=== PATIENT | female | born 1965 | race African-American/Black ===

== ENCOUNTER 2016-08-08 16:43 | Inpatient (IN) ==
[2016-08-08] MEDS ORDERED: FUROSEMIDE 40 MG/4 ML VIAL IV STA (18:02)
--- NOTE | 2016-08-08 18:07 | EKG Report ---
Stationary ECG Study [facility] Test Date: 08/08/2016 5:43:10 PM Pat Name: RYAN BUCK Department: Room: Gender: F Loan Counselor: DAVID Soto : 1965 Requested by: César Cage Order Number: [id number] Reading MD: ALEXSANDER WHEELER Intervals [place] Rate: 83 P: 63 WV: 153 QRS: 85 QRSD: 86 T: 70 QT: 400 QTc: 440 Interpretive Statements SINUS RHYTHM LOW QRS VOLTAGE IN PRECORDIAL LEADS Poor R wave progression Electronically Signed On 08-10-16 12:28:03 CDT by ALEXSANDER WHEELER [email or web address]
[2016-08-08] MEDS ORDERED: FUROSEMIDE 100 MG/10 ML VIAL ONE (18:29)
[2016-08-08 18:35] LABS: Basophils % 0.3 % (0.0-0.8); Eosinophils # 0.1 10*3/uL (0.0-0.87); Eosinophils % 0.8 % (0.00-10.9); Hematocrit 29.2 VOL% (35.7-47.0); Hemoglobin 9.2 GM/DL (12.0-16.0); Immature Granulocytes % 0.6 %; Immature Granulocytes Absolute 0.07 #; Lymphocytes # 1.1 10*3/uL (1.4-4.0); Lymphocytes % 9.4 % (21.3-54.2); Mean Corpuscular HGB Conc 31.5 GM/DL (32-36); Mean Corpuscular Hemoglobin 28 PG (27-34); Mean Platelet Volume 11.9 FL (9.6-12.0); Monocytes # 0.9 10*3/uL (0.11-0.8); Monocytes % 7.6 % (1.7-12.7); NRBC # 0.02 10*3/uL; Neutrophils # 9.7 10*3/uL (1.4-7.4); Neutrophils % 81.3 % (38.7-73.9); Platelet Count 245 T/CUMM (130-400); Red Blood Count 3.32 MC/CUMM (3.8-5.5); Red Cell Distribution Width 16.4 % (9.3-17.3); White Blood Count 11.9 T/CUMM (4-12)
--- NOTE | 2016-08-08 18:39 | XRay Report ---
Referring Physician: César Rendon Exam: XR chest 1V portable Date: August 08, 2016 at 6:28 PM Reason: Chest pain, shortness of breath Comparison: Chest one view portable July 24, 2016 Findings: The cardiac silhouette is again enlarged. The interstitial markings are also prominent bilaterally, which is concerning for mild pulmonary edema. No pneumothorax is identified, but there may be minimal right pleural fluid. The osseous structures appear stable. Impression: 1. Cardiomegaly. 2. Mild pulmonary edema. PROCEDURE INTERPRETED AT [facility] DEPARTMENT OF RADIOLOGY Final Report Signed by: Dr. Eber Gutierrez
[2016-08-08 19:25] LABS: Calcium 8.5 MG/DL (8.5-10.1); Magnesium 2.1 MG/DL (1.8-2.4); Osmolality,Calculated 292.5 MOS/KG (273-304); Potassium 4.2 MMOL/L (3.5-5.1); Troponin I Only 0.028 NG/ML (0.00-0.045)
[2016-08-08] MEDS ORDERED: NON-FORMULARY MEDICATION (Chlorpheniramine/Phenylephrine [Ed-A-Hist 4 Mg-10 Mg Tablet] 1 E PO PRN (20:42)
--- NOTE | 2016-08-08 20:50 | Hospitalist History & Physical ---
Assessment and Plan (1) Edema Status: Acute Assessment and plan: The patient is admitted to the hospital with peripheral edema. I am suspicious that she has nephrotic type proteinuria. The patient was given diuretic in the emergency room with very little urine output and her intravascular volume may not be expanded. The patient will have urinalysis and protein check. We will give intravenous diuretic medication. We will rule out myocardial infarction by EKG and enzymes. Will have evaluation by national service officer and choir member. We will recheck electrolytes in the morning and observe blood pressure on present regimen. I am going leave off JOSELIN inhibitor for now due to previous episodes of worsening renal function on JOSELIN inhibitor. Current Visit: Yes Qualifiers: Edema type: generalized Qualified Code(s): R60.1 - Generalized edema (2) CKD stage 4 due to type 2 diabetes mellitus Status: Chronic Current Visit: Yes (3) Chest pain Status: Acute Current Visit: Yes Qualifiers: Chest pain type: precordial pain Qualified Code(s): R07.2 - Precordial pain (4) Hypertension Problem details: Continue home meds Status: Chronic Current Visit: No Qualifiers: Hypertension type: essential hypertension Qualified Code(s): I10 - Essential (primary) hypertension (5) Diabetes mellitus Status: Chronic Current Visit: No Qualifiers: Diabetes mellitus type: type 2 Diabetes mellitus complication detail: with chronic kidney disease Diabetes mellitus superintendent marine oil terminal insulin use: with superintendent marine oil terminal use Chronic kidney disease stage: stage 4 (severe) (6) Lower extremity edema Status: Resolved Current Visit: No History of Present Illness Chief complaint: Edema and chest pain History of present illness: Ms. Bethea is a 51 year old female followed by Dr. Gerry Pineda. The patient has diabetes mellitus type 2 with chronic kidney disease stage 4. The patient comes to the hospital tonight with complaint of swelling of abdomen as well as thighs legs and feet. The patient's symptoms are associated with substernal chest pressure worse on the left-hand side causing her to be somewhat short of breath with mild cough. The patient states compliance with home medications. The patient denies fever, chills, palpitations. The patient's shortness of breath and swelling are moderate to severe, continuous, and worsening. The patient was discharged from hospital about 8 days ago and at that time was prescribed diuretics. The patient has not been on JOSLEIN in temperature or angiotensin receptor to because they caused her renal failure to be worse. Home Medications Medication Instructions Recorded Confirmed Type Ferrous Sulfate 325 mg PO DAILY 01/30/16 08/08/16 History Insulin Regular [HumuLIN R] See Protocol SUBCUT DAILY 07/14/16 08/08/16 History amLODIPine [Norvasc] 10 mg PO DAILY 07/14/16 08/08/16 History Furosemide Tab [Lasix Tab] 40 mg PO DAILY #30 tablet 07/19/16 08/08/16 Rx hydrALAZINE TAB [Apresoline Tab] 10 mg PO BID #60 tablet 07/19/16 08/08/16 Rx metOLazone [Metolazone] 5 mg PO DAILY #30 tablet 07/19/16 08/08/16 Rx Gabapentin 300 mg PO BID #60 capsule 07/28/16 08/08/16 Rx Insulin Detemir [Levemir] 30 unit SUBCUT QAM #0 bottle 07/28/16 08/08/16 Rx Azithromycin [Zithromax] 500 mg PO DAILY #5 tablet 08/05/16 08/08/16 Rx Albuterol Inhaler [Proventil 2 puff INH Q4H PRN 08/08/16 08/08/16 History Inhaler] Atorvastatin [Lipitor] 20 mg PO DAILY 08/08/16 08/08/16 History Carvedilol [Carvedilol] 6.25 mg PO BID 08/08/16 08/08/16 History Chlorpheniramine/Phenylephrine 1 each PO TID PRN 08/08/16 08/08/16 History [Ed-A-Hist 4 mg-10 mg Tablet] Lisinopril [Prinivil] 10 mg PO DAILY 08/08/16 08/08/16 History Pantoprazole Tab [Protonix Tab] 40 mg PO AC SUPPER 08/08/16 08/08/16 History Allergies Allergy/AdvReac Type Severity Reaction Status Date / Time morphine Allergy HIVES Verified 08/08/16 17:18 Medical,Surgical,& Family Hx - Medical History Cardio: History of: CHF (RECENT HOSP.), Hypertension, Valvular Heart Disease ( Mitral regurgitation), Cardiovascular Problems (cardiomegaly) No history of: NV, Pacemaker Psychological: History of: Anxiety Disorders, Schizophrenia (pt states she knows she's schizophrenic) Neurology: No history of: Cerebrovascular Accident, Seizures HEENT: History of: Eye Problem (glasses, cataracts in right eye) Endocrine: History of: Diabetes Mellitus (IDDM), Diabetes Mellitus (NIDDM), Dyslipidemia, Thyroid Disorder No history of: Adrenal Disease Respiratory: History of: Asthma, Bronchitis, COPD, Obstructive Sleep Apnea, Pneumonia Renal: History of: Renal Problems Genitourinary: No history of: Kidney Stones Gastrointestinal: History of: GERD, Hemorrhoids Musculoskeletal: History of: Musculoskeletal Problems (weakness) No history of: Amputation Hematology: History of: Anemia (chronic kidney disease), Blood Transfusion Reaction (pt broke out in rash) - Surgical History Cardiac Surgeries: Sugical HX of: Cardiac Catheterization (Right heart catheterization) HEENT Surgeries: Patient denies: Tonsilectomy & Adenoidectomy Abdominal Surgeries: Patient denies: Appendectomy, Cholecystectomy, Colonoscopy, EGD Reproductive Surgeries: Surgical HX of;: Tubal Ligation - Family History Family History: Reports;: Family Cancer (uncle had prostate and cousin had breast), Family Diabetes (mom, dad, siblings), Family Heart Disease (mom, dad, siblings), Family Hypertension (mom, dad, siblings), Family Stroke (aunt, mom) Denies;: Family Anesthesia Reaction, Family Psychiatric Problems - Social History Smoking Status: Current some day smoker Frequency of Alcohol Use: None Type of Drug Use: None Marital Status: Single Lives With:: Parent Functional capacity: independent ambulation 12 point system: reviewed and no additional remarkable complaints except as stated Exam - Constitutional Vitals: Period Temp Pulse Resp BP Sys/De La Garza Pulse Ox Last 24 Hr 97.9 F 81-84 13-22 133-138/90-90 94-96 Exam: Constitutional System: Mild distress. No tremulousness. Head: Normocephalic, atraumatic. Ears, Nose and Throat System: No evidence of Otitis or Mastoiditis. No epistaxis or discharge Eyes System: Pupils equal, round, and reactive. Extraocular muscles intact. Neck: Supple, without adenopathy, 1+ jugular venous distention. No thyromegaly , neck mass, or prior surgery apparent. Respiratory System: Chest rales one third up back to auscultation. Cardiovascular System: Heart with regular rate and rhythm. Positive S4 murmur. GI System: Abdomen soft, nontender. Normo active bowel sounds present. Protuberant consistent with minimal ascites Musculoskeletal System: limbs with 2+ pedal edema. Full distal pulses. Neurological System: Mild globin stocking sensory deficit. No aphasia Psychiatric System: Conversation is rational Results - Labs CBC & BMP: 08/08/16 18:24 08/08/16 18:24 Lab Results: I have reviewed the past 24 hour labs Labs: Echocardiogram June 30 reveals moderate reduced left ventricular systolic function with ejection fraction 35% and diastolic dysfunction at that time she had pulmonary hypertension at 43 mmHg estimated - Diagnostic Findings Procedure: Chest x-ray: image reviewed by me, report reviewed by me ( Cardiomegaly and pulmonary edema)
[2016-08-08] MEDS ORDERED: ONDANSETRON 4 MG/2 ML VIAL IV PRN (21:32)
[2016-08-08] MEDS ORDERED: GLUCAGON 1 MG VIAL IM PRN (21:32)
[2016-08-08] MEDS ORDERED: DEXTROSE 50% 25 GM/50 ML VIAL IV PRN (21:32)
[2016-08-08] MEDS: CARVEDILOL 6.25 MG TABLET PO SCH (22:36)
[2016-08-08] MEDS: ENOXAPARIN 30 MG/0.3 ML SYRINGE SUBCUT SCH (22:37)
[2016-08-08] MEDS: INSULIN LISPRO 100 UNIT/ML SUBCUT SCH (22:37)
[2016-08-08] MEDS: GABAPENTIN 100 MG CAPSULE PO SCH (22:37)
[2016-08-08] MEDS: hydrALAZINE 10 MG TABLET PO SCH (22:37)
[2016-08-09] MEDS ORDERED: PHENOL 1.4% THROAT SPRAY 177 ML BOTTLE PO PRN (01:44)
[2016-08-09 04:10] LABS: Apearance,Urine CLEAR (Clear); Bacteria,Urine Occasional /HPF (Few); Bilirubin,Urine Negative (Negative); Blood, Urine Small mg/dL (Negative); Glucose,Urine (UA) Negative (Negative); Hyaline Casts,Urine 1 /LPF (0-3); Ketones,Urine Negative (Negative); Mucus,Urine Occasional /LPF (Occasional); Nitrite,Urine Negative (Negative); Protein,Urine 30 MG/DL; RBC,Urine 3 /HPF (0-4); Squamous Epithelial Cell,Urine Occasional /HPF (0-10); Urine Color Straw (Yellow); Urine Specific Gravity 1.005 (1.001-1.035); Urine Urobilinogen < 2.0 EU/DL (0.2-1.0); WBC,Urine 6 /HPF (0-6)
[2016-08-09 04:23] LABS: Basophils % 0.4 % (0.0-0.8); Eosinophils # 0.1 10*3/uL (0.0-0.87); Eosinophils % 1.3 % (0.00-10.9); Hematocrit 25.9 VOL% (35.7-47.0); Hemoglobin 8.1 GM/DL (12.0-16.0); Immature Granulocytes % 0.8 %; Immature Granulocytes Absolute 0.07 #; Lymphocytes % 10.7 % (21.3-54.2); Mean Corpuscular HGB Conc 31.3 GM/DL (32-36); Mean Corpuscular Hemoglobin 28 PG (27-34); Mean Corpuscular Volume 87.8 FL (87-102); Mean Platelet Volume 12.1 FL (9.6-12.0); Monocytes # 0.8 10*3/uL (0.11-0.8); Monocytes % 8.5 % (1.7-12.7); NRBC # 0.02 10*3/uL; Neutrophils % 78.3 % (38.7-73.9); Platelet Count 233 T/CUMM (130-400); Red Blood Count 2.95 MC/CUMM (3.8-5.5); Red Cell Distribution Width 16.3 % (9.3-17.3); White Blood Count 8.9 T/CUMM (4-12)
[2016-08-09 04:42] LABS: Calcium 8.6 MG/DL (8.5-10.1); Osmolality,Calculated 288.3 MOS/KG (273-304); Potassium 3.8 MMOL/L (3.5-5.1)
[2016-08-09 04:47] LABS: Troponin I Only 0.029 NG/ML (0.00-0.045)
[2016-08-09 05:04] LABS: Microalbum/Creat Ratio Random 1184.6 RATIO (0-30)
--- NOTE | 2016-08-09 08:16 | EKG Report ---
Stationary ECG Study [facility] Test Date: 08/09/2016 7:51:34 AM Pat Name: RYAN BUCK Department: Room: 271 Gender: F Sheet Sorter: : 1965 Requested by: Jones Anderson Order Number: [id number] Reading MD: MIN IBRAHIM Intervals [place] Rate: 78 P: 60 [place]: 150 QRS: 83 QRSD: 86 T: 72 QT: 420 QTc: 453 Interpretive Statements SINUS RHYTHM LOW QRS VOLTAGE IN EXTREMITY LEADS ANTEROSEPTAL MYOCARDIAL INFARCTION, PROBABLY OLD Electronically Signed On 08-11-16 21:24:47 CDT by MIN IBRAHIM [id number]
[2016-08-09] MEDS ORDERED: amLODIPine 10 MG TABLET PO SCH (09:00)
--- NOTE | 2016-08-09 09:50 | Nephrology Consult Note ---
History of Present Illness Chief complaint: edema History of present illness: Ms. Bethea is a 51 year old female is known to me from previous admissions. She has chronic renal impairment with nephrotic syndrome secondary to diabetic nephropathy. She presents with edema. She was hospitalized recently and received IV fluids and left the hospital with some edema and did not take or increase the dose of diuretics and returns with edema. She denies any significant shortness of breath. On physical exam she is comfortable lying in bed with no respiratory distress her chest is clear heart without rub or gallop abdomen soft nontender extremities she does have edema bilateral legs up to the thigh. Impression nephrotic syndrome with stage II to III chronic kidney disease due to diabetic nephropathy #2 edema secondary to #1 Suggestion I agree with the diuretics and we will discontinue her Martinez she says she has no difficulty voiding. Will follow her diuresis with her daily weight she probably will lose about 5-6 kg. Home Medications Medication Instructions Recorded Confirmed Type Ferrous Sulfate 325 mg PO DAILY 01/30/16 08/08/16 History Insulin Regular [HumuLIN R] See Protocol SUBCUT DAILY 07/14/16 08/08/16 History amLODIPine [Norvasc] 10 mg PO DAILY 07/14/16 08/08/16 History Furosemide Tab [Lasix Tab] 40 mg PO DAILY #30 tablet 07/19/16 08/08/16 Rx hydrALAZINE TAB [Apresoline Tab] 10 mg PO BID #60 tablet 07/19/16 08/08/16 Rx metOLazone [Metolazone] 5 mg PO DAILY #30 tablet 07/19/16 08/08/16 Rx Gabapentin 300 mg PO BID #60 capsule 07/28/16 08/08/16 Rx Insulin Detemir [Levemir] 30 unit SUBCUT QAM #0 bottle 07/28/16 08/08/16 Rx Azithromycin [Zithromax] 500 mg PO DAILY #5 tablet 08/05/16 08/08/16 Rx Albuterol Inhaler [Proventil 2 puff INH Q4H PRN 08/08/16 08/08/16 History Inhaler] Atorvastatin [Lipitor] 20 mg PO DAILY 08/08/16 08/08/16 History Carvedilol [Carvedilol] 6.25 mg PO BID 08/08/16 08/08/16 History Chlorpheniramine/Phenylephrine 1 each PO TID PRN 08/08/16 08/08/16 History [Ed-A-Hist 4 mg-10 mg Tablet] Lisinopril [Prinivil] 10 mg PO DAILY 08/08/16 08/08/16 History Pantoprazole Tab [Protonix Tab] 40 mg PO AC SUPPER 08/08/16 08/08/16 History Allergies Allergy/AdvReac Type Severity Reaction Status Date / Time morphine Allergy HIVES Verified 08/08/16 17:18 Medical,Surgical,& Family Hx - Medical History Cardio: History of: CHF (RECENT HOSP.), Hypertension, Valvular Heart Disease ( Mitral regurgitation), Cardiovascular Problems (cardiomegaly) No history of: MS, Pacemaker Psychological: History of: Anxiety Disorders, Schizophrenia (pt states she knows she's schizophrenic) Neurology: No history of: Cerebrovascular Accident, Seizures HEENT: History of: Eye Problem (glasses, cataracts in right eye) Endocrine: History of: Diabetes Mellitus (IDDM), Diabetes Mellitus (NIDDM), Dyslipidemia, Thyroid Disorder No history of: Adrenal Disease Respiratory: History of: Asthma, Bronchitis, COPD, Obstructive Sleep Apnea, Pneumonia Renal: History of: Renal Problems Genitourinary: No history of: Kidney Stones Gastrointestinal: History of: GERD, Hemorrhoids Musculoskeletal: History of: Musculoskeletal Problems (weakness) No history of: Amputation Hematology: History of: Anemia (chronic kidney disease), Blood Transfusion Reaction (pt broke out in rash) - Surgical History Cardiac Surgeries: Sugical HX of: Cardiac Catheterization (Right heart catheterization) HEENT Surgeries: Patient denies: Tonsilectomy & Adenoidectomy Abdominal Surgeries: Patient denies: Appendectomy, Cholecystectomy, Colonoscopy, EGD Reproductive Surgeries: Surgical HX of;: Tubal Ligation - Family History Family History: Reports;: Family Cancer (uncle had prostate and cousin had breast), Family Diabetes (mom, dad, siblings), Family Heart Disease (mom, dad, siblings), Family Hypertension (mom, dad, siblings), Family Stroke (aunt, mom) Denies;: Family Anesthesia Reaction, Family Psychiatric Problems - Social History Smoking Status: Current some day smoker Frequency of Alcohol Use: None Type of Drug Use: None Review of Systems 12 point system: reviewed and no additional remarkable complaints except as stated Exam - Vital Signs Vital signs: Period Temp Pulse Resp BP Sys/De La Garza Pulse Ox Last 24 Hr 97.2 F-98.5 F 77-81 18-20 106-133/58-89 94-100 - General Appearance General appearance: well-developed, well-nourished, appears started age Neck: no JVD, no thyromegaly, no carotid bruit, supple Respiratory: no kyphosis, no scoliosis Cardiology: no murmurs, no rub, no gallops, no edema, regular rate, regular rhythm, normal S1, normal S2 Gastrointestinal: normoactive bowel sounds Integumentary: no rash, warm and dry Neurologic: no focal deficit, no asterixis, alert and oriented x3, reflexes 2+ and symmetric, gait normal, strength 5/5 Musculoskeletal: no deformities (edematous lower extremities), no erythema, no cyanosis, no clubbing Results - Labs CBC & BMP: 08/09/16 03:36 08/09/16 03:36 Assessment and Plan (1) Lower extremity edema Status: Resolved Current Visit: No (2) Chronic kidney disease Problem details: Creatinine improved to 2.8. Status: Chronic Assessment and plan: Stage 3 CKD with nephrotic syndrome due to DM Current Visit: No Qualifiers: Chronic kidney disease stage: stage 4 (severe) Qualified Code(s): N18.4 - Chronic kidney disease, stage 4 (severe) Specialty Discharge - Follow Up or Referrals - Speciality Discharge Instructions Nephrology Instructions: We will check a serum albumin which should be low. We can remove the Martinez catheter since she is able to get to and from the bathroom fairly well and follow her diuresis with her daily weight.
[2016-08-09] MEDS: GABAPENTIN 100 MG CAPSULE PO SCH ×2 (09:53→20:59)
[2016-08-09] MEDS: metOLazone 5 MG TABLET PO SCH (09:53)
[2016-08-09] MEDS: FERROUS SULFATE 325 MG TABLET PO SCH (09:54)
[2016-08-09] MEDS: ATORVASTATIN 20 MG TABLET PO SCH (09:54)
[2016-08-09] MEDS: CARVEDILOL 6.25 MG TABLET PO SCH (09:55)
[2016-08-09] MEDS: INSULIN REGULAR 100 UNIT/ML SUBCUT SCH (09:55)
[2016-08-09] MEDS: INSULIN LISPRO 100 UNIT/ML SUBCUT SCH ×4 (09:55→21:07)
[2016-08-09] MEDS: FUROSEMIDE 100 MG/10 ML VIAL IV SCH (09:56)
--- NOTE | 2016-08-09 10:39 | Hospitalist Progress Note ---
Assessment and Plan (1) Edema Status: Acute Assessment and plan: The patient is admitted to the hospital with peripheral edema. Preliminary indications confirm diagnosis of nephrosis. The patient has begun to receive intravenous diuretic and creatinine is also improving. Blood pressure is mildly low and I am going to decrease the doses of Coreg and hydralazine. The patient was not able to tolerate JOSELIN or arm on previous occasions due to their effects of worsening renal insufficiency. The plan is to obtain cardiology evaluation of the patient's chest discomfort and to continue diuresis of edema with the advice of the stacker straightener. Current Visit: Yes Qualifiers: Edema type: generalized Qualified Code(s): R60.1 - Generalized edema (2) CKD stage 4 due to type 2 diabetes mellitus Status: Chronic Current Visit: Yes (3) Chest pain Status: Acute Current Visit: Yes Qualifiers: Chest pain type: precordial pain Qualified Code(s): R07.2 - Precordial pain (4) Hypertension Problem details: Continue home meds Status: Chronic Current Visit: No Qualifiers: Hypertension type: essential hypertension Qualified Code(s): I10 - Essential (primary) hypertension (5) Diabetes mellitus Status: Chronic Current Visit: No Qualifiers: Diabetes mellitus type: type 2 Diabetes mellitus complication detail: with chronic kidney disease Diabetes mellitus long term care social worker insulin use: with long term care social worker use Chronic kidney disease stage: stage 4 (severe) (6) Lower extremity edema Status: Resolved Current Visit: No Hospitalist: Subjective Interval history: The patient is now admitted to the hospital with edema of lower extremities and some chest heaviness. The patient has symptoms of nephrotic syndrome due to diabetes mellitus type 2, kidney manifestations, chronic kidney disease which has improved to stage III. The patient has passive affect and has taken up the sick role. I encouraged the patient to be more active and independent in her self-care. I coordinated care with Dr. Warren and with the patient's nurse. Exam - Constitutional Vitals: Period Temp Pulse Resp BP Sys/De La Garza Pulse Ox Last 24 Hr 97.2 F-98.5 F 77-81 18-20 106-133/58-89 94-100 Exam: Constitutional System: Mild distress. No tremulousness. Head: Normocephalic, atraumatic. Ears, Nose and Throat System: No evidence of Otitis or Mastoiditis. No epistaxis or discharge Eyes System: Pupils equal, round, and reactive. Extraocular muscles intact. Neck: Supple, without adenopathy, trace jugular venous distention. No thyromegaly, neck mass, or prior surgery apparent. Respiratory System: Chest rales one third up back to auscultation. Cardiovascular System: Heart with regular rate and rhythm. Positive S4 murmur. GI System: Abdomen soft, nontender. Normo active bowel sounds present. Protuberant consistent with minimal ascites Musculoskeletal System: limbs with 2+ pedal edema. Full distal pulses. Neurological System: Mild globin stocking sensory deficit. No aphasia Psychiatric System: Conversation is rational Results - Labs CBC & BMP: 08/09/16 03:36 08/09/16 03:36 Lab Results: I have reviewed the past 24 hour labs
--- NOTE | 2016-08-09 10:48 | Cardiology Consult Note ---
Assessment and Plan (1) Edema Status: Acute Assessment and plan: She is being diuresed which should help, but she is also on 10 mg of Norvasc which should certainly cause significant peripheral edema. I am going to try to change her medical regimen around and get rid of this medication as it is likely contributing to her peripheral edema. Current Visit: Yes Qualifiers: Edema type: generalized Qualified Code(s): R60.1 - Generalized edema (2) Hypertension Status: Acute Current Visit: Yes (3) CKD stage 4 due to type 2 diabetes mellitus Status: Chronic Assessment and plan: Management per nephrology Current Visit: Yes (4) Acute on chronic combined systolic (congestive) and diastolic (congestive) heart failure Problem details: Appreciate recs from Cards. Continue current medical treatment regimen. Fluid intake limitation. Status: Acute Assessment and plan: The patient has recurrent episodes of congestive heart failure. I do not see that she is ever undergone cardiac catheterization for definitive coronary artery assessment. Once she is medically optimized and her renal function is stable, we might consider a variant of coronary artery assessment. Particularly if she is going to need something done about her mitral valve. In the meantime, we will try to diurese her and optimize her medical management. Current Visit: No (5) Asthma Problem details: Albuterol PRN. Continue home meds. Status: Chronic Current Visit: No (6) Mitral regurgitation Status: Chronic Assessment and plan: I am going to get a repeat echocardiogram to assess the severity of her mitral disease again. This could be playing a role in her recurrent heart failure episodes and may need to be addressed surgically. Current Visit: No (7) Diabetes type 2, uncontrolled Status: Acute Current Visit: Yes History of Present Illness - Consult Narrative History of present illness: Ms. Bethea is a 51 year old female who has a history of multiple medical problems including hypertension, diabetes, cardiomyopathy, chronic renal insufficiency, and congestive heart failure. Essentially the patient was just discharged from the hospital about 8 or 9 days ago with an exacerbation of peripheral edema and heart failure. She comes back into the hospital at this time with the same symptoms. Primarily the symptoms are related to lower extremity edema. The symptoms are moderate in severity. There are no associated symptoms. There are no specific exacerbating or alleviating factors. She does not have any chest pain, palpitations, or significant dyspnea. She denies any orthopnea or PND. She denies any fever, chills, or cough. Her laboratory tests show significant renal insufficiency and proteinuria. Nephrology has been consulted to help with that. She had a couple of echocardiograms in 2016 which showed preserved left ventricular systolic function. Her most recent echocardiogram showed an ejection fraction of 35-40% in June 2016. She also had severe mitral regurgitation on that echo. It appears that she had a right heart catheterization about a year ago with right heart systolic pressures of around 50 mmHg. I do not see that she has ever had left heart catheterization, although the "view PCI" function on the EMR is not working so I cannot see older records at this time. At the time I saw the patient she was lying flat in the bed with no dyspnea or other distress. CC: Jones Anderson MD - Home Medications and Allergies Home Medications: Home Medications Medication Instructions Recorded Confirmed Type Ferrous Sulfate 325 mg PO DAILY 01/30/16 08/08/16 History Insulin Regular [HumuLIN R] See Protocol SUBCUT DAILY 07/14/16 08/08/16 History amLODIPine [Norvasc] 10 mg PO DAILY 07/14/16 08/08/16 History Furosemide Tab [Lasix Tab] 40 mg PO DAILY #30 tablet 07/19/16 08/08/16 Rx hydrALAZINE TAB [Apresoline Tab] 10 mg PO BID #60 tablet 07/19/16 08/08/16 Rx metOLazone [Metolazone] 5 mg PO DAILY #30 tablet 07/19/16 08/08/16 Rx Gabapentin 300 mg PO BID #60 capsule 07/28/16 08/08/16 Rx Insulin Detemir [Levemir] 30 unit SUBCUT QAM #0 bottle 07/28/16 08/08/16 Rx Azithromycin [Zithromax] 500 mg PO DAILY #5 tablet 08/05/16 08/08/16 Rx Albuterol Inhaler [Proventil 2 puff INH Q4H PRN 08/08/16 08/08/16 History Inhaler] Atorvastatin [Lipitor] 20 mg PO DAILY 08/08/16 08/08/16 History Carvedilol [Carvedilol] 6.25 mg PO BID 08/08/16 08/08/16 History Chlorpheniramine/Phenylephrine 1 each PO TID PRN 08/08/16 08/08/16 History [Ed-A-Hist 4 mg-10 mg Tablet] Lisinopril [Prinivil] 10 mg PO DAILY 08/08/16 08/08/16 History Pantoprazole Tab [Protonix Tab] 40 mg PO AC SUPPER 08/08/16 08/08/16 History Allergies/Adverse Reactions: Allergies Allergy/AdvReac Type Severity Reaction Status Date / Time morphine Allergy HIVES Verified 08/08/16 17:18 12 point system: reviewed and no additional remarkable complaints except as stated Medical,Surgical,& Family Hx - Medical History Cardio: History of: CHF (RECENT HOSP.), Hypertension, Valvular Heart Disease ( Mitral regurgitation), Cardiovascular Problems (cardiomegaly) No history of: SC, Pacemaker Psychological: History of: Anxiety Disorders, Schizophrenia (pt states she knows she's schizophrenic) Neurology: No history of: Cerebrovascular Accident, Seizures HEENT: History of: Eye Problem (glasses, cataracts in right eye) Endocrine: History of: Diabetes Mellitus (IDDM), Diabetes Mellitus (NIDDM), Dyslipidemia, Thyroid Disorder No history of: Adrenal Disease Respiratory: History of: Asthma, Bronchitis, COPD, Obstructive Sleep Apnea, Pneumonia Renal: History of: Renal Problems Genitourinary: No history of: Kidney Stones Gastrointestinal: History of: GERD, Hemorrhoids Musculoskeletal: History of: Musculoskeletal Problems (weakness) No history of: Amputation Hematology: History of: Anemia (chronic kidney disease), Blood Transfusion Reaction (pt broke out in rash) - Surgical History Cardiac Surgeries: Sugical HX of: Cardiac Catheterization (Right heart catheterization) HEENT Surgeries: Patient denies: Tonsilectomy & Adenoidectomy Abdominal Surgeries: Patient denies: Appendectomy, Cholecystectomy, Colonoscopy, EGD Reproductive Surgeries: Surgical HX of;: Tubal Ligation - Family History Family History: Reports;: Family Cancer (uncle had prostate and cousin had breast), Family Diabetes (mom, dad, siblings), Family Heart Disease (mom, dad, siblings), Family Hypertension (mom, dad, siblings), Family Stroke (aunt, mom) Denies;: Family Anesthesia Reaction, Family Psychiatric Problems - Social History Smoking Status: Current some day smoker Frequency of Alcohol Use: None Type of Drug Use: None Physical Examination Vital Signs Temp Pulse Resp BP Pulse Ox 97.9 F 83 22 133/90 94 L 08/08/16 17:15 08/08/16 17:15 08/08/16 17:15 08/08/16 17:15 08/08/16 17:15 Other: General: Appears well developed, well nourished, no apparent distress HEENT: Normocephalic, atraumatic Neck: Supple Neck, Midline Trachea, No Bruit, No JVD Cardiac: Regular rhythm, No Murmur, no gallop, no rub Lungs: Clear to auscultation, No Wheeze, Rales, Rhonchi Neuro: Cranial Nerve 2-12 Intact, Motor Function Grossly Intact Abdomen: Soft, Active Bowel Sounds, No Masses, No Pulsations/Bruits Skin: Normal color, no rash Extremities: No Clubbing, No Cyanosis, mild lower extremity edema, Normal Upper Extr. Pulses Musculoskeletal: No acute abnormality noted Psychiatric: The patient does not appear to be anxious or depressed Result/EKG - Labs CBC & BMP: 08/09/16 03:36 08/09/16 03:36 Lab Results: I have reviewed the past 24 hour labs Labs: Laboratory Results - last 24 hr 08/08/16 08/09/16 08/09/16 22:09 02:27 02:32 WBC RBC Hgb Hct MCV MCH MCHC RDW Plt Count MPV Neut % (Auto) Lymph % (Auto) [place] % (Auto) Eos % (Auto) Baso % (Auto) Neut # (Auto) Lymph # (Auto) [place] # (Auto) Eos # (Auto) Baso # (Auto) Immature Gran % Nucleated RBC % Immature Gran # Nucleated RBCs # Sodium Potassium Chloride Carbon Dioxide Anion Gap BUN Creatinine GFR Calculation BUN/Creatinine Ratio Glucose POC Glucose 94 46 L* Calculated Osmolality Calcium Magnesium Total Creatine Kinase Troponin I Urine Color Urine Appearance Urine pH Ur Specific [place] Urine Protein Urine Glucose (UA) Urine Ketones Urine Blood Urine Nitrate Urine Bilirubin Urine Urobilinogen Urine Leukocytes Urine RBC Urine WBC Ur Squamous Epith Cells Urine Bacteria Hyaline Casts Urine Mucus Ur Culture Indicated? Ur Random Creatinine 26 Ur Random Microalbumin 308.0 H Microalb/Creat Ratio 1184.6 H 08/09/16 08/09/16 08/09/16 02:32 02:45 03:36 WBC 8.9 RBC 2.95 L Hgb 8.1 L Hct 25.9 L MCV 87.8 MCH 28 MCHC 31.3 L RDW 16.3 Plt Count 233 MPV 12.1 H Neut % (Auto) 78.3 H Lymph % (Auto) 10.7 L [place] % (Auto) 8.5 Eos % (Auto) 1.3 Baso % (Auto) 0.4 Neut # (Auto) 7.0 Lymph # (Auto) 1.0 L [place] # (Auto) 0.8 Eos # (Auto) 0.1 Baso # (Auto) 0.0 Immature Gran % 0.8 Nucleated RBC % 0.2 Immature Gran # 0.07 Nucleated RBCs # 0.02 Sodium Potassium Chloride Carbon Dioxide Anion Gap BUN Creatinine GFR Calculation BUN/Creatinine Ratio Glucose POC Glucose 77 Calculated Osmolality Calcium Magnesium Total Creatine Kinase Troponin I Urine Color Straw Urine Appearance Clear Urine pH 5.0 Ur Specific [place] 1.005 Urine Protein 30 Urine Glucose (UA) Negative Urine Ketones Negative Urine Blood Small Urine Nitrate Negative Urine Bilirubin Negative Urine Urobilinogen < 2.0 H Urine Leukocytes Negative Urine RBC 3 Urine WBC 6 Ur Squamous Epith Cells Occasional Urine Bacteria Occasional Hyaline Casts 1 Urine Mucus Occasional Ur Culture Indicated? Results to follow Ur Random Creatinine Ur Random Microalbumin Microalb/Creat Ratio 08/09/16 08/09/16 08/09/16 03:36 03:36 07:47 WBC RBC Hgb Hct MCV MCH MCHC RDW Plt Count MPV Neut % (Auto) Lymph % (Auto) [place] % (Auto) Eos % (Auto) Baso % (Auto) Neut # (Auto) Lymph # (Auto) [place] # (Auto) Eos # (Auto) Baso # (Auto) Immature Gran % Nucleated RBC % Immature Gran # Nucleated RBCs # Sodium 141 Potassium 3.8 Chloride 105 Carbon Dioxide 25 Anion Gap 14.8 BUN 41 H Creatinine 2.10 H GFR Calculation 33 BUN/Creatinine Ratio 19.00 Glucose 67 L POC Glucose 109 H Calculated Osmolality 288.3 Calcium 8.6 Magnesium 2.0 Total Creatine Kinase 114 Troponin I 0.029 Urine Color Urine Appearance Urine pH Ur Specific [place] Urine Protein Urine Glucose (UA) Urine Ketones Urine Blood Urine Nitrate Urine Bilirubin Urine Urobilinogen Urine Leukocytes Urine RBC Urine WBC Ur Squamous Epith Cells Urine Bacteria Hyaline Casts Urine Mucus Ur Culture Indicated? Ur Random Creatinine Ur Random Microalbumin Microalb/Creat Ratio - EKG EKG results: interpreted by me
[2016-08-09] MEDS: INSULIN GLARGINE 100 UNIT/ML SUBCUT SCH (12:30)
[2016-08-09] MEDS: ASCORBIC ACID 500 MG TABLET PO SCH ×2 (12:35→20:59)
[2016-08-09] MEDS: PANTOPRAZOLE 40 MG TABLET PO SCH (17:50)
[2016-08-09] MEDS: hydrALAZINE 10 MG TABLET PO SCH (21:00)
[2016-08-09] MEDS: ENOXAPARIN 30 MG/0.3 ML SYRINGE SUBCUT SCH (21:06)
[2016-08-09] MEDS: ALBUTEROL 2.5 MG/3 ML NEB RESP TX PRN (22:11)
[2016-08-10] MEDS: ACETAMINOPHEN 325 MG TABLET PO PRN ×3 (00:44→20:50)
[2016-08-10 05:55] LABS: Calcium 8.1 MG/DL (8.5-10.1); Osmolality,Calculated 288.5 MOS/KG (273-304)
[2016-08-10] MEDS: hydrALAZINE 10 MG TABLET PO SCH ×3 (07:11→21:40)
[2016-08-10] MEDS: ALBUTEROL 2.5 MG/3 ML NEB RESP TX PRN (07:31)
[2016-08-10] MEDS: INSULIN LISPRO 100 UNIT/ML SUBCUT SCH ×4 (08:02→20:52)
[2016-08-10] MEDS: FUROSEMIDE 100 MG/10 ML VIAL IV SCH (08:54)
[2016-08-10] MEDS ORDERED: CARVEDILOL 3.125 MG TABLET PO SCH (09:00)
[2016-08-10] MEDS: INSULIN REGULAR 100 UNIT/ML SUBCUT SCH (09:23)
[2016-08-10] MEDS: FERROUS SULFATE 325 MG TABLET PO SCH (09:24)
[2016-08-10] MEDS: ASCORBIC ACID 500 MG TABLET PO SCH ×2 (09:24→20:50)
[2016-08-10] MEDS: ATORVASTATIN 20 MG TABLET PO SCH (09:24)
[2016-08-10] MEDS: CARVEDILOL 12.5 MG TABLET PO SCH (09:25)
[2016-08-10] MEDS: GABAPENTIN 100 MG CAPSULE PO SCH ×2 (09:25→20:51)
[2016-08-10] MEDS: INSULIN GLARGINE 100 UNIT/ML SUBCUT SCH (09:25)
[2016-08-10] MEDS: metOLazone 5 MG TABLET PO SCH (09:25)
--- NOTE | 2016-08-10 10:24 | Nephrology Progress Note ---
Nephrology - PN: Subj Interval history: Ms. Bethea is seen in follow-up of her chronic renal failure and nephrotic syndrome due to diabetic nephropathy. She is diuresing and improving. We are following her diuretic response with weights and there has been no weight loss yet. We will adjust diuretics to achieve weight loss if none is forthcoming. Exam (PN)-Nephrology - Vital Signs Vital signs: Period Temp Pulse Resp BP Sys/[place] Pulse Ox Last 24 Hr 97.8 F-98.8 F 70-81 18-22 114-138/67-80 90-100 - Lab 08/09/16 03:36 08/10/16 04:19 Most recent lab results Calcium 8.1 MG/DL (8.5-10.1) L 08/10/16 04:19 Magnesium 2.0 MG/DL (1.8-2.4) 08/10/16 04:19 Assessment and Plan (1) Chronic kidney disease Problem details: Creatinine improved to 2.8. Status: Chronic Assessment and plan: Stage 3 CKD with nephrotic syndrome due to DM Current Visit: No Qualifiers: Qualified Code(s): N18.4 - Chronic kidney disease, stage 4 (severe)
--- NOTE | 2016-08-10 12:38 | Hospitalist Progress Note ---
Assessment and Plan (1) CHF (congestive heart failure) Problem details: chronic renal insufficiency, valvular heart disease with mitral regurgitation Status: Acute Assessment and plan: Left ventricular dysfunction with ejection fraction 35-40% with severe mitral regurgitation and moderately severe tricuspid regurgitation. Patient requiring high doses of diuretic therapy due to her chronic kidney disease and nephrotic syndrome related to her chronic diabetes. Current Visit: No Qualifiers: Congestive heart failure chronicity: acute on chronic (2) Hypertension Problem details: Continue home meds Status: Chronic Current Visit: No Qualifiers: Hypertension type: essential hypertension Qualified Code(s): I10 - Essential (primary) hypertension (3) Diabetes mellitus Status: Chronic Current Visit: No Qualifiers: Diabetes mellitus type: type 2 Diabetes mellitus complication detail: with chronic kidney disease Diabetes mellitus prison insulin use: with intermodal customer service use Chronic kidney disease stage: stage 4 (severe) (4) Chronic kidney disease Problem details: Creatinine improved to 2.8. Status: Chronic Current Visit : No Qualifiers: Chronic kidney disease stage: stage 3 (moderate) Qualified Code(s): N18.3 - Chronic kidney disease, stage 3 (moderate) (5) Cardiomyopathy Status: Chronic Current Visit: No (6) Hypertension Status: Chronic Current Visit: Yes (7) Chronic kidney disease Status: Chronic Current Visit: Yes Qualifiers: Chronic kidney disease stage: stage 3 (moderate) Qualified Code(s): N18.3 - Chronic kidney disease, stage 3 (moderate) Hospitalist: Subjective Interval history: Patient seen and examined. No acute events overnight. Case discussed with nursing staff. Labs reviewed. Echocardiogram from June. EF 35-40%. Patient also has severe mitral regurgitation and moderate to severe tricuspid regurgitation. She is being treated with Lasix and Zaroxolyn and is being followed by nephrology. She reports improvement in her symptoms. Exam - Constitutional Vitals: Period Temp Pulse Resp BP Sys/[place] Pulse Ox Last 24 Hr 97.4 F-98.8 F 69-81 18-22 113-138/67-80 90-100 Exam: Constitutional System: Mild distress. No tremulousness. Head: Normocephalic, atraumatic. Ears, Nose and Throat System: No pain or tenderness. No epistaxis or discharge Eyes System: Pupils equal, round, and reactive. Extraocular muscles intact. Neck: Supple, without adenopathy, No jugular venous distention. No thyromegaly, neck mass, or prior surgery apparent. Respiratory System: Chest clear to auscultation. Cardiovascular System: Heart with regular rate and rhythm. No murmur. GI System: Abdomen soft, nontender. Normo active bowel sounds present. Musculoskeletal System: limbs with 2+ pedal edema. Full distal pulses. Neurological System: No discernable sensory deficit. No aphasia Psychiatric System: Conversation is rational Results - Labs CBC & BMP: 08/09/16 03:36 08/10/16 04:19 Lab Results: I have reviewed the past 24 hour labs
--- NOTE | 2016-08-10 16:56 | Cardiology Progress Note ---
I, Tamica Egan RN, am scribing for, and in the presence of, Chan Abebe MD 16:53. Assessment and Plan (1) Edema Status: Acute Assessment and plan: This is acute on chronic. She was admitted because of a exacerbation of her edema. I think she has multiple issues as a cause of this including her LV dysfunction, mitral regurgitation, and moderately increased right-sided pressures. She needs aggressive diuresis but I question her compliance is going to be after discharge Current Visit: Yes Qualifiers: Edema type: generalized Qualified Code(s): R60.1 - Generalized edema (2) Hypertension Status: Chronic Assessment and plan: Patient's blood pressure stable at this time on present medical regimen. Current Visit: Yes (3) CKD stage 4 due to type 2 diabetes mellitus Status: Chronic Assessment and plan: This certainly makes diuresis more difficult. Current Visit: Yes (4) Acute on chronic combined systolic (congestive) and diastolic (congestive) heart failure Status: Acute Assessment and plan: She does not have this by her noncompliance that appears to be present. I suspect at home she is noncompliant with medications and certainly not her diet. Current Visit: Yes (5) Asthma Problem details: Albuterol PRN. Continue home meds. Status: Chronic Assessment and plan: Stable at this time. Current Visit: No (6) Mitral regurgitation Status: Chronic Assessment and plan: Severe by her recent echocardiogram report. Current Visit: Yes (7) Diabetes type 2, uncontrolled Status: Chronic Current Visit: Yes Cardiology - PN: Subj Interval history: [employer]: Dr. Pereira Ms. Bethea has a history of hypertension, diabetes, cardiomyopathy, chronic renal insufficiency, congestive heart failure. She was just discharged from the hospital about a week ago who with an exacerbation of peripheral edema and heart failure. She presented to the emergency department on August 08 with complaints of generalized edema to abdomen and bilateral lower extremities 1 week. Her most recent echocardiogram in June of this year showed ejection fraction of 35-40% with severe mitral regurgitation. Her Norvasc has been discontinued and her carvedilol has been increased 0.5 mg p.o. twice daily. According to records she was given IV diuretic medication emergency department with very little urine output. BNP on admission was 1122, creatinine 2.3. Currently she is sitting up in bed in no acute distress. She denies any chest pain, palpitations, or dizziness. Oxygen is in use via nasal cannula, she states her breathing has improved. metal lather monitor currently shows sinus rhythm with heart rates in the 70s, blood pressure 117/68. She is getting Lasix 120 mg IV daily as well as Zaroxolyn 5 mg p.o. daily. Her creatinine is unchanged from admission at 2.3. History, assessment and evaluation as noted above. When I walked in the room to see the patient she was eating chips i.e.Cheetos. The patient's had a good diuresis. She feels better less short of breath. Certainly the question though her compliance when talking to her about her history and care at home. Her severe mitral regurgitation certainly does not help. Exam (Progress Note) - Constitutional Vitals: Period Temp Pulse Resp BP Sys/[place] Pulse Ox Last 24 Hr 97.8 F-98.8 F 70-81 18-22 114-138/67-80 90-100 General appearance: no acute distress, morbidly obese - Head Head exam: Absent: abrasion, hematoma - Eye Eye exam: Absent: periorbital swelling, laceration to eyelids - Neck Neck exam: Absent: tenderness - Respiratory Respiratory exam: Present: clear to auscultation bilaterally, other (Oxygen via nasal cannula). Absent: accessory muscle use, chest wall tenderness - Cardiovascular Cardiovascular exam: Present: regular rate and rhythm, systolic murmur ( consistent with mitral regurgitation.) - GI/Abdominal GI/Abdominal exam: Present: normal bowel sounds, soft. Absent: distended, tenderness - Extremities Exam Extremities exam: Present: edema (4+ bilateral lower extremities) - Neurological Exam Neurological exam: Present: alert, oriented X3 - Psychiatric Psychiatric exam: Present: normal affect, normal mood - Skin Skin exam: Present: warm, dry Result/EKG - Labs CBC & BMP: 08/09/16 03:36 08/10/16 04:19 Lab Results: I have reviewed the past 24 hour labs Labs: Laboratory Results - last 24 hr 08/09/16 08/09/16 08/09/16 04:41 12:30 17:37 Sodium Potassium Chloride Carbon Dioxide Anion Gap BUN Creatinine GFR Calculation BUN/Creatinine Ratio Glucose POC Glucose 180 H 202 H Calculated Osmolality Calcium Magnesium Albumin 2.2 L 08/09/16 08/10/16 08/10/16 19:20 04:19 07:19 Sodium 139 Potassium 4.0 Chloride 103 Carbon Dioxide 24 Anion Gap 16.0 H BUN 42 H Creatinine 2.30 H GFR Calculation 29 BUN/Creatinine Ratio 18.00 Glucose 124 H POC Glucose 202 H 117 H Calculated Osmolality 288.5 Calcium 8.1 L Magnesium 2.0 Albumin - Impressions Impressions: Telemetry was sinus rhythm. - EKG EKG results: interpreted by me EKG shows: sinus rhythm I, Chan Abebe MD, personally performed the services described in this documentation, ascribed by Tamica Egan RN in my presence, and it is both accurate and complete [id number] .
[2016-08-10] MEDS: PANTOPRAZOLE 40 MG TABLET PO SCH (17:06)
[2016-08-10] MEDS: ENOXAPARIN 30 MG/0.3 ML SYRINGE SUBCUT SCH (20:51)
[2016-08-11 05:20] LABS: Basophils # 0.1 10*3/uL (0.0-0.2); Basophils % 1.2 % (0.0-0.8); Eosinophils # 0.1 10*3/uL (0.0-0.87); Eosinophils % 2.1 % (0.00-10.9); Hematocrit 27.1 VOL% (35.7-47.0); Hemoglobin 8.4 GM/DL (12.0-16.0); Immature Granulocytes % 0.7 %; Immature Granulocytes Absolute 0.05 #; Lymphocytes # 1.2 10*3/uL (1.4-4.0); Lymphocytes % 18.3 % (21.3-54.2); Mean Corpuscular Hemoglobin 27 PG (27-34); Mean Corpuscular Volume 87.4 FL (87-102); Mean Platelet Volume 12.2 FL (9.6-12.0); Monocytes # 0.7 10*3/uL (0.11-0.8); Neutrophils # 4.6 10*3/uL (1.4-7.4); Neutrophils % 67.7 % (38.7-73.9); Platelet Count 252 T/CUMM (130-400); White Blood Count 6.8 T/CUMM (4-12)
[2016-08-11 05:56] LABS: Calcium 8.2 MG/DL (8.5-10.1); Osmolality,Calculated 288.5 MOS/KG (273-304)
[2016-08-11] MEDS: INSULIN LISPRO 100 UNIT/ML SUBCUT SCH ×4 (07:32→21:41)
[2016-08-11] MEDS: INSULIN GLARGINE 100 UNIT/ML SUBCUT SCH (08:37)
[2016-08-11] MEDS: ASCORBIC ACID 500 MG TABLET PO SCH ×2 (08:38→21:37)
[2016-08-11] MEDS: FERROUS SULFATE 325 MG TABLET PO SCH (08:39)
[2016-08-11] MEDS: CARVEDILOL 12.5 MG TABLET PO SCH (08:39)
[2016-08-11] MEDS: metOLazone 5 MG TABLET PO SCH (08:39)
[2016-08-11] MEDS: ATORVASTATIN 20 MG TABLET PO SCH (08:39)
[2016-08-11] MEDS: hydrALAZINE 10 MG TABLET PO SCH ×2 (08:39→21:38)
[2016-08-11] MEDS: GABAPENTIN 100 MG CAPSULE PO SCH ×2 (08:39→21:38)
[2016-08-11] MEDS: FUROSEMIDE 100 MG/10 ML VIAL IV SCH (08:42)
[2016-08-11] MEDS: INSULIN REGULAR 100 UNIT/ML SUBCUT SCH (09:11)
--- NOTE | 2016-08-11 10:00 | Nephrology Progress Note ---
Nephrology - PN: Subj Interval history: Ms. Bethea is seen in follow-up for chronic renal failure with nephrotic range proteinuria all due to diabetes mellitus. She is diuresing and has less edema though she still has edema of her thighs. The scales revealed 5 kg weight loss since admission. I think we will check some lab tomorrow and hopefully she will lose to 3 more kilos and should be able to be discharged at that point. She is lying flat in bed and in no distress. Exam (PN)-Nephrology - Vital Signs Vital signs: Period Temp Pulse Resp BP Sys/[place] Pulse Ox Last 24 Hr 97.4 F-99.1 F 69-79 18-20 107-132/64-82 93-98 - Lab 08/11/16 04:18 08/11/16 04:18 Most recent lab results Calcium 8.2 MG/DL (8.5-10.1) L 08/11/16 04:18 Magnesium 2.0 MG/DL (1.8-2.4) 08/11/16 04:18 Assessment and Plan (1) Chronic kidney disease Problem details: Creatinine improved to 2.8. Status: Chronic Assessment and plan: Stage 3 CKD with nephrotic syndrome due to DM Current Visit: No Qualifiers: Chronic kidney disease stage: stage 3 (moderate) Qualified Code(s): N18.3 - Chronic kidney disease, stage 3 (moderate)
--- NOTE | 2016-08-11 13:43 | Cardiology Progress Note ---
Jignesh Hawthorne April RN, am scribing for, and in the presence of, Chan Abebe MD 13:39. Assessment and Plan (1) Acute on chronic combined systolic (congestive) and diastolic (congestive) heart failure Status: Acute Assessment and plan: Clinically this is much improved. Her weight indicates began her clinical symptomatology is mostly resolved. Continue aggressive diuresis. Current Visit: Yes (2) Mitral regurgitation Status: Chronic Assessment and plan: This is moderate to severe. This certainly may contribute to your heart failure. Current Visit: Yes (3) Diabetes type 2, uncontrolled Status: Chronic Assessment and plan: Follow-up the primary service. Current Visit: Yes (4) Edema Status: Acute Assessment and plan: This overall appears to be improving. Current Visit: Yes Qualifiers: Edema type: generalized Qualified Code(s): R60.1 - Generalized edema (5) Hypertension Status: Chronic Assessment and plan: Blood pressures managed at this time. Current Visit: Yes (6) CKD stage 4 due to type 2 diabetes mellitus Status: Chronic Assessment and plan: This is at least stable at this time. Current Visit: Yes (7) Asthma Problem details: Albuterol PRN. Continue home meds. Status: Chronic Assessment and plan: Stable without any wheezing. Continue present therapy. Current Visit: No Cardiology - PN: Subj Interval history: Escrow Processor: Dr. Pereira Ms. Bethea is seen resting in bed in no acute distress. She denies chest pain, palpitations, or dizziness. She says her breathing has improved a good deal, oxygen in use via nasal cannula. groundwater monitoring technician currently shows sinus rhythm with heart rates in the 70s, blood pressure this morning is 117/82. She is on Lasix 20 mg IV daily and Zaroxolyn 5 mg p.o. daily. Her creatinine is unchanged at 2.3. Electrolytes are unremarkable. Her BUN is up a little bit. Agree with all the above. There is a question whether the patient is compliant with fluid intake. When discussing her fluid intake at home and sees is probably taking in a fair amount. Certainly her weight is down if it is accurate but her Narinder not reflect significant negative output that would account for her weight change. She is on furosemide and metolazone both. Her exam certainly indicates he reveals decreased volume. Will need to be aggressive in her volume balance especially need to be negative at this time. Exam (Progress Note) - Constitutional Vitals: Period Temp Pulse Resp BP Sys/De La Garza Pulse Ox Last 24 Hr 97.4 F-99.1 F 69-79 18-20 107-132/64-82 93-98 General appearance: no acute distress, morbidly obese - Head Head exam: Absent: abrasion, hematoma - Eye Eye exam: Absent: periorbital swelling, laceration to eyelids - Respiratory Respiratory exam: Present: clear to auscultation bilaterally, other (Oxygen via nasal cannula). Absent: accessory muscle use, chest wall tenderness - Cardiovascular Cardiovascular exam: Present: regular rate and rhythm, systolic murmur ( Consistent with mitral regurgitation) - GI/Abdominal GI/Abdominal exam: Present: normal bowel sounds, firm, tenderness. Absent: distended - Extremities Exam Extremities exam: Present: edema (2+ bilateral lower extremities, is less tense. ) - Neurological Exam Neurological exam: Present: alert, oriented X3 - Psychiatric Psychiatric exam: Present: normal affect, normal mood - Skin Skin exam: Present: warm, dry Result/EKG - Labs CBC & BMP: 08/11/16 04:18 08/11/16 04:18 Lab Results: I have reviewed the past 24 hour labs Labs: Laboratory Results - last 24 hr 08/10/16 08/10/16 08/10/16 12:00 16:03 20:10 WBC RBC Hgb Hct MCV MCH MCHC RDW Plt Count MPV Neut % (Auto) Lymph % (Auto) [place] % (Auto) Eos % (Auto) Baso % (Auto) Neut # (Auto) Lymph # (Auto) [place] # (Auto) Eos # (Auto) Baso # (Auto) Immature Gran % Nucleated RBC % Immature Gran # Nucleated RBCs # Sodium Potassium Chloride Carbon Dioxide Anion Gap BUN Creatinine GFR Calculation BUN/Creatinine Ratio Glucose POC Glucose 162 H 199 H 263 H Calculated Osmolality Calcium Magnesium 08/11/16 08/11/16 08/11/16 04:18 04:18 07:05 WBC 6.8 RBC 3.10 L Hgb 8.4 L Hct 27.1 L MCV 87.4 MCH 27 MCHC 31.0 L RDW 16.0 Plt Count 252 MPV 12.2 H Neut % (Auto) 67.7 Lymph % (Auto) 18.3 L [place] % (Auto) 10.0 Eos % (Auto) 2.1 Baso % (Auto) 1.2 H Neut # (Auto) 4.6 Lymph # (Auto) 1.2 L [place] # (Auto) 0.7 Eos # (Auto) 0.1 Baso # (Auto) 0.1 Immature Gran % 0.7 Nucleated RBC % 0.0 Immature Gran # 0.05 Nucleated RBCs # 0.00 Sodium 139 Potassium 4.0 Chloride 103 Carbon Dioxide 26 Anion Gap 14.0 BUN 48 H Creatinine 2.30 H GFR Calculation 28 BUN/Creatinine Ratio 20.00 Glucose 84 POC Glucose 110 H Calculated Osmolality 288.5 Calcium 8.2 L Magnesium 2.0 - EKG EKG results: interpreted by me EKG shows: sinus rhythm IAndrae John Timothy, MD, personally performed the services described in this documentation, ascribed by Tamica Egan RN in my presence, and it is both accurate and complete [id number] .
[2016-08-11] MEDS: PANTOPRAZOLE 40 MG TABLET PO SCH (16:34)
--- NOTE | 2016-08-11 16:46 | Hospitalist Progress Note ---
Assessment and Plan (1) CHF (congestive heart failure) Problem details: chronic renal insufficiency, valvular heart disease with mitral regurgitation Status: Acute Assessment and plan: Left ventricular dysfunction with ejection fraction 35-40% with severe mitral regurgitation and moderately severe tricuspid regurgitation. Patient requiring high doses of diuretic therapy due to her chronic kidney disease and nephrotic syndrome related to her chronic diabetes. Current Visit: No Qualifiers: Congestive heart failure chronicity: acute on chronic (2) Hypertension Problem details: Continue home meds Status: Chronic Current Visit: No Qualifiers: Hypertension type: essential hypertension Qualified Code(s): I10 - Essential (primary) hypertension (3) Diabetes mellitus Status: Chronic Current Visit: No Qualifiers: Diabetes mellitus type: type 2 Diabetes mellitus complication detail: with chronic kidney disease Diabetes mellitus nursing home insulin use: with long term care phlebotomist use Chronic kidney disease stage: stage 4 (severe) (4) Chronic kidney disease Problem details: Creatinine improved to 2.8. Status: Chronic Current Visit : No Qualifiers: Chronic kidney disease stage: stage 3 (moderate) Qualified Code(s): N18.3 - Chronic kidney disease, stage 3 (moderate) (5) Cardiomyopathy Status: Chronic Current Visit: No (6) Hypertension Status: Chronic Current Visit: Yes (7) Chronic kidney disease Status: Chronic Current Visit: Yes Qualifiers: Chronic kidney disease stage: stage 3 (moderate) Qualified Code(s): N18.3 - Chronic kidney disease, stage 3 (moderate) Hospitalist: Subjective Interval history: Patient seen and examined. No acute events overnight. Case discussed with nursing staff. Labs reviewed. Laying flat without shortness of breath. Nasal cannula oxygen in place. Swelling is improved. Nephrology and cardiology notes reviewed. Patient receiving 120 mg of IV Lasix daily as well as 5 mg of Zaroxolyn by mouth daily. Anticipate discharge home tomorrow with outpatient follow-up. Patient needs close follow-up and continued education regarding her diet and fluid intake. Exam - Constitutional Vitals: Period Temp Pulse Resp BP Sys/De La Garza Pulse Ox Last 24 Hr 97.3 F-99.1 F 75-79 18-20 107-139/64-82 93-99 Exam: Constitutional System: Mild distress. No tremulousness. Head: Normocephalic, atraumatic. Ears, Nose and Throat System: No pain or tenderness. No epistaxis or discharge Eyes System: Pupils equal, round, and reactive. Extraocular muscles intact. Neck: Supple, without adenopathy, No jugular venous distention. No thyromegaly, neck mass, or prior surgery apparent. Respiratory System: Chest clear to auscultation. Cardiovascular System: Heart with regular rate and rhythm. No murmur. GI System: Abdomen soft, nontender. Normo active bowel sounds present. Musculoskeletal System: limbs with 2+ pedal edema. Full distal pulses. Neurological System: No discernable sensory deficit. No aphasia Psychiatric System: Conversation is rational Results - Labs CBC & BMP: 08/11/16 04:18 08/11/16 04:18
[2016-08-11] MEDS: ENOXAPARIN 30 MG/0.3 ML SYRINGE SUBCUT SCH (21:40)
[2016-08-12 06:00] LABS: Calcium 8.3 MG/DL (8.5-10.1); Osmolality,Calculated 288.4 MOS/KG (273-304); Potassium 3.7 MMOL/L (3.5-5.1)
--- NOTE | 2016-08-12 08:32 | Nephrology Progress Note ---
Nephrology - PN: Subj Interval history: Ms. Bethea is seen in follow-up of her nephrotic syndrome and chronic renal impairment due to diabetic nephropathy. She is diuresed further still has some edema. She is taking 120 Lasix each morning IV and 5 mg of Zaroxolyn each morning. We discussed her diuretic dosage with her and the need to hold her diuretics if she feels weak and has no edema and the need to increase them if she becomes quite edematous. I think she is fine to go home on 5 mg of Zaroxolyn each morning and 160 mg of Lasix each morning. Her potassium is now 3.7 and will likely fall further with continued diuresis so 10 mEq of KCl daily while she is taking diuretics would be garcia. We can see her in our clinic in 2-3 weeks and would be happy to do that. Hopefully she will bring all her medicines to that clinic appointment. Exam (PN)-Nephrology - Vital Signs Vital signs: Period Temp Pulse Resp BP Sys/De La Garza Pulse Ox Last 24 Hr 97.3 F-101.3 F 77-87 16-20 113-144/65-82 93-99 - Lab 08/11/16 04:18 08/12/16 05:03 Most recent lab results Calcium 8.3 MG/DL (8.5-10.1) L 08/12/16 05:03 Magnesium 2.0 MG/DL (1.8-2.4) 08/11/16 04:18 Assessment and Plan (1) Chronic kidney disease Problem details: Creatinine improved to 2.8. Status: Chronic Assessment and plan: Stage 3 CKD with nephrotic syndrome due to DM Current Visit: No Qualifiers: Chronic kidney disease stage: stage 3 (moderate) Qualified Code(s): N18.3 - Chronic kidney disease, stage 3 (moderate)
[2016-08-12] MEDS: CARVEDILOL 12.5 MG TABLET PO SCH (09:06)
[2016-08-12] MEDS: GABAPENTIN 100 MG CAPSULE PO SCH (09:06)
[2016-08-12] MEDS: FERROUS SULFATE 325 MG TABLET PO SCH (09:07)
[2016-08-12] MEDS: ATORVASTATIN 20 MG TABLET PO SCH (09:07)
[2016-08-12] MEDS: ASCORBIC ACID 500 MG TABLET PO SCH (09:07)
[2016-08-12] MEDS: hydrALAZINE 10 MG TABLET PO SCH (09:07)
[2016-08-12] MEDS: metOLazone 5 MG TABLET PO SCH (09:08)
[2016-08-12] MEDS: FUROSEMIDE 100 MG/10 ML VIAL IV SCH (09:09)
[2016-08-12] MEDS: INSULIN GLARGINE 100 UNIT/ML SUBCUT SCH (09:13)
[2016-08-12] MEDS: INSULIN LISPRO 100 UNIT/ML SUBCUT SCH ×3 (09:16→16:19)
[2016-08-12] MEDS: INSULIN REGULAR 100 UNIT/ML SUBCUT SCH (09:16)
--- NOTE | 2016-08-12 13:31 | Cardiology Progress Note ---
Addendum entered and electronically signed by Nidhi Chinchilla NP 08/12/16 15: 01: Okay to be discharged from rn relief charge standpoint. Adding Hydralazine 25mg orally BID, Imdur 15mg orally daily (these are new). Follow up with Dr. Pereira 1 month. Original Note: <Nidhi Chinchilla - Last Filed: 08/12/16 13:02> Assessment and Plan - Time spent with patient Time spent with patient: Greater than 30 minutes (1) Cardiomyopathy Status: Chronic Assessment and plan: See plan of care listed below (2) Hypertension Status: Chronic Assessment and plan: See plan of care listed below (3) Dyslipidemia Status: Chronic Assessment and plan: See plan of care listed below (4) Sleep apnea Status: Chronic Assessment and plan: See plan of care listed below (5) Noncompliance Status: Chronic Assessment and plan: See plan of care listed below (6) Hypertension Problem details: Continue home meds Status: Chronic Assessment and plan: See plan of care listed below Qualifiers: Hypertension type: essential hypertension Qualified Code(s): I10 - Essential (primary) hypertension (7) Diabetes mellitus Status: Chronic Assessment and plan: See plan of care listed below Qualifiers: Diabetes mellitus type: type 2 Diabetes mellitus complication detail: with chronic kidney disease Diabetes mellitus intermediate card tender insulin use: with long-term use Chronic kidney disease stage: stage 4 (severe) (8) Chronic kidney disease Problem details: Creatinine improved to 2.8. Status: Chronic Assessment and plan: See plan of care listed below Qualifiers: Chronic kidney disease stage: stage 3 (moderate) Qualified Code(s): N18.3 - Chronic kidney disease, stage 3 (moderate) (9) CHF (congestive heart failure) Problem details: chronic renal insufficiency, valvular heart disease with mitral regurgitation Status: Acute Assessment and plan: See plan of care listed below Qualifiers: Congestive heart failure type: systolic Congestive heart failure chronicity : acute on chronic Qualified Code(s): I50.23 - Acute on chronic systolic ( congestive) heart failure (10) Mitral regurgitation Status: Chronic (11) Anemia Problem details: Chronic. Monitor H/H. Transfuse if needed. Status: Chronic Assessment and plan: See plan of care listed below Qualifiers: Other causes of anemia: chronic disease, kidney (12) Diabetes type 2, uncontrolled Status: Chronic Assessment and plan: See plan of care listed below Cardiology - PN: Subj Interval history: MARKETING SECRETARY: DR. PEREIRA PCP: DR. LYNSEY DARLING SUMMARY: Ms. Bethea, 51BF, who has not followed up in cardiology clinic but has frequent admissions for recurrent congestive heart failure. History of: multiple medical problems including hypertension, diabetes, cardiomyopathy, chronic renal insufficiency, and congestive heart failure. July 2015, patient underwent JAMI and right heart catheterization for evaluation of pulmonary hypertension (right heart systolic pressures of around 50 mmHg.) She had chronic renal insufficiency and left heart catheterization was to be performed at a later date when her renal function improved. She is not demonstrated compliance with her follow-through and has therefore not undergone cardiac catheterization. Echocardiogram June 2016 reveals EF of 35-40%, grade 1 diastolic dysfunction, severe MR, PAP 43 mmHg. Patient presented to the emergency department August 09, 2016 with acute on chronic congestive heart failure secondary to severe systolic dysfunction (EF 35-40%), [employer] classification III-IV. During his hospital stay, she has diuresed well. AUGUST 12, 2016: This morning, she continues to do well. She is using oxygen only intermittently. She has diuresed a total of 8 kg since admission and 1-1/2 kg overnight. Creatinine has been stable and unchanged during this hospital stay with a creatinine this morning of 2.3. Tolerating betablocker, Atorvastatin. Avoiding JOSELIN due to fear of worsening renal failure. Will had low dose Hydralazine and Imdur and monitor BP closely. ASSESSMENT/PLAN: 1. CHF - acute on chronic CHF, secondary to reduced LVEF (35%-40%) and non- compliance, NYHA Class III-IV. Adding Hydralazine and Imdur. Avoiding JOSELIN- Inhibitor for fear of worsening renal insufficiency. 2. CARDIOMYOPATHY - etiology unknown as she has been non-compliant with follow -up/heart cath 3. PULMONARY HYPERTENSION - continue current plan of care 4. DYSLIPIDEMIA - continue lipid lowering agent 5. CRI - stage III. Continue current plan of care 6. NON-COMPLIANCE - reiterated importance of compliance 7. MITRAL REGURGITATION - moderate to severe. 8. DIABETES - continue current plan of care. 9. ANEMIA - chronic. Continue to follow as needed. Exam (Progress Note) - Constitutional Vitals: Period Temp Pulse Resp BP Sys/De La Garza Pulse Ox Last 24 Hr 97.6 F-101.3 F 69-87 16-20 124-144/71-82 94-100 Exam: General: [Appears well with no apparent distress.] [Pleasant and cooperative. ] [Appears comfortable.] HEENT: [PERRL, normocephalic, atraumatic. Mucous membranes moist. No jaundice noted. Conjunctiva moist and clear, sclerae anicteric] Neck: No JVD/HJR, no thyromegaly or lymphadenopathy noted. No carotid bruit appreciated Cardiac: [Regular rate and rhythm.] [III/ HSM heard best at 5ICS left. Lungs: [Relatively clear to to auscultation without wheezes. Using oxygen intermittently Abdomen: Soft, bowel sounds normoactive. Nontender and nondistended. No abdominal bruit or thrill noted. No masses noted. Musculoskeletal: No fluid collection. Decreased range of motion is noted. Extremities: No clubbing, cyanosis noted. [ No edema noted.] Upper extremity pulses 2+. Lower extremity pulses 1+. Brawny edema noted BLE. Skin: No unusual lesions or rashes. No skin breakdown appreciated. Neuro: Awake, alert and oriented 3. Moves all extremities well without hemiparesis or paralysis. No essential tremor is appreciated. Result/EKG - Labs CBC & BMP: 08/11/16 04:18 08/12/16 05:03 Lab Results: I have reviewed the past 24 hour labs Labs: Laboratory Results - last 24 hr 08/11/16 08/11/16 08/12/16 16:06 21:24 05:03 Sodium 140 Potassium 3.7 Chloride 102 Carbon Dioxide 28 Anion Gap 13.7 BUN 42 H Creatinine 2.30 H GFR Calculation 28 BUN/Creatinine Ratio 18.00 Glucose 77 POC Glucose 261 H 190 H Calculated Osmolality 288.4 Calcium 8.3 L 08/12/16 08/12/16 08/12/16 07:51 11:30 12:17 Sodium Potassium Chloride Carbon Dioxide Anion Gap BUN Creatinine GFR Calculation BUN/Creatinine Ratio Glucose POC Glucose 140 H 83 39 L* Calculated Osmolality Calcium 08/12/16 08/12/16 12:31 12:49 Sodium Potassium Chloride Carbon Dioxide Anion Gap BUN Creatinine GFR Calculation BUN/Creatinine Ratio Glucose POC Glucose 44 L* 70 L Calculated Osmolality Calcium - EKG EKG results: interpreted by me EKG shows: sinus rhythm Specialty Discharge - Follow Up or Referrals Follow up with: Kel Pereira MD [Physician] - Trung Warren MD [Physician] - <Chan Abebe - Last Filed: 08/12/16 20:47> Assessment and Plan (1) Acute on chronic combined systolic (congestive) and diastolic (congestive) heart failure Status: Acute (2) Mitral regurgitation Status: Chronic (3) Diabetes type 2, uncontrolled Status: Chronic (4) Edema Status: Acute Qualifiers: Edema type: generalized Qualified Code(s): R60.1 - Generalized edema (5) Hypertension Status: Chronic (6) CKD stage 4 due to type 2 diabetes mellitus Status: Chronic (7) Asthma Problem details: Albuterol PRN. Continue home meds. Status: Chronic Cardiology - PN: Subj Interval history: Patient examined and chart reviewed. Agree with assessment and evaluation. No changes are new recommendations. Exam (Progress Note) - Constitutional Vitals: Period Temp Pulse Resp BP Sys/De La Garza Pulse Ox Last 24 Hr 97.5 F-100.5 F 69-85 16-20 124-136/71-82 94-100 Result/EKG - Labs CBC & BMP: 08/11/16 04:18 08/12/16 05:03 Labs: Laboratory Results - last 24 hr 08/11/16 08/12/16 08/12/16 21:24 05:03 07:51 Sodium 140 Potassium 3.7 Chloride 102 Carbon Dioxide 28 Anion Gap 13.7 BUN 42 H Creatinine 2.30 H GFR Calculation 28 BUN/Creatinine Ratio 18.00 Glucose 77 POC Glucose 190 H 140 H Calculated Osmolality 288.4 Calcium 8.3 L 08/12/16 08/12/16 08/12/16 11:30 12:17 12:31 Sodium Potassium Chloride Carbon Dioxide Anion Gap BUN Creatinine GFR Calculation BUN/Creatinine Ratio Glucose POC Glucose 83 39 L* 44 L* Calculated Osmolality Calcium 08/12/16 08/12/16 08/12/16 12:49 13:17 15:56 Sodium Potassium Chloride Carbon Dioxide Anion Gap BUN Creatinine GFR Calculation BUN/Creatinine Ratio Glucose POC Glucose 70 L 123 H 150 H Calculated Osmolality Calcium
--- NOTE | 2016-08-12 14:16 | Discharge Summary ---
<Cholo Weiss - Last Filed: 08/12/16 16:07> Hospital Course - Hospital Course Hospital Course: Ms. Bethea is a 51-year-old black female patient with a history of hypertension , diabetes type 2, dyslipidemia, JENNIFER and chronic kidney disease presenting to the ED on 08/08/16 with complaints of swelling in her abdomen, the feet. Patient also complained of sternal chest pain and a mild cough and shortness of breath. Pt. was just recently hospitalized and discharged a week ago. At discharge patient was prescribed diuretics for which she stated that she had been taking. Labs on arrival showed BUN and creatinine 41/2.30, BNP 1422. the patient was admitted to the hospitalist service for further evaluation and treatment. Discharge Plan - Discharge Data Disposition: Home Health Service - Discharge Medications New Carvedilol [Coreg] 12.5 mg PO DAILY #60 tablet Gabapentin Cap/Tab [Neurontin Cap/Tab] 100 mg PO BID #60 capsule Isosorbide Mononitrate [Imdur] 15 mg PO DAILY #30 tablet Potassium Chloride 10 meq PO DAILY #30 tablet.er Ascorbic Acid Tab [Vitamin C Tab] 1,000 mg PO BID tablet Furosemide Tab [Lasix Tab] 160 mg PO DAILY #60 tablet Continue Ferrous Sulfate 325 mg PO DAILY Insulin Regular [HumuLIN R] See Protocol SUBCUT DAILY metOLazone [Metolazone] 5 mg PO DAILY #30 tablet Insulin Detemir [Levemir] 30 unit SUBCUT QAM #0 bottle Albuterol Inhaler [Proventil Inhaler] 2 puff INH Q4H PRN PRN Reason: Shortness Of Breath/Wheezing Pantoprazole Tab [Protonix Tab] 40 mg PO AC SUPPER hydrALAZINE TAB [Apresoline Tab] 10 mg PO BID #60 tablet Atorvastatin [Lipitor] 20 mg PO DAILY Discontinued Azithromycin [Zithromax] 500 mg PO DAILY #5 tablet Carvedilol [Carvedilol] 6.25 mg PO BID Chlorpheniramine/Phenylephrine [Ed-A-Hist 4 mg-10 mg Tablet] 1 each PO TID PRN PRN Reason: Congestion amLODIPine [Norvasc] 10 mg PO DAILY Furosemide Tab [Lasix Tab] 40 mg PO DAILY #30 tablet Gabapentin 300 mg PO BID #60 capsule Lisinopril [Prinivil] 10 mg PO DAILY - Follow Up or Referral Follow Up: Kel Pereira MD [Physician] - - Forms/Instructions Exam - Constitutional Vitals: Period Temp Pulse Resp BP Sys/[place] Pulse Ox Last 24 Hr 97.6 F-101.3 F 69-87 16-20 124-144/71-82 94-100 Discharge Results Procedures and tests throughout hospitalization: Pending Orders 08/08/16 21:32 Total Protein 12 Hr Urine Routine 08/09/16 09:55 Creatinine 12 Hr Urine Routine Labs on day of discharge: Labs from last 24 hours 08/12/16 08/12/16 08/12/16 15:56 13:17 12:49 Sodium Potassium Chloride Carbon Dioxide Anion Gap BUN Creatinine GFR Calculation BUN/Creatinine Ratio Glucose POC Glucose 150 H 123 H 70 L Calculated Osmolality Calcium 08/12/16 08/12/16 08/12/16 12:31 12:17 11:30 Sodium Potassium Chloride Carbon Dioxide Anion Gap BUN Creatinine GFR Calculation BUN/Creatinine Ratio Glucose POC Glucose 44 L* 39 L* 83 Calculated Osmolality Calcium 08/12/16 08/12/16 08/11/16 07:51 05:03 21:24 Sodium 140 Potassium 3.7 Chloride 102 Carbon Dioxide 28 Anion Gap 13.7 BUN 42 H Creatinine 2.30 H GFR Calculation 28 BUN/Creatinine Ratio 18.00 Glucose 77 POC Glucose 140 H 190 H Calculated Osmolality 288.4 Calcium 8.3 L DS: Provider Date of admission: 08/08/16 20:41 Primary care physician: . No PCP Attending physician on admission: Jones Anderson MD Consults: 08/08/16 21:32 Consult to Physician [CONS] Routine Comment: chest pain Consulting Provider: David Kngiht Consult to Physician [CONS] Routine Comment: edema, chronic kidney disease Consulting Provider: Trung Warren 08/12/16 12:09 Consult to Case Mgmt/Social Srvs [CONS] Routine Reason for Case Mgmt/Social Srvs: Home Health Discharging clinician: Cholo Weiss NP <Caterina Langston - Last Filed: 08/12/16 16:56> Hospital Course - Hospital Course Hospital Course: Ms. Bethea was admitted to the hospital secondary to acute exacerbation of chronic congestive heart failure. Her CHF is combined systolic and diastolic. She has an ejection fraction of 35%. She also has severe mitral regurgitation and some diastolic dysfunction. She has had frequent hospitalizations for edema and anasarca as well as shortness of breath and pulmonary edema. She also has chronic kidney disease and her baseline creatinine is approximately 2.5. She has required significant doses of Lasix as well as Zaroxolyn to maintain her weight and to affect diuresis. She is believed to have nephrotic component to her chronic kidney disease secondary to long-standing hypertension and diabetes. She is followed by Dr. Warren and Dr. Pereira. During the course of this hospitalization she received 120 mg of IV Lasix daily as well as Zaroxolyn 5 mg daily. She had adequate diuretic response and her swelling improved dramatically. 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 She was given new prescriptions for Imdur, as well as Lasix and potassium supplement. She is on hydralazine 10 mg twice daily. Her Coreg was increased from 6.25-12.5 mg daily. She was taken off of the JOSELIN inhibitor due to worsening in her renal function. Her blood pressures have been adequate on the above listed medications. She was set up for home health with [facility]. She received regular education during hospitalization regarding her fluid status daily weights and salt avoidance. Her home medications were reviewed and reconciled. Please see the discharge medication reconciliation sheet for full list of her medications. I have personally seen and examined this patient today. I agree with the above note as prepared by the advanced practice provider. I agree with the assessment and plan. - Time spent with patient Time with patient DS: Greater than 30 minutes (Total discharge time for this patient, including [id number] time, clinical documentation, medication reconciliation, and discharge planning was 39 minutes.) Diagnosis - Discharge Diagnosis (1) CHF (congestive heart failure) Status: Acute (2) Hypertension Status: Chronic (3) Diabetes mellitus Status: Chronic (4) Chronic kidney disease Status: Chronic (5) Cardiomyopathy Status: Chronic (6) Hypertension Status: Chronic (7) Chronic kidney disease Status: Chronic Discharge Plan - Discharge Data Condition at Discharge: Stable Discharge Diet: advance to your usual diet, diabetic diet, heart healthy, low salt diet Activity: resume usual activities as tolerated Hygiene: no restrictions Weight Bearing at Discharge: full weight bearing Contact your physician if you experience:: fever over 101, Difficulty voiding, Redness or swelling, Shortness of breath DS: Provider Expected date of discharge: 08/12/16
[2016-08-12 16:55] VITALS: BP 136/76
--- NOTE | 2016-08-26 14:30 | Emergency Department Note ---
Juice Hawthorne Gwan, am scribing for, and in the presence of, César Rendon M.D. 18:07. Justice Hawthorne Howard T, M.D., personally performed the services described in this documentation, ascribed by David Bose in my presence, and it is both accurate and complete [id number] . Arrival - Arrival ED Nursing Triage Note: PT COMPLAINS OF EXCESSIVE FLUID BUILD UP IN HER STOMACH AND +PEDAL EDEMA, SOB, CP FOR THE PAST WEEK, DISCHARGED THEN TREATED FOR CHF Mode of Arrival: Wheelchair Limitations: No Limitations Source: Patient, Old Records Reviewed, RN Notes Reviewed - History of Present Illness Onset (ago): week(s) Consistency: constant Severity: moderate <César Rendon - Last Filed: 08/08/16 18:09> <Kathy Duff - Last Filed: 08/09/16 05:09> - Arrival Chief Complaint: Shortness of Breath Stated Complaint: High BP,Chest Pain, Fluid on leg - History of Present Illness HPI Narrative: Pt is a 51 y/o female who presents to the ED for further evaluation of generalized edema to abd and bilateral LE with an onset 1 week. Patient confirmed that she is being followed by Dr. Pineda and Dr. Ramey. Her associated sxs have been chest pain. She denies any SOB or that this has ever happened before. No other problems/complaints reported in ED. (David Bose) Pt is a 51 y/o female who presents to the ED for further evaluation of generalized edema to abd and bilateral LE with an onset 1 week. Patient confirmed that she is being followed by Dr. Pineda and Dr. Ramey. Her associated sxs have been chest pain. She denies any SOB or that this has ever happened before. No other problems/complaints reported in ED. (César Rendon) Allergies/Adverse Reactions: Allergies Allergy/AdvReac Type Severity Reaction Status Date / Time morphine Allergy HIVES Verified 08/08/16 17:18 Home Medications: Home Medications Medication Instructions Recorded Confirmed Type Ferrous Sulfate 325 mg PO DAILY 01/30/16 08/08/16 History Insulin Regular [HumuLIN R] See Protocol SUBCUT DAILY 07/14/16 08/08/16 History amLODIPine [Norvasc] 10 mg PO DAILY 07/14/16 08/08/16 History Furosemide Tab [Lasix Tab] 40 mg PO DAILY #30 tablet 07/19/16 08/08/16 Rx hydrALAZINE TAB [Apresoline Tab] 10 mg PO BID #60 tablet 07/19/16 08/08/16 Rx metOLazone [Metolazone] 5 mg PO DAILY #30 tablet 07/19/16 08/08/16 Rx Gabapentin 300 mg PO BID #60 capsule 07/28/16 08/08/16 Rx Insulin Detemir [Levemir] 30 unit SUBCUT QAM #0 bottle 07/28/16 08/08/16 Rx Azithromycin [Zithromax] 500 mg PO DAILY #5 tablet 08/05/16 08/08/16 Rx Albuterol Inhaler [Proventil 2 puff INH Q4H PRN 08/08/16 08/08/16 History Inhaler] Atorvastatin [Lipitor] 20 mg PO DAILY 08/08/16 08/08/16 History Carvedilol [Carvedilol] 6.25 mg PO BID 08/08/16 08/08/16 History Chlorpheniramine/Phenylephrine 1 each PO TID PRN 08/08/16 08/08/16 History [Ed-A-Hist 4 mg-10 mg Tablet] Lisinopril [Prinivil] 10 mg PO DAILY 08/08/16 08/08/16 History Pantoprazole Tab [Protonix Tab] 40 mg PO AC SUPPER 08/08/16 08/08/16 History Review of System - Review of System 12 point system: reviewed and no additional remarkable complaints except as stated - Review of System Respiratory: Present: as per HPI, other (sob) Cardiovascular: Present: as per HPI, chest pain <César Rendon T - Last Filed: 08/08/16 18:09> Medical,Surgical,& Family Hx - Medical History Cardio: History of: CHF (RECENT HOSP.), Hypertension, Valvular Heart Disease ( Mitral regurgitation), Cardiovascular Problems (cardiomegaly) No history of: NC, Pacemaker Psychological: History of: Anxiety Disorders, Schizophrenia (pt states she knows she's schizophrenic) Neurology: No history of: Cerebrovascular Accident, Seizures HEENT: History of: Eye Problem (glasses, cataracts in right eye) Endocrine: History of: Diabetes Mellitus (IDDM), Diabetes Mellitus (NIDDM), Dyslipidemia, Thyroid Disorder No history of: Adrenal Disease Respiratory: History of: Asthma, Bronchitis, COPD, Obstructive Sleep Apnea, Pneumonia Renal: History of: Renal Problems Genitourinary: No history of: Kidney Stones Gastrointestinal: History of: GERD, Hemorrhoids Musculoskeletal: History of: Musculoskeletal Problems (weakness) No history of: Amputation Hematology: History of: Anemia (chronic kidney disease), Blood Transfusion Reaction (pt broke out in rash) - Surgical History Cardiac Surgeries: Sugical HX of: Cardiac Catheterization (Right heart catheterization) HEENT Surgeries: Patient denies: Tonsilectomy & Adenoidectomy Abdominal Surgeries: Patient denies: Appendectomy, Cholecystectomy, Colonoscopy, EGD Reproductive Surgeries: Surgical HX of;: Tubal Ligation - Family History Family History: Reports;: Family Cancer (uncle had prostate and cousin had breast), Family Diabetes (mom, dad, siblings), Family Heart Disease (mom, dad, siblings), Family Hypertension (mom, dad, siblings), Family Stroke (aunt, mom) Denies;: Family Anesthesia Reaction, Family Psychiatric Problems - Social History Smoking Status: Current some day smoker <César Rendon - Last Filed: 08/08/16 18:09> Exam - General General appearance: alert, in no apparent distress - Head Head exam: Present: atraumatic, normocephalic - Eye Eye exam: Present: normal appearance, PERRL, EOMI - ENT ENT exam: Present: normal oropharynx, mucous membranes moist, TM's normal bilaterally, normal external ear exam - Neck Neck exam: Present: full ROM, trachea midline. Absent: tenderness, meningismus - Chest Chest inspection: Present: symmetric chest wall rise. Absent: tenderness - Respiratory Respiratory exam: Present: normal lung sounds bilaterally. Absent: respiratory distress - Cardiovascular Cardiovascular exam: Present: regular rate, normal rhythm, normal heart sounds. Absent: murmur, rubs - Abdominal Exam Abdominal exam: Present: soft, distention, tenderness - Extremities Exam Extremities exam: Present: full ROM, pedal edema - Back Exam Back exam: Present: full ROM. Absent: tenderness - Neurological Exam Neurological exam: Present: alert, oriented X3, CN II-XII intact. Absent: motor sensory deficit - Psychiatric Psychiatric exam: Present: normal affect, normal mood - Skin Skin exam: Present: warm, dry, intact, normal color <César Rendon - Last Filed: 08/08/16 18:09> Vital Signs: Vital Signs Temperature 98.1 F 08/09/16 04:10 Pulse Rate 81 08/09/16 04:10 Respiratory Rate 20 08/09/16 04:10 Blood Pressure 110/64 08/09/16 04:10 O2 Sat by Pulse Oximetry 96 08/09/16 04:10 Course <César Rendon - Last Filed: 08/08/16 18:09> <Kathy Duff - Last Filed: 08/09/16 05:09> Course Narrative: Pt has not responded well to lasix 80mg iv. only urinated once. Still reporting chest pressure and SOB. Will admit for obs and diuresis. (Kathy Duff) - Reevaluation(s) Reevaluation #1: Initial evaluation completed, labs ordered, patient turnover to Dr. Duff. ( César Rendon) Results - Labs CBC & BMP: 08/09/16 03:36 08/09/16 03:36 Lab Results: I have reviewed the patients labs - EKG EKG results: interpreted by ERMD, sinus rhythm, normal ST/T - Diagnostic Findings Procedure: Chest x-ray: report reviewed by me (cardiomegaly, mild pulmonary edema) <Kathy Duff - Last Filed: 08/09/16 05:09> Disposition <César Rendon - Last Filed: 08/08/16 18:09> Case discussed with: patient, other (hospitalist) <Kathy Duff - Last Filed: 08/09/16 05:09> Clinical Impression: Hypertension, Diabetes type 2, uncontrolled, Chronic kidney disease, Acute diastolic (congestive) heart failure, Acute exacerbation of CHF (congestive heart failure) Disposition: Still a Patient Condition: Guarded
== END 2016-08-12 17:57 | disposition home health service (06) | DRG 194 ==
LOC: N.ED 16:43 → SUATTDRO 20:41 → N.EDINP 20:41 → N.TELES 21:09
PROVIDERS: ADMIT Internal Medicine; ATTEND Family Medicine

== ENCOUNTER 2016-09-18 17:01 | Inpatient (IN) ==
[2016-09-18] MEDS ORDERED: SODIUM CHLORIDE 0.9% 1,000 ML IV STA ×2 (17:48→20:11)
[2016-09-18 17:56] LABS: Basophils # 0.1 10*3/uL (0.0-0.2); Basophils % 1.2 % (0.0-0.8); Eosinophils # 0.1 10*3/uL (0.0-0.87); Hematocrit 32.3 VOL% (35.7-47.0); Hemoglobin 10.6 GM/DL (12.0-16.0); Immature Granulocytes % 0.8 %; Immature Granulocytes Absolute 0.04 #; Lymphocytes % 20.1 % (21.3-54.2); Mean Corpuscular HGB Conc 32.8 GM/DL (32-36); Mean Corpuscular Hemoglobin 27 PG (27-34); Monocytes # 0.4 10*3/uL (0.11-0.8); Monocytes % 6.9 % (1.7-12.7); NRBC # 0.02 10*3/uL; Neutrophils # 3.5 10*3/uL (1.4-7.4); Platelet Count 198 T/CUMM (130-400); Red Blood Count 3.94 MC/CUMM (3.8-5.5); Red Cell Distribution Width 16.3 % (9.3-17.3); White Blood Count 5.1 T/CUMM (4-12)
[2016-09-18] MEDS ORDERED: METOPROLOL TARTRATE 5 MG/5 ML VIAL IV STA (18:08)
--- NOTE | 2016-09-18 18:12 | Emergency Department Note ---
Ricky Hawthorne Brittany, am scribing for, and in the presence of, Sherita Mulligan DO 17:44. IIsaak Debra, DO, personally performed the services described in this documentation, ascribed by Valarie García in my presence, and it is both accurate and complete . Arrival - Arrival Chief Complaint: Non-Specific ED Nursing Triage Note: c/o high blood sugar, dizzy, high bp and headadche. acu check per [facility] was 513 Mode of Arrival: Stretcher Limitations: No Limitations Source: Patient, RN Notes Reviewed - History of Present Illness HPI Narrative: Patient is a 51 y/o black female presenting to the ED by EMS for further evaluation of elevated blood pressure and elevated blood glucose levels. Patient states that she began to have a headache yesterday and it has since been persistent. She notes that she has been experiencing some vertigo as well. Patient denies any diaphoresis, chest pain, shortness of breath, abdominal pain , nausea, vomiting, or numbness/paresthesias. Patient states that she has been complaint with Insulin and antihypertensive medications. She has not checked her blood pressure at home today. Accuchek per EMS patient was noted to be hyperglycemic with a level of 513 mmHg. In room patient is hypertensive with a blood pressure reading of 170/110 mmHg. Patient denies recent intake of excess sugary foods. She denies history of hospital admission for episodes of hyperglycemia. Patient has a history significant for Peripheral Neuropathy. She is a patient of Dr. Pineda. She has no other complaint/pain. Onset (ago): day(s) (1) Consistency: constant Severity: moderate Severity scale (1-10): 6 Quality: aching Allergies/Adverse Reactions: Allergies Allergy/AdvReac Type Severity Reaction Status Date / Time morphine Allergy HIVES Verified 08/08/16 17:18 hydrocodone [From [place]] AdvReac Severe HIVES Verified 08/10/16 00:57 Home Medications: Home Medications Medication Instructions Recorded Confirmed Type Ferrous Sulfate 325 mg PO DAILY 01/30/16 09/19/16 History Atorvastatin [Lipitor] 20 mg PO DAILY 08/08/16 09/19/16 History Ascorbic Acid Tab [Vitamin C Tab] 1,000 mg PO BID tablet 08/12/16 09/19/16 Rx Carvedilol [Coreg] 12.5 mg PO DAILY #60 tablet 08/12/16 09/19/16 Rx Albuterol Inhaler [Proventil 2 puff INH Q4H PRN #1 inhaler 09/21/16 Rx Inhaler] Budesonide/Formoterol 160-4.5 2 puff INH BID #1 inhaler 09/21/16 Rx [Symbicort 160-4.5] Carvedilol [Coreg] 12.5 mg PO DAILY #60 tablet 09/21/16 Rx Furosemide Tab [Lasix Tab] 160 mg PO DAILY #60 tablet 09/21/16 Rx Gabapentin Cap/Tab [Neurontin 100 mg PO BID #60 capsule 09/21/16 Rx Cap/Tab] Insulin Detemir [Levemir] 30 unit SUBCUT QAM #100 ml 09/21/16 Rx Isosorbide Mononitrate [Imdur] 15 mg PO DAILY #30 tablet 09/21/16 Rx Pantoprazole Tab [Protonix Tab] 40 mg PO AC SUPPER #30 tablet 09/21/16 Rx Potassium Chloride 10 meq PO DAILY #30 tablet 09/21/16 Rx hydrALAZINE TAB [Apresoline Tab] 10 mg PO BID #60 tablet 09/21/16 Rx Review of System - Review of System 12 point system: reviewed and no additional remarkable complaints except as stated - Review of System Constitutional: Present: other (elevated blood sugar). Absent: chills, diaphoresis, fever Eyes: Absent: vision change Head/Ears/Nose/Throat: Absent: nasal drainage, sore throat Respiratory: Absent: respiratory distress Cardiovascular: Present: other (elevated blood pressure). Absent: chest pain, palpitations Gastrointestinal: Absent: abdominal pain, nausea, vomiting, diarrhea, constipation Genitourinary female: Absent: dysuria, frequency, urgency Musculoskeletal: Absent: arm pain, back pain, leg pain, neck pain Skin: Absent: rash Neurological: Present: headache, vertigo Medical,Surgical,& Family Hx - Medical History Cardio: History of: CHF (RECENT HOSP.), Hypertension, Valvular Heart Disease ( Mitral regurgitation), Cardiovascular Problems (cardiomegaly) No history of: [place], Pacemaker Psychological: History of: Anxiety Disorders, Schizophrenia (pt states she knows she's schizophrenic) Neurology: No history of: Cerebrovascular Accident, Seizures HEENT: History of: Eye Problem (glasses, cataracts in right eye) Endocrine: History of: Diabetes Mellitus (IDDM), Diabetes Mellitus (NIDDM), Dyslipidemia, Thyroid Disorder No history of: Adrenal Disease Respiratory: History of: Asthma, Bronchitis, COPD, Obstructive Sleep Apnea, Pneumonia Renal: History of: Renal Problems Genitourinary: No history of: Kidney Stones Gastrointestinal: History of: GERD, Hemorrhoids Musculoskeletal: History of: Musculoskeletal Problems (weakness) No history of: Amputation Hematology: History of: Anemia (chronic kidney disease), Blood Transfusion Reaction (pt broke out in rash) - Surgical History Cardiac Surgeries: Sugical HX of: Cardiac Catheterization (Right heart catheterization) HEENT Surgeries: Patient denies: Tonsilectomy & Adenoidectomy Abdominal Surgeries: Patient denies: Appendectomy, Cholecystectomy, Colonoscopy, EGD Reproductive Surgeries: Surgical HX of;: Tubal Ligation - Family History Family History: Reports;: Family Cancer (uncle had prostate and cousin had breast), Family Diabetes (mom, dad, siblings), Family Heart Disease (mom, dad, siblings), Family Hypertension (mom, dad, siblings), Family Stroke (aunt, mom) Denies;: Family Anesthesia Reaction, Family Psychiatric Problems - Social History Smoking Status: Current some day smoker Frequency of Alcohol Use: None Type of Drug Use: None Exam Vital Signs: Vital Signs Temperature 97.1 F L 09/21/16 11:46 Pulse Rate 63 09/21/16 11:46 Respiratory Rate 18 09/21/16 11:46 Blood Pressure 141/87 09/21/16 11:46 O2 Sat by Pulse Oximetry 100 09/21/16 11:46 - General General appearance: alert, in no apparent distress - Head Head exam: Present: atraumatic, normocephalic, normal inspection - Eye Eye exam: Present: normal appearance, PERRL, EOMI - ENT ENT exam: Present: mucous membranes dry, TM's normal bilaterally. Absent: mucous membranes moist - Neck Neck exam: Present: normal inspection, full ROM, trachea midline - Chest Chest inspection: Present: normal inspection, symmetric chest wall rise - Respiratory Respiratory exam: Present: normal lung sounds bilaterally - Cardiovascular Cardiovascular exam: Present: regular rate, normal rhythm, normal heart sounds - Abdominal Exam Abdominal exam: Present: soft, normal bowel sounds - Extremities Exam Extremities exam: Present: full ROM, tenderness (lower extremity tenderness to palpation that is chronic secondary to history of peripheral neuropathy) - Back Exam Back exam: Present: normal inspection - Neurological Exam Neurological exam: Present: alert, oriented X3, CN II-XII intact. Absent: motor sensory deficit - Psychiatric Psychiatric exam: Present: normal affect, normal mood - Skin Skin exam: Present: warm, dry Results - Labs CBC & BMP: 09/18/16 17:10 09/21/16 04:04 Lab Results: I have reviewed the patients labs Labs: Laboratory Tests 09/18/16 17:10 WBC 5.1 RBC 3.94 Hgb 10.6 L Hct 32.3 L MCV 82.0 L MPV 14.0 H Lymph % (Auto) 20.1 L Baso % (Auto) 1.2 H Lymph # (Auto) 1.0 L Laboratory Tests 09/18/16 09/18/16 17:10 17:10 b-Hydroxybutyric mmol/L 0.7 H Urine Color Yellow Urine Appearance Cloudy Urine pH 5.0 Ur Specific [place] 1.013 Urine Protein >=500 Urine Glucose (UA) >=500 Urine Ketones Negative Urine Blood Moderate Urine Nitrate Negative Urine Bilirubin Negative Urine Urobilinogen 2.0 H Urine Leukocytes Trace Urine RBC 11 Urine WBC 2 Ur Squamous Epith Cells Few Urine Bacteria Occasional Hyaline Casts 3 Laboratory Tests 09/18/16 17:10 Sodium 127 L Potassium 4.3 Chloride 92 L Carbon Dioxide 22 Anion Gap 17.3 H BUN 59 H Creatinine 2.70 H BUN/Creatinine Ratio 21.00 H Glucose 464 H Total Bilirubin 1.80 H Alkaline Phosphatase 619 H Total Creatine Kinase 104 CK-MB (CK-2) 2.2 Troponin I 0.022 Albumin 2.7 L Globulin 4.8 H Albumin/Globulin Ratio 0.5 L Laboratory Tests 09/18/16 20:35 ABG pH 7.464 H ABG pCO2 28.8 L ABG pO2 62.9 L ABG HCO3 22.5 ABG Total CO2 18.8 L ABG O2 Saturation 91.2 L ABG Base Excess -2.2 FiO2 21.00 Laboratory Tests 09/18/16 20:35 POC Glucose > 500 H* Laboratory Tests 09/18/16 21:51 POC Glucose 406 H - Diagnostic Findings Procedure: Chest x-ray: report reviewed by me (Mild CHF similar to previous exam.) Disposition Clinical Impression: DKA (diabetic ketoacidoses) Disposition: Still a Patient New Prescriptions: Rx's Medication Instructions Recorded Albuterol Inhaler [Proventil 2 puff INH Q4H PRN #1 inhaler 09/21/16 Inhaler] Budesonide/Formoterol 160-4.5 2 puff INH BID #1 inhaler 09/21/16 [Symbicort 160-4.5] Carvedilol [Coreg] 12.5 mg PO DAILY #60 tablet 09/21/16 Furosemide Tab [Lasix Tab] 160 mg PO DAILY #60 tablet 09/21/16 Gabapentin Cap/Tab [Neurontin 100 mg PO BID #60 capsule 09/21/16 Cap/Tab] Insulin Detemir [Levemir] 30 unit SUBCUT QAM #100 ml 09/21/16 Isosorbide Mononitrate [Imdur] 15 mg PO DAILY #30 tablet 09/21/16 Pantoprazole Tab [Protonix Tab] 40 mg PO AC SUPPER #30 tablet 09/21/16 Potassium Chloride 10 meq PO DAILY #30 tablet 09/21/16 hydrALAZINE TAB [Apresoline Tab] 10 mg PO BID #60 tablet 09/21/16
[2016-09-18 18:29] LABS: Apearance,Urine CLOUDY (Clear); Bacteria,Urine Occasional /HPF (Few); Bilirubin,Urine Negative (Negative); Blood, Urine Moderate mg/dL (Negative); Glucose,Urine (UA) >=500 mg/dL (Negative); Hyaline Casts,Urine 3 /LPF (0-3); Ketones,Urine Negative (Negative); Nitrite,Urine Negative (Negative); Protein,Urine >=500 MG/DL; RBC,Urine 11 /HPF (0-4); Squamous Epithelial Cell,Urine Few /HPF (0-10); Urine Color Yellow (Yellow); Urine Specific Gravity 1.013 (1.001-1.035); WBC,Urine 2 /HPF (0-6)
[2016-09-18] MEDS ORDERED: METOPROLOL TARTRATE 5 MG/5 ML VIAL IV ONE (18:29)
--- NOTE | 2016-09-18 18:30 | XRay Report ---
XR chest 1V portable Indication: Abnormal breath sounds. Chest one view: Comparison 08/08/2016. Cardiomegaly is again noted. Mediastinal contour remains unremarkable. There is continued interstitial prominence of both lung [place], and minimal central pulmonary vascular congestion. No focal pneumonia shown. Impression: Mild CHF, similar to the previous exam. PROCEDURE INTERPRETED AT [facility] DEPARTMENT OF RADIOLOGY Final Report Signed by: Chan Zeng M.D.
[2016-09-18 19:03] LABS: Alanine Aminotransferase 40 U/L (13-56); Albumin 2.7 G/DL (3.4-5.0); Alkaline Phosphatase 619 U/L (45-117); Aspartate Amino Transferase 35 U/L (0-37); Blood Urea Nitrogen 59 MG/DL (7-18); Calcium 8.8 MG/DL (8.5-10.1); Glucose 464 MG/DL (74-106); Osmolality,Calculated 291.2 MOS/KG (273-304); Potassium 4.3 MMOL/L (3.5-5.1); Sodium 127 MMOL/L (136-145); Total Protein 7.5 G/DL (6.4-8.3); Troponin I Only 0.022 NG/ML (0.00-0.045)
[2016-09-18] MEDS ORDERED: INSULIN REGULAR 100 UNIT/ML IV STA (20:10)
[2016-09-18] MEDS ORDERED: INSULIN REGULAR 100 UNIT/ML ONE (20:24)
[2016-09-18 20:35] LABS: ABG Base Excess -2.2 MMOL/L (-2.5-2.5); ABG HCO3 22.5 MMOL/L (20-26); ABG Oxygen Saturation 91.2 % (95-100); ABG PCO2 28.8 MM HG (35-48); ABG PH 7.464 (7.35-7.45); ABG PO2 62.9 MM HG (80-95); ABG TCO2 18.8 MMOL/L (23-27); Allen Test Positive; Pt O2 Delivery Device Room Air
[2016-09-18] MEDS ORDERED: INSULIN REGULAR DRIP 100 ML IV SCH (21:30)
[2016-09-18] MEDS ORDERED: ONDANSETRON 4 MG/2 ML VIAL IV STA (22:04)
[2016-09-18] MEDS ORDERED: HYDROmorphone 2 MG/1 ML VIAL IV STA (22:04)
[2016-09-18] MEDS ORDERED: ONDANSETRON 4 MG/2 ML VIAL ONE (22:07)
[2016-09-18] MEDS ORDERED: HYDROmorphone 2 MG/1 ML VIAL ONE (22:09)
--- NOTE | 2016-09-18 23:28 | Hospitalist History & Physical ---
Assessment and Plan (1) Respiratory alkalosis Status: Acute Assessment and plan: This is secondary to hyperventilation as a result of DKA. It should correct as we correct the acidemia Current Visit: Yes (2) Metabolic alkalosis Status: Acute Assessment and plan: Reexpand the patient's volume with normal saline that should collect the metabolic alkalosis. Try to be gingerly with furosemide. Patient also has renal insufficiency a creatinine of 2.7 chronicity of which is unclear to me. As of intrinsic kidney disease or it may be prerenal azotemia. Current Visit: Yes (3) Hyperglycemia Status: Acute Assessment and plan: Patient misses her insulin doses. Correct with insulin treatment that she is getting now Current Visit: Yes (4) Pulmonary edema Status: Acute Current Visit: Yes (5) DKA (diabetic ketoacidoses) Status: Acute Assessment and plan: Patient is a type I diabetic with insulin deficiency. Her missing the doses of insulin as cause these. My suspicion that is noncompliance with this patient though she did not acknowledge it at the bedside as we are discussing management of her diabetes. Patient will be put on insulin drip in the intensive care unit monitor the anion gap monitor the electrolytes monitor fluid intake and output. Should the blood sugar dropped into the 200s we will change the IV fluids to D5 normal saline. Monitor urine output. Current Visit: No (6) Hypertension Problem details: Continue home meds Status: Chronic Assessment and plan: Resume home medication. Current Visit: No Qualifiers: Hypertension type: essential hypertension Qualified Code(s): I10 - Essential (primary) hypertension History of Present Illness Chief complaint: Dizziness fatigue blood sugars very high History of present illness: Ms. Bethea is a 51 year old female presenting to the ED by EMS for further evaluation of elevated blood pressure and elevated blood glucose levels. Patient states that she began to have a headache yesterday and it has since been persistent. She notes that she has been experiencing some vertigo as well. Patient denies any diaphoresis, chest pain, shortness of breath, abdominal pain , nausea, vomiting, or numbness/paresthesias. Patient states that she has been complaint with Insulin and antihypertensive medications. She has not checked her blood pressure at home today. Accuchek per EMS patient was noted to be hyperglycemic with a level of 513 mmHg. In room patient is hypertensive with a blood pressure reading of 170/110 mmHg. Patient denies recent intake of excess sugary foods. She denies history of hospital admission for episodes of hyperglycemia. Patient has a history significant for Peripheral Neuropathy. She is a patient of Dr. Pineda. Patient claims that her insulin was taken by her sister and she never a chance to go and pick it up. She claims she only missed one dose yesterday morning but she not certain if there was enough taken last night. Denies rigors of fevers she denies any chest pain she has no focal neurologic deficits. Home Medications Medication Instructions Recorded Confirmed Type Ferrous Sulfate 325 mg PO DAILY 01/30/16 08/08/16 History Insulin Regular [HumuLIN R] See Protocol SUBCUT DAILY 07/14/16 08/08/16 History hydrALAZINE TAB [Apresoline Tab] 10 mg PO BID #60 tablet 07/19/16 08/08/16 Rx metOLazone [Metolazone] 5 mg PO DAILY #30 tablet 07/19/16 08/08/16 Rx Insulin Detemir [Levemir] 30 unit SUBCUT QAM #0 bottle 07/28/16 08/08/16 Rx Albuterol Inhaler [Proventil 2 puff INH Q4H PRN 08/08/16 08/08/16 History Inhaler] Atorvastatin [Lipitor] 20 mg PO DAILY 08/08/16 08/08/16 History Pantoprazole Tab [Protonix Tab] 40 mg PO AC SUPPER 08/08/16 08/08/16 History Ascorbic Acid Tab [Vitamin C Tab] 1,000 mg PO BID tablet 08/12/16 Rx Carvedilol [Coreg] 12.5 mg PO DAILY #60 tablet 08/12/16 Rx Furosemide Tab [Lasix Tab] 160 mg PO DAILY #60 tablet 08/12/16 Rx Gabapentin Cap/Tab [Neurontin 100 mg PO BID #60 capsule 08/12/16 Rx Cap/Tab] Isosorbide Mononitrate [Imdur] 15 mg PO DAILY #30 tablet 08/12/16 Rx Potassium Chloride 10 meq PO DAILY #30 tablet.er 08/12/16 Rx Allergies Allergy/AdvReac Type Severity Reaction Status Date / Time morphine Allergy HIVES Verified 08/08/16 17:18 hydrocodone [From [place]] AdvReac Severe HIVES Verified 08/10/16 00:57 Medical,Surgical,& Family Hx - Medical History Cardio: History of: CHF (RECENT HOSP.), Hypertension, Valvular Heart Disease ( Mitral regurgitation), Cardiovascular Problems (cardiomegaly) No history of: [place], Pacemaker Psychological: History of: Anxiety Disorders, Schizophrenia (pt states she knows she's schizophrenic) Neurology: No history of: Cerebrovascular Accident, Seizures HEENT: History of: Eye Problem (glasses, cataracts in right eye) Endocrine: History of: Diabetes Mellitus (IDDM), Diabetes Mellitus (NIDDM), Dyslipidemia, Thyroid Disorder No history of: Adrenal Disease Respiratory: History of: Asthma, Bronchitis, COPD, Obstructive Sleep Apnea, Pneumonia Renal: History of: Renal Problems Genitourinary: No history of: Kidney Stones Gastrointestinal: History of: GERD, Hemorrhoids Musculoskeletal: History of: Musculoskeletal Problems (weakness) No history of: Amputation Hematology: History of: Anemia (chronic kidney disease), Blood Transfusion Reaction (pt broke out in rash) - Surgical History Cardiac Surgeries: Sugical HX of: Cardiac Catheterization (Right heart catheterization) HEENT Surgeries: Patient denies: Tonsilectomy & Adenoidectomy Abdominal Surgeries: Patient denies: Appendectomy, Cholecystectomy, Colonoscopy, EGD Reproductive Surgeries: Surgical HX of;: Tubal Ligation - Family History Family History: Reports;: Family Cancer (uncle had prostate and cousin had breast), Family Diabetes (mom, dad, siblings), Family Heart Disease (mom, dad, siblings), Family Hypertension (mom, dad, siblings), Family Stroke (aunt, mom) Denies;: Family Anesthesia Reaction, Family Psychiatric Problems - Social History Smoking Status: Current some day smoker Frequency of Alcohol Use: None Type of Drug Use: None Review of systems: 12 point system assessment was attempted. Patient is not a very good historian. She is complaining of pain in the legs because she knows she has neuropathy. Distal legs also rather cool to touch. She looks fatigued and with generalized malaise she is able to answer questions the rest of the 12 point assessment apart from the chief complaint history of presenting illness and past medical history is noncontributory Exam - Constitutional Vitals: Period Temp Pulse Resp BP Sys/De La Garza Pulse Ox Last 24 Hr 97.8 F-98.1 F 80-84 16-20 135-173/86-110 94-98 General appearance: over weight - Head Head exam: Present: normocephalic, atraumatic - Eye Eye exam: Present: EOMI Pupils: Present: KAUSHIK - ENT ENT exam: Present: normal exam, normal oropharynx - Neck Neck exam: Present: other (Supple neck no JVD no bruits no stridor no thyromegaly) - Respiratory Respiratory exam: Present: clear to auscultation bilaterally, other (Fine rales at the base patient has had 2 L of normal saline fast infusion) - Cardiovascular Cardiovascular exam: Present: regular rate and rhythm - GI/Abdominal GI/Abdominal exam: Present: normal bowel sounds, soft - Extremities Exam Extremities exam: Present: full ROM - Back Exam Back exam: Present: normal inspection - Neurological Exam Neurological exam: Present: alert, oriented X3, CN II-XII intact - Psychiatric Psychiatric exam: Present: normal mood, other (Subdued affect with asthenia and fatigue) - Skin Skin exam: Present: normal color, dry, other (Cool to touch in distal leg) Results - Labs CBC & BMP: 09/18/16 17:10 09/18/16 17:10 Lab Results: I have reviewed the past 24 hour labs (Noted the patient with chronic anemia Modestly low MCV at 82 normal platelet count. She has hypoglycemia and hyponatremia calculated osmolality of 291.2 she does have an elevated alkaline phosphatase of 609 AST and ALT are normal she does have glucosuria as expected. Of interest is blood gas obtained which shows a pH of 7.464 (alkalemia) PCO2 of 28.8 PO2 of 62.9 suggesting combination of metabolic acidosis as entailed by an anion gap of 17.3 respiratory alkalosis with low PCO2 suggesting hyperventilation most likely to compensate for the acidosis and metabolic alkalosis most likely secondary to intravascular volume depletion secondary to either osmotic diuresis plus the use of Lasix that the patient does use at home.)
[2016-09-18] MEDS ORDERED: SODIUM CHLORIDE 0.9% 1,000 ML IV SCH (23:30)
[2016-09-19] MEDS ORDERED: DEXTROSE 5% NACL 0.9% 1,000 ML IV SCH (02:30)
[2016-09-19 02:49] LABS: Calcium 8.1 MG/DL (8.5-10.1); Magnesium 1.7 MG/DL (1.8-2.4); Osmolality,Calculated 290.1 MOS/KG (273-304); Phosphorous 3.6 MG/DL (2.5-4.9); Potassium 3.7 MMOL/L (3.5-5.1)
[2016-09-19] MEDS ORDERED: DEXTROSE 50% 25 GM/50 ML VIAL IV ONE (05:19)
[2016-09-19] MEDS: ENOXAPARIN 30 MG/0.3 ML SYRINGE SUBCUT SCH (05:34)
--- NOTE | 2016-09-19 08:16 | EKG Report ---
Stationary ECG Study 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
[2016-09-19] MEDS ORDERED: ALBUTEROL 2.5 MG/3 ML NEB RESP TX PRN (08:18)
[2016-09-19] MEDS ORDERED: GLUCAGON 1 MG VIAL IM PRN ×2 (08:21)
[2016-09-19] MEDS ORDERED: DEXTROSE 50% 25 GM/50 ML VIAL IV PRN ×2 (08:21)
[2016-09-19] MEDS ORDERED: SODIUM CHLORIDE 0.9% 1,000 ML IV SCH (08:30)
--- NOTE | 2016-09-19 08:48 | Hospitalist Progress Note ---
Assessment and Plan (1) Hyperglycemia Status: Acute Assessment and plan: The patient does not appear to have diabetic ketoacidosis. Her anion gap is closed and her CO2 was never low. Her pH is normal. Her blood sugars are better controlled now. Will resume Lantus 30 units subcu daily and start sliding scale before meals and at bedtime with low-dose NovoLog coverage. Current Visit: Yes (2) Severe mitral regurgitation Status: Chronic Current Visit: Yes (3) Acute on chronic combined systolic (congestive) and diastolic (congestive) heart failure Status: Acute Assessment and plan: The patient's x-ray shows continued congestive heart failure and pulmonary edema. She has no respiratory distress. Current Visit: No (4) Chronic kidney disease Status: Chronic Current Visit: No Qualifiers: Chronic kidney disease stage: stage 3 (moderate) Qualified Code(s): N18.3 - Chronic kidney disease, stage 3 (moderate) (5) Cardiomyopathy Status: Chronic Current Visit: No (6) Hypertension Status: Acute Current Visit: No Qualifiers: Hypertension type: essential hypertension Qualified Code(s): I10 - Essential (primary) hypertension (7) Noncompliance Status: Chronic Current Visit: No (8) Respiratory alkalosis Status: Resolved Current Visit: Yes Hospitalist: Subjective Interval history: 51 y/oBF with a hx of CHF with EF 35-40% and Severe mitral regurgitation and moderately severe tricuspid regurgitation was admitted to ICU overnight with hyperglycemia and respiratory alkalosis. The patient was noted to have uncontrolled blood sugars and an elevated blood pressure with headache. She has also been noncompliant with her insulin therapy. She is admitted to the intensive care unit and started on insulin drip and IV fluids. Her labs this morning have improved. Anion gap has closed and serum CO2 is normal. Will start diabetic diet with sliding scale insulin and Accu-Cheks and continue gentle hydration. Home medications were reviewed and reconciled. Exam - Constitutional Vitals: Period Temp Pulse Resp BP Sys/De La Garza Pulse Ox Last 24 Hr 97.1 F-98.4 F 57-84 12-21 104-173/72-110 94-100 Exam: Constitutional System: No distress. No tremulousness. Head: Normocephalic, atraumatic. Ears, Nose and Throat System: No pain or tenderness. No epistaxis or discharge Eyes System: Pupils equal, round, and reactive. Extraocular muscles intact. Neck: Supple, without adenopathy, No jugular venous distention. No thyromegaly, neck mass, or prior surgery apparent. Respiratory System: Chest clear to auscultation. Cardiovascular System: Heart with regular rate and rhythm. Mitral regurg murmur noted GI System: Abdomen soft, nontender. Normo active bowel sounds present. Musculoskeletal System: limbs with no pedal edema. Full distal pulses. Neurological System: No discernable sensory deficit. No aphasia Psychiatric System: Conversation is rational Results - Labs CBC & BMP: 09/18/16 17:10 09/19/16 02:12 Lab Results: I have reviewed the past 24 hour labs - Diagnostic Findings Procedure: Chest x-ray: image reviewed by me, report reviewed by me
[2016-09-19] MEDS: INSULIN GLARGINE 100 UNIT/ML SUBCUT SCH (09:26)
[2016-09-19] MEDS: ASCORBIC ACID 500 MG TABLET PO SCH ×2 (09:27→20:08)
[2016-09-19] MEDS: ISOSORBIDE MONONITRATE 30 MG TABLET PO SCH (09:27)
[2016-09-19] MEDS: POTASSIUM CHLORIDE 10 MEQ TABLET PO SCH (09:28)
[2016-09-19] MEDS: hydrALAZINE 10 MG TABLET PO SCH ×2 (09:28→20:08)
[2016-09-19] MEDS: GABAPENTIN 100 MG CAPSULE PO SCH ×2 (09:28→20:08)
[2016-09-19] MEDS: ACETAMINOPHEN 500 MG TABLET PO PRN ×3 (09:29→21:21)
[2016-09-19] MEDS: FUROSEMIDE 80 MG TABLET PO SCH (09:29)
[2016-09-19] MEDS: CARVEDILOL 12.5 MG TABLET PO SCH (09:30)
[2016-09-19] MEDS: ATORVASTATIN 20 MG TABLET PO SCH (09:30)
[2016-09-19] MEDS: FERROUS SULFATE 325 MG TABLET PO SCH (09:30)
[2016-09-19] MEDS: INSULIN REGULAR 100 UNIT/ML SUBCUT SCH ×3 (12:48→21:20)
[2016-09-19] MEDS: SODIUM CHLORIDE 0.9% 1,000 ML IV SCH (16:27)
[2016-09-19] MEDS: PANTOPRAZOLE 40 MG TABLET PO SCH (16:31)
[2016-09-20] MEDS: SODIUM CHLORIDE 0.9% 1,000 ML IV SCH ×2 (02:15→22:36)
[2016-09-20 05:40] LABS: Albumin 2.3 G/DL (3.4-5.0); Bilirubin,Total 0.8 MG/DL (0.2-1.0); Calcium 8.3 MG/DL (8.5-10.1); Osmolality,Calculated 294.7 MOS/KG (273-304); Potassium 4.3 MMOL/L (3.5-5.1); Total Protein 6.4 G/DL (6.4-8.3)
[2016-09-20] MEDS: ENOXAPARIN 30 MG/0.3 ML SYRINGE SUBCUT SCH (06:01)
[2016-09-20] MEDS: ISOSORBIDE MONONITRATE 30 MG TABLET PO SCH (08:35)
[2016-09-20] MEDS: ATORVASTATIN 20 MG TABLET PO SCH (08:36)
[2016-09-20] MEDS: FERROUS SULFATE 325 MG TABLET PO SCH (08:36)
[2016-09-20] MEDS: CARVEDILOL 12.5 MG TABLET PO SCH (08:36)
[2016-09-20] MEDS: hydrALAZINE 10 MG TABLET PO SCH ×2 (08:36→20:22)
[2016-09-20] MEDS: ASCORBIC ACID 500 MG TABLET PO SCH ×2 (08:36→20:22)
[2016-09-20] MEDS: FUROSEMIDE 80 MG TABLET PO SCH (08:37)
[2016-09-20] MEDS: INSULIN GLARGINE 100 UNIT/ML SUBCUT SCH (08:37)
[2016-09-20] MEDS: GABAPENTIN 100 MG CAPSULE PO SCH ×2 (08:37→20:22)
[2016-09-20] MEDS: POTASSIUM CHLORIDE 10 MEQ TABLET PO SCH (08:37)
[2016-09-20] MEDS: INSULIN REGULAR 100 UNIT/ML SUBCUT SCH ×4 (08:48→21:50)
--- NOTE | 2016-09-20 11:30 | Hospitalist Progress Note ---
Assessment and Plan (1) Acute on chronic combined systolic (congestive) and diastolic (congestive) heart failure Status: Acute Assessment and plan: 1)severe MR and TR, EF 35-40% and some diastolic dysfunction on echo in 06/19. Breathing comfortable now, CXR now with mild CHF, cardiomegaly. Continue her maintenance meds. She says she takes her meds correctly at home and does not have trouble getting them. stop IVF as AG closed. 2)hyperglycemia- resolved 3)elevated bilirubin and alk phos- gallstones on recent CT abd several months ago. Check US. 4)resp alkalosis- unclear etiology. check UDS. Current Visit: No (2) Diabetes mellitus Status: Chronic Current Visit: No Qualifiers: Diabetes mellitus type: type 2 Diabetes mellitus complication detail: with chronic kidney disease Diabetes mellitus [facility] insulin use: with [facility] use Chronic kidney disease stage: stage 4 (severe) (3) Lower extremity edema Status: Resolved Current Visit: No (4) Chronic kidney disease Problem details: Creatinine improved to 2.8. Status: Chronic Current Visit : No Qualifiers: Chronic kidney disease stage: stage 3 (moderate) Qualified Code(s): N18.3 - Chronic kidney disease, stage 3 (moderate) (5) Mitral regurgitation Status: Chronic Current Visit: No (6) Hyperbilirubinemia Status: Acute Current Visit: No (7) Elevated liver enzymes Problem details: Adding a statin which she needs, but Pravastatin which may not affect liver enzymes. Liver enzymes will need to be monitored. Status: Chronic Current Visit: No (8) Cardiomyopathy Status: Chronic Current Visit: No (9) Noncompliance Status: Chronic Current Visit: No (10) Respiratory alkalosis Status: Resolved Current Visit: Yes (11) Severe mitral regurgitation Status: Chronic Current Visit: Yes Hospitalist: Subjective Interval history: Mrs Bethea is doing ok this morning. She denies shortness of breath. She doesn' t know what happened to make her sick on admission. She is eating ok. Exam - Constitutional Vitals: Period Temp Pulse Resp BP Sys/De La Garza Pulse Ox Last 24 Hr 96.7 F-98.5 F 59-66 11-20 115-138/74-99 94-100 General appearance: no acute distress, over weight - Head Head exam: Present: normocephalic, atraumatic - Eye Eye exam: Present: EOMI. Absent: scleral icterus - Respiratory Respiratory exam: Present: clear to auscultation bilaterally - Cardiovascular Cardiovascular exam: Present: regular rate and rhythm, systolic murmur - GI/Abdominal GI/Abdominal exam: Present: normal bowel sounds, soft. Absent: tenderness - Extremities Exam Extremities exam: Present: edema - Neurological Exam Neurological exam: Present: alert, oriented X3 Results - Labs CBC & BMP: 09/18/16 17:10 09/20/16 04:07 Lab Results: I have reviewed the past 24 hour labs
[2016-09-20] MEDS: PANTOPRAZOLE 40 MG TABLET PO SCH (16:55)
[2016-09-21] MEDS: ACETAMINOPHEN 500 MG TABLET PO PRN (01:23)
[2016-09-21 05:06] LABS: Albumin 2.4 G/DL (3.4-5.0); Bilirubin,Total 0.8 MG/DL (0.2-1.0); Calcium 8.4 MG/DL (8.5-10.1); Osmolality,Calculated 294.7 MOS/KG (273-304); Potassium 4.1 MMOL/L (3.5-5.1); Total Protein 6.6 G/DL (6.4-8.3)
[2016-09-21] MEDS: ENOXAPARIN 30 MG/0.3 ML SYRINGE SUBCUT SCH (06:05)
--- NOTE | 2016-09-21 08:10 | Ultrasound Report ---
Exam: US right upper quadrant Date: 09/21/2016 11:23 AM Comparison: 07/05/2015 Indication: Elevated liver function tests Technique:[Multiple transabdominal real-time scans were obtained of the right upper quadrant.] Findings: No gallstones are identified. The wall of the gallbladder measures 3.8 mm with possible minimal pericholecystic fluid. CBD measures 6.1 mm compared to 5 mm on previous exam. The liver is normal in size with possible fatty infiltration. Right kidney measures 108 mm in length no mass or hydronephrosis. The visualized pancreas and aorta have an unremarkable appearance with color flow documented in the IVC. The aortic bifurcation is obscured by bowel gas. Impression: No gallstones are identified. The wall of the gallbladder appears minimally thickened with equivocal minimal pericholecystic fluid. Biliary scan with ejection fraction may be helpful for further evaluation. Also CBD is borderline in size measuring 6.1 mm. The distal duct and pancreas are obscured by bowel gas. PROCEDURE INTERPRETED AT [facility] DEPARTMENT OF RADIOLOGY Final Report Signed by: Dr. Angella Ferrer
[2016-09-21] MEDS: GABAPENTIN 100 MG CAPSULE PO SCH (08:49)
[2016-09-21] MEDS: ASCORBIC ACID 500 MG TABLET PO SCH (08:49)
[2016-09-21] MEDS: ATORVASTATIN 20 MG TABLET PO SCH (08:50)
[2016-09-21] MEDS: FUROSEMIDE 80 MG TABLET PO SCH (08:50)
[2016-09-21] MEDS: ISOSORBIDE MONONITRATE 30 MG TABLET PO SCH (08:50)
[2016-09-21] MEDS: POTASSIUM CHLORIDE 10 MEQ TABLET PO SCH (08:50)
[2016-09-21] MEDS: FERROUS SULFATE 325 MG TABLET PO SCH (08:50)
[2016-09-21] MEDS: CARVEDILOL 12.5 MG TABLET PO SCH (08:50)
[2016-09-21] MEDS: hydrALAZINE 10 MG TABLET PO SCH (08:50)
[2016-09-21] MEDS: INSULIN GLARGINE 100 UNIT/ML SUBCUT SCH ×2 (08:50→08:55)
[2016-09-21] MEDS: INSULIN REGULAR 100 UNIT/ML SUBCUT SCH ×2 (08:54→11:54)
--- NOTE | 2016-09-21 10:53 | Discharge Summary ---
Hospital Course - Hospital Course Hospital Course: 51-year-old -[place] female who presented for complaints of headaches. She was noted to have elevated blood pressure on admission of 173/110. Patient was noted to have a glucose on admission of 464. Patient was severely dehydrated with a sodium of 127 and her beta hydroxybutyrate was elevated 0.7 despite a normal CO2 with a gap of 13. She was diagnoses with DKA but seems more hyperosmolar. She was hydrated with normal saline and placed on insulin drip. Her sodium has returned to normal. She was moved out of the ICU and has been stable on the floor. She was noted to have a mild elevation in her total bilirubin and her AST. Gallbladder ultrasound shows no stones but she has thickening around the gallbladder wall and lorri-cholecystic fluid. Patient is mildly tender on exam but does not complain of chronic pain. She will be discharged home today with an outpatient HIDA scan with follow-up with Dr. Hester. Patient's primary care doctor is Dr. Pineda in 2 weeks. - Time spent with patient Time with patient DS: Greater than 30 minutes (40 min) Discharge Plan - Discharge Data Disposition: Disch To Home/Self Care Condition at Discharge: Stable Discharge Diet: diabetic diet Activity: resume usual activities as tolerated Hygiene: no restrictions Weight Bearing at Discharge: full weight bearing - Discharge Medications New Carvedilol [Coreg] 12.5 mg PO DAILY #60 tablet Budesonide/Formoterol 160-4.5 [Symbicort 160-4.5] 2 puff INH BID #1 inhaler Continue Ferrous Sulfate 325 mg PO DAILY Carvedilol [Coreg] 12.5 mg PO DAILY #60 tablet Albuterol Inhaler [Proventil Inhaler] 2 puff INH Q4H PRN #1 inhaler PRN Reason: Shortness Of Breath/Wheezing Gabapentin Cap/Tab [Neurontin Cap/Tab] 100 mg PO BID #60 capsule hydrALAZINE TAB [Apresoline Tab] 10 mg PO BID #60 tablet Insulin Detemir [Levemir] 30 unit SUBCUT QAM #100 ml Pantoprazole Tab [Protonix Tab] 40 mg PO AC SUPPER #30 tablet Potassium Chloride 10 meq PO DAILY #30 tablet Atorvastatin [Lipitor] 20 mg PO DAILY Ascorbic Acid Tab [Vitamin C Tab] 1,000 mg PO BID tablet Furosemide Tab [Lasix Tab] 160 mg PO DAILY #60 tablet Isosorbide Mononitrate [Imdur] 15 mg PO DAILY #30 tablet Discontinued Insulin Regular [HumuLIN R] See Protocol SUBCUT DAILY metOLazone [Metolazone] 10 mg PO DAILY - Follow Up or Referral Follow Up: Gerry Pineda MD [Physician] - Goyo Hester MD [Physician] - - Forms/Instructions Additional Discharge Instructions: outpatient hida scan regarding gallbladder function Exam - Constitutional Vitals: Period Temp Pulse Resp BP Sys/De La Garza Pulse Ox Last 24 Hr 96.1 F-98.2 F 63-71 16-18 113-157/70-95 93-100 General appearance: normal weight, no acute distress - Respiratory Respiratory exam: Present: clear to auscultation bilaterally. Absent: rhonchi, wheezes - Cardiovascular Cardiovascular exam: Present: regular rate and rhythm. Absent: systolic murmur - GI/Abdominal GI/Abdominal exam: Present: normal bowel sounds, tenderness (mild tenderness ), soft - Extremities Exam Extremities exam: Present: normal inspection, normal capillary refill Discharge Results Procedures and tests throughout hospitalization: Pending Orders 09/18/16 23:46 Blood Culture Stat 09/22/16 04:00 CBC [Comp Blood Count Auto Diff] IN AM Labs on day of discharge: Labs from last 24 hours 09/21/16 09/21/16 09/21/16 07:11 04:04 03:19 Sodium 138 Potassium 4.1 Chloride 106 Carbon Dioxide 22 Anion Gap 14.1 BUN 67 H Creatinine 2.70 H GFR Calculation 24 BUN/Creatinine Ratio 24.00 H Glucose 111 H POC Glucose 76 63 L Calculated Osmolality 294.7 Calcium 8.4 L Total Bilirubin 0.80 AST 41 H ALT 35 Alkaline Phosphatase 634 H Total Protein 6.6 Albumin 2.4 L Globulin 4.2 H Albumin/Globulin Ratio 0.5 L 09/20/16 09/20/16 09/20/16 21:34 16:16 11:33 Sodium Potassium Chloride Carbon Dioxide Anion Gap BUN Creatinine GFR Calculation BUN/Creatinine Ratio Glucose POC Glucose 214 H 241 H 205 H Calculated Osmolality Calcium Total Bilirubin AST ALT Alkaline Phosphatase Total Protein Albumin Globulin Albumin/Globulin Ratio Preliminary micro results at discharge 09/18/16 23:46 Blood Culture - Preliminary Blood No growth at 1 day 09/18/16 23:46 Blood Culture - Preliminary Blood No growth at 1 day DS: Provider Date of admission: 09/18/16 23:19 Primary care physician: . No PCP Attending physician on admission: Josh Cutler MD Consults: 09/21/16 09:00 Consult to Sleep Center [CONS] Routine Reason for Sleep Center: Other Consult Comment: Sleep apnea score of 4 Discharging clinician: Shannon Ellison MD
[2016-09-21] MEDS ORDERED: FUROSEMIDE 40 MG/4 ML VIAL IV ONE (11:13)
[2016-09-21] MEDS ORDERED: metOLazone 5 MG TABLET PO SCH (11:30)
[2016-09-21 11:47] VITALS: BP 141/87
--- NOTE | 2016-09-21 12:54 | Sleep Medicine Progress Note ---
Sleep Medicine Subjective Interval history: I stop by to check on patient prior to discharge. She has a history of obstructive sleep apnea and is a regular patient in sleep clinic. She does have a history of severe sleep apnea diagnosed with an AHI 43.2. She was prescribed CPAP at 10 cm on 09/10/2015 and on follow-up on 01/08/2016, had excellent compliance at 83%. She is being discharged today and will continue follow-up in the sleep clinic. Exam (Progress Note) - Constitutional Vitals: Period Temp Pulse Resp BP Sys/De La Garza Pulse Ox Last 24 Hr 96.1 F-98.2 F 63-71 16-18 113-157/77-95 93-100 Results - Labs CBC & BMP: 09/18/16 17:10 09/21/16 04:04 Specialty Discharge - Follow Up or Referrals Follow up with: Gerry Pineda MD [Physician] - Goyo Hester MD [Physician] - Trung Warren MD [Physician] - 2 Weeks
[2016-09-21] MEDS ORDERED: INSULIN GLARGINE 100 UNIT/ML SUBCUT SCH (21:00)
== END 2016-09-21 15:19 | disposition home or self-care (01) | DRG 420 ==
LOC: EDBD → EDUNIT# → N.ED 17:01 → SUATTDRO 23:19 → N.EDINP 23:19 → N.ICU 23:54 → N.TELEN 09-19 17:10
PROVIDERS: ADMIT Internal Medicine Infectious Disease; ATTEND Internal Medicine

== ENCOUNTER 2017-01-06 15:43 | Inpatient (IN) ==
[2017-01-06] MEDS ORDERED: ASPIRIN 325 MG TABLET PO STA (17:01)
[2017-01-06] MEDS ORDERED: ONDANSETRON 4 MG/2 ML VIAL IV STA (17:01)
[2017-01-06] MEDS ORDERED: FUROSEMIDE 100 MG/10 ML VIAL IV STA (17:01)
[2017-01-06] MEDS ORDERED: hydrALAZINE 20 MG/1 ML VIAL IV STA (17:01)
[2017-01-06] MEDS ORDERED: NITROGLYCERIN 2% OINT 1 INCH/GM PACK TOP STA (17:01)
[2017-01-06] MEDS ORDERED: NITROGLYCERIN 2% OINT 1 INCH/GM PACK TOP ONE (17:47)
[2017-01-06] MEDS ORDERED: FUROSEMIDE 40 MG/4 ML VIAL ONE (17:47)
[2017-01-06] MEDS ORDERED: hydrALAZINE 20 MG/1 ML VIAL ONE (17:47)
[2017-01-06] MEDS ORDERED: FUROSEMIDE 20 MG/2 ML VIAL ONE (17:48)
[2017-01-06] MEDS ORDERED: ONDANSETRON 4 MG/2 ML VIAL ONE (17:48)
[2017-01-06] MEDS ORDERED: ASPIRIN 325 MG TABLET ONE (17:48)
[2017-01-06 17:50] LABS: Basophils % 0.7 % (0.0-0.8); Eosinophils # 0.1 10*3/uL (0.0-0.87); Hematocrit 32.3 VOL% (35.7-47.0); Hemoglobin 10.6 GM/DL (12.0-16.0); Immature Granulocytes % 0.5 %; Immature Granulocytes Absolute 0.03 #; Lymphocytes # 1.1 10*3/uL (1.4-4.0); Lymphocytes % 20.5 % (21.3-54.2); Mean Corpuscular HGB Conc 32.8 GM/DL (32-36); Mean Corpuscular Hemoglobin 28 PG (27-34); Mean Corpuscular Volume 84.3 FL (87-102); Mean Platelet Volume 12.3 FL (9.6-12.0); Monocytes # 0.4 10*3/uL (0.11-0.8); NRBC # 0.04 10*3/uL; Neutrophils # 3.8 10*3/uL (1.4-7.4); Neutrophils % 69.3 % (38.7-73.9); Platelet Count 217 T/CUMM (130-400); Red Blood Count 3.83 MC/CUMM (3.8-5.5); Red Cell Distribution Width 18.3 % (9.3-17.3); White Blood Count 5.6 T/CUMM (4-12)
--- NOTE | 2017-01-06 18:10 | CT Report ---
Exam: CT head without intravenous contrast Clinical History: 51 years Female Headache Technique: Axial computed tomography images of the head/brain without intravenous contrast. The CT exam was performed using one or more of the following dose reduction techniques: Automated exposure control, adjustment of the mA and/or kV according to patient size, or use of iterative reconstruction technique. Comparison: No relevant comparisons Findings: Brain: Remote left occipital infarct with encephalomalacia. Microangiopathic small vessel ischemic changes throughout the deep white matter, somewhat accelerated for patient's stated age. Byrd-white matter distinction maintained. No mass effect. No intra or extra-axial hemorrhage. Ventricles: Unremarkable. No ventriculomegaly. Bones/joints: Calvarium is intact Soft tissues: Unremarkable Sinuses: No active paranasal sinus process Mastoid air cells: Unremarkable as visualized. Impression: 1. No acute intracranial abnormality. Accelerated microangiopathic small vessel ischemic changes for age with left occipital encephalomalacia from remote insult PROCEDURE INTERPRETED AT [facility] DEPARTMENT OF RADIOLOGY Final Report Signed by: Marbin Byrd MD
[2017-01-06 18:34] LABS: Apearance,Urine CLEAR (Clear); Bacteria,Urine Occasional /HPF (Few); Bilirubin,Urine Negative (Negative); Blood, Urine Small mg/dL (Negative); Glucose,Urine (UA) 150 mg/dL (Negative); Hyaline Casts,Urine 16 /LPF (0-3); Ketones,Urine Negative (Negative); Mucus,Urine Occasional /LPF (Occasional); Nitrite,Urine Negative (Negative); Protein,Urine >=500 MG/DL; RBC,Urine 8 /HPF (0-4); Squamous Epithelial Cell,Urine Occasional /HPF (0-10); Urine Color Yellow (Yellow); Urine Specific Gravity 1.009 (1.001-1.035); Urine Urobilinogen < 2.0 EU/DL (0.2-1.0); WBC,Urine 4 /HPF (0-6)
[2017-01-06 18:35] LABS: Alanine Aminotransferase 43 U/L (13-56); Albumin 2.1 G/DL (3.4-5.0); Alkaline Phosphatase 444 U/L (45-117); Aspartate Amino Transferase 28 U/L (0-37); Bilirubin,Total < 0.39 MG/DL (0.2-1.0); Blood Urea Nitrogen 33 MG/DL (7-18); Calcium 8.6 MG/DL (8.5-10.1); Glucose 208 MG/DL (74-106); Magnesium 2.2 MG/DL (1.8-2.4); Osmolality,Calculated 291.4 MOS/KG (273-304); Potassium 3.4 MMOL/L (3.5-5.1); Sodium 140 MMOL/L (136-145); Total Protein 6.1 G/DL (6.4-8.3); Troponin I Only 0.044 NG/ML (0.00-0.045)
[2017-01-06 18:38] LABS: Barbiturates Screen,Urine Negative (Negative); Benzodiazepines Screen,Urine Negative (Negative); Cannabinoid Screen,Urine Negative (Negative); Opiate Screen,Urine Negative (Negative); Phencyclidine Screen,Urine Negative (Negative)
--- NOTE | 2017-01-06 18:44 | XRay Report ---
Portable chest Indication: Shortness of breath, cough Comparison: September 18, 2016 Findings: Cardiomediastinal contours are stable with underlying cardiomegaly and central interstitial prominence. No focal consolidation. No acute osseous abnormalities. Visualized upper abdomen demonstrates no acute pathology. Impression: Cardiomegaly with central interstitial prominence, may represent pulmonary venous congestion and early interstitial edema PROCEDURE INTERPRETED AT [facility] DEPARTMENT OF RADIOLOGY Final Report Signed by: Marbin Byrd MD
--- NOTE | 2017-01-06 18:53 | Emergency Department Note ---
Cherrie Hawthorne Rolonda, am scribing for, and in the presence of, Abundio Bowser MD 16:59. Mague Hawthorne Charles R, MD, personally performed the services described in this documentation, ascribed by Janet Grier in my presence, and it is both accurate and complete [id number] . Arrival - Arrival Chief Complaint: Headache Stated Complaint: left arm/facial pain ED Nursing Triage Note: Brought in per EMS with c/o headache onset approx 1430pm. Also c/o left sided facial pain radiating into left arm. +nausea. Denies shortness of breath or chest pain. Mode of Arrival: Stretcher Limitations: No Limitations Source: Patient, Old Records Reviewed, RN Notes Reviewed Time Seen by Provider: 01/06/17 16:44 - History of Present Illness HPI Narrative: Pt is a 51 y/o female who presents to the ED via EMS for further evaluation of neurological issues with an onset of hours ago. Pt has a PMHx of Cardiovascular problems, DM, and Renal problems. She states that she is experiencing left sided facial pain and numbness as well as a sharp pain that radiates to her left arm. At time of triage pt's BP was 186/110. Pt denies SOB and CP. No other complaint/pain in ED. Onset (ago): hour(s) Consistency: constant Severity: mild, moderate Severity scale (1-10): 3 Date of Last Menstrual Period: PM Allergies/Adverse Reactions: Allergies Allergy/AdvReac Type Severity Reaction Status Date / Time morphine Allergy HIVES Verified 01/06/17 15:55 hydrocodone [From [place]] AdvReac Severe HIVES Verified 01/06/17 15:55 Home Medications: Home Medications Medication Instructions Recorded Confirmed Type Ascorbic Acid Tab [Vitamin C Tab] 1,000 mg PO BID tablet 08/12/16 01/06/17 Rx Albuterol Inhaler [Proventil 2 puff INH Q4H PRN #1 inhaler 09/21/16 01/06/17 Rx Inhaler] Budesonide/Formoterol 160-4.5 2 puff INH BID #1 inhaler 09/21/16 01/06/17 Rx [Symbicort 160-4.5] Gabapentin Cap/Tab [Neurontin 100 mg PO BID #60 capsule 09/21/16 01/06/17 Rx Cap/Tab] Pantoprazole Tab [Protonix Tab] 40 mg PO AC SUPPER #30 tablet 09/21/16 01/06/17 Rx Carvedilol [Coreg] 12.5 mg PO QAM 01/06/17 01/06/17 History Furosemide Tab [Lasix Tab] 160 mg PO QAM 01/06/17 01/06/17 History Insulin Detemir [Levemir] 50 unit SUBCUT BEDTIME 01/06/17 01/06/17 History Insulin Regular [HumuLIN R] 0 unit SUBCUT AC BREAKFAST PRN 01/06/17 01/06/17 History Isosorbide Mononitrate [Imdur] 15 mg PO QAM 01/06/17 01/06/17 History Lisinopril [Lisinopril] 10 mg PO BEDTIME 01/06/17 01/06/17 History Review of System - Review of System 12 point system: reviewed and no additional remarkable complaints except as stated - Review of System Constitutional: Absent: chills Eyes: Absent: discharge Head/Ears/Nose/Throat: Absent: earache Respiratory: Absent: cough Cardiovascular: Absent: chest pain Gastrointestinal: Absent: abdominal pain Genitourinary female: Absent: dysuria Musculoskeletal: Absent: arm pain Skin: Absent: rash Neurological: Present: numbness (left arm and left side of face) Psychiatric: Absent: anxiety Endocrine: Absent: cold intolerance Hematological/Lymphatic: Absent: easy bleeding Allergic/Immunologic: Absent: facial swelling Medical,Surgical,& Family Hx - Medical History Cardio: History of: CHF, Hypertension, Valvular Heart Disease (Mitral regurgitation), Cardiovascular Problems (cardiomegaly) No history of: CT, Pacemaker Psychological: History of: Anxiety Disorders, Schizophrenia (pt states she knows she's schizophrenic) Neurology: History of: Peripheral Neuropathy No history of: Cerebrovascular Accident, Seizures HEENT: History of: Eye Problem (glasses, cataracts in right eye) Endocrine: History of: Diabetes Mellitus (IDDM), Diabetes Mellitus (NIDDM), Dyslipidemia, Thyroid Disorder No history of: Adrenal Disease Respiratory: History of: Asthma, Bronchitis, COPD, Obstructive Sleep Apnea, Pneumonia Renal: History of: Renal Problems Genitourinary: No history of: Kidney Stones Gastrointestinal: History of: GERD, Hemorrhoids Musculoskeletal: History of: Musculoskeletal Problems (weakness) No history of: Amputation Hematology: History of: Anemia (chronic kidney disease), Blood Transfusion Reaction (pt broke out in rash) Reproductive: History of: Complication (placeta previa; incompetent cervix) - Surgical History Cardiac Surgeries: Sugical HX of: Cardiac Catheterization (Right heart catheterization) HEENT Surgeries: Patient denies: Tonsilectomy & Adenoidectomy Abdominal Surgeries: Patient denies: Appendectomy, Cholecystectomy, Colonoscopy, EGD Reproductive Surgeries: Surgical HX of;: Tubal Ligation - Family History Family History: Reports;: Family Cancer (uncle had prostate and cousin had breast), Family Diabetes (mom, dad, siblings), Family Heart Disease (mom, dad, siblings), Family Hypertension (mom, dad, siblings), Family Stroke (aunt, mom) Denies;: Family Anesthesia Reaction, Family Psychiatric Problems - Social History Smoking Status: Current some day smoker Frequency of Alcohol Use: None Type of Drug Use: None Exam Vital Signs: Vital Signs Temperature 97.4 F L 01/06/17 15:43 Pulse Rate 74 01/06/17 15:43 Respiratory Rate 20 01/06/17 15:43 Blood Pressure 186/110 01/06/17 15:43 O2 Sat by Pulse Oximetry 98 01/06/17 15:45 - General General appearance: alert, in no apparent distress - Head Head exam: Present: atraumatic, normocephalic - Eye Eye exam: Present: PERRL, EOMI - ENT ENT exam: Present: mucous membranes moist. Absent: mucous membranes dry - Neck Neck exam: Present: full ROM. Absent: tenderness - Chest Chest inspection: Present: symmetric chest wall rise. Absent: tenderness - Respiratory Respiratory exam: Present: rales (at base). Absent: normal lung sounds bilaterally - Cardiovascular Cardiovascular exam: Present: murmur (3/6 left side of chest) - Abdominal Exam Abdominal exam: Present: soft, normal bowel sounds. Absent: tenderness - Extremities Exam Extremities exam: Present: full ROM, pedal edema (+1). Absent: tenderness - Back Exam Back exam: Present: full ROM. Absent: tenderness - Neurological Exam Neurological exam: Present: alert, oriented X3, CN II-XII intact - Psychiatric Psychiatric exam: Present: normal affect, normal mood - Skin Skin exam: Present: warm, dry, intact, normal color. Absent: rash Course - Consultations Consultation #1: Hospitalist will admit patient Time: 18:51 Results - Labs CBC & BMP: 01/06/17 17:42 01/06/17 17:42 Lab Results: I have reviewed the patients labs Labs: Laboratory Tests 01/06/17 17:42 WBC 5.6 RBC 3.83 Hgb 10.6 L Hct 32.3 L MCV 84.3 L RDW 18.3 H MPV 12.3 H Lymph % (Auto) 20.5 L Lymph # (Auto) 1.1 L - Diagnostic Findings Procedure: CT: report reviewed by me (Head/Brain: 1. No acute intracranial abnormality. Accelerated microangiopathic small vessel ischemic changes for age with left occipital encephalomalacia from remote insult.) Disposition Clinical Impression: Migraine, Hypertension, CHF (congestive heart failure), Chronic renal failure, Mitral regurgitation, Hypertensive urgency, Chest pain Case discussed with: patient Disposition: Still a Patient Condition: Stable Time of Disposition: 18:52
[2017-01-06] MEDS ORDERED: ONDANSETRON 4 MG/2 ML VIAL IV PRN (20:22)
[2017-01-06] MEDS ORDERED: DEXTROSE 50% 25 GM/50 ML VIAL IV PRN (20:31)
[2017-01-06] MEDS ORDERED: GLUCAGON 1 MG VIAL IM PRN (20:31)
[2017-01-06] MEDS ORDERED: NITROGLYCERIN SL 0.4 MG TABLET SL PRN (20:56)
[2017-01-06] MEDS ORDERED: hydrALAZINE 20 MG/1 ML VIAL IV PRN (20:57)
[2017-01-06] MEDS ORDERED: LISINOPRIL 10 MG TABLET PO SCH (21:00)
--- NOTE | 2017-01-06 21:17 | Hospitalist History & Physical ---
Assessment and Plan - Time spent with patient Time spent with patient: Greater than 30 minutes (1) Atypical chest pain Status: Acute Assessment and plan: Admit to hospitalist services. Consult cardiology. Pain was reported to be in left side of face and left arm with lip numbness and impaired memory; CT head negative. Consider MRI head/brain. Obtain Echo and Carotid US. Fasting lipid panel. Initial troponin in ED was 0.044; follow serial troponins. Initial EKG without evidence of ST elevation; follow serial EKGs. BNP was 1178. Diuresis started in ED with Lasix 60 mg IV x 1; continue with Lasix 80 mg IV BID. Start ASA 325 mg PO daily. Continue home BP medications. Nitroglycerine and hydralazine PRN. O2 per unit protocol. DuoNebs Q6 PRN. CBC, CMP, TSH/Free T4, BNP in a.m. Current Visit: Yes (2) Hypertensive urgency Status: Acute Assessment and plan: As above. Current Visit: Yes (3) CHF (congestive heart failure) Status: Acute Assessment and plan: As above. Current Visit: Yes (4) Hypokalemia Status: Acute Assessment and plan: Give Potassium 10 meq PO x 1 dose. Recheck BMP in a.m. Current Visit: Yes (5) Anemia Problem details: Chronic. Monitor H/H. Transfuse if needed. Status: Chronic Assessment and plan: Stable; at baseline. Recheck CBC in a.m. Current Visit: Yes Qualifiers: Other causes of anemia: chronic disease, kidney (6) Chronic kidney disease Problem details: Creatinine improved to 2.8. Status: Chronic Assessment and plan: As above. Current Visit: Yes Qualifiers: Chronic kidney disease stage: stage 3 (moderate) Qualified Code(s): N18.3 - Chronic kidney disease, stage 3 (moderate) (7) Diabetes mellitus Status: Chronic Assessment and plan: NPO after midnight except ice chips and small sips of water for medications until fasting lipid panel drawn. Then start ADA diet after fasting lipid panel drawn. Continue home medications. Accuchecks and SSI ACHS. Current Visit: No Qualifiers: Diabetes mellitus type: type 2 Diabetes mellitus complication detail: with chronic kidney disease Diabetes mellitus penitentiary insulin use: with penitentiary use Chronic kidney disease stage: stage 4 (severe) (8) Asthma Problem details: Albuterol PRN. Continue home meds. Status: Chronic Assessment and plan: Continue home medications. DuoNebs Q6 PRN. Current Visit: No (9) DVT prophylaxis Status: Acute Assessment and plan: Lovenox 30 mg SQ daily. Current Visit: Yes History of Present Illness Chief complaint: Left arm and face pain History of present illness: Ms. Bethea is a 51 year old female with a past medical history of HTN, IDDM, CHF , CRF, asthma, and neuropathy who presented to the ED today with complaints of sharp pain in the left side of her face and in her left arm that started around 14:30 today, as well as bilateral leg swelling x 3 days. She reports that left face pain radiated to her lip and her lip became numb. EMS gave her 325 mg ASA and symptoms resolved in about 1 hour. She denies chest pain, SOB, dizziness, and vision changes. She does complain a feeling of chest congestion, particularly while lying down, and impaired memory that she says started after arrival to the ED. She was hypertensive at 186/110 upon arrival in the ED. She was treated with Nitro and Hydralazine and pressure decreased to 164/99 at the time of this exam. Significant labs in the ED were H/H 10.6/32.3, MCV /84.3, K 3.4, BUN 33, Creatinine 2, Glucose 208, Alkaline phosphatase 444, Troponin 0.044 , BNP 1178, and Albumin 2.1. EKG was negative for ST segment elevation. CXR showed "cardiomegaly with central interstitial prominence, may represent pulmonary venous congestion and early interstitial edema." CT head showed no acute intracranial abnormality. She is currently lying in bed with symptoms relieved and without further complaint. Hospitalist services were consulted, and the patient will be admitted for further evaluation and treatment. Home medications were reviewed and reconciled. This patient is a full code. Home Medications Medication Instructions Recorded Confirmed Type Ascorbic Acid Tab [Vitamin C Tab] 1,000 mg PO BID tablet 08/12/16 01/06/17 Rx Albuterol Inhaler [Proventil 2 puff INH Q4H PRN #1 inhaler 09/21/16 01/06/17 Rx Inhaler] Budesonide/Formoterol 160-4.5 2 puff INH BID #1 inhaler 09/21/16 01/06/17 Rx [Symbicort 160-4.5] Gabapentin Cap/Tab [Neurontin 100 mg PO BID #60 capsule 09/21/16 01/06/17 Rx Cap/Tab] Pantoprazole Tab [Protonix Tab] 40 mg PO AC SUPPER #30 tablet 09/21/16 01/06/17 Rx Carvedilol [Coreg] 12.5 mg PO QAM 01/06/17 01/06/17 History Furosemide Tab [Lasix Tab] 160 mg PO QAM 01/06/17 01/06/17 History Insulin Detemir [Levemir] 50 unit SUBCUT BEDTIME 01/06/17 01/06/17 History Insulin Regular [HumuLIN R] 0 unit SUBCUT AC BREAKFAST PRN 01/06/17 01/06/17 History Isosorbide Mononitrate [Imdur] 15 mg PO QAM 01/06/17 01/06/17 History Lisinopril [Lisinopril] 10 mg PO BEDTIME 01/06/17 01/06/17 History Allergies Allergy/AdvReac Type Severity Reaction Status Date / Time morphine Allergy HIVES Verified 01/06/17 15:55 hydrocodone [From [place]] AdvReac Severe HIVES Verified 01/06/17 15:55 Medical,Surgical,& Family Hx - Medical History Cardio: History of: CHF, Hypertension, Valvular Heart Disease (Mitral regurgitation), Cardiovascular Problems (cardiomegaly) Psychological: History of: Anxiety Disorders, Schizophrenia (pt states she knows she's schizophrenic) Neurology: History of: Peripheral Neuropathy HEENT: History of: Eye Problem (glasses, cataracts in right eye) Endocrine: History of: Diabetes Mellitus (IDDM), Dyslipidemia, Thyroid Disorder Respiratory: History of: Asthma, Bronchitis, COPD, Obstructive Sleep Apnea, Pneumonia Renal: History of: Renal Problems Gastrointestinal: History of: GERD, Hemorrhoids Musculoskeletal: History of: Musculoskeletal Problems (weakness) Hematology: History of: Anemia (chronic kidney disease), Blood Transfusion Reaction (pt broke out in rash) Reproductive: History of: Complication (placeta previa; incompetent cervix) - Surgical History Cardiac Surgeries: Sugical HX of: Cardiac Catheterization (Right heart catheterization) Reproductive Surgeries: Surgical HX of;: Tubal Ligation - Family History Family History: Reports;: Family Cancer (uncle had prostate and cousin had breast), Family Diabetes (mom, dad, siblings), Family Heart Disease (mom, dad, siblings), Family Hypertension (mom, dad, siblings), Family Stroke (aunt, mom) - Social History Smoking Status: Current every day smoker (3 cigarettes per day) Have you smoked in the last 12 months: Yes Time spent discussing smoking cessation with patient: 3 to 10 minutes (3 minutes were spent discussing smoking cessation with the patient.) Frequency of Alcohol Use: Occasionally Type of Drug Use: None Marital Status: Single Lives With:: Children (Daughter) Functional capacity: uses cane/walker (cane) 12 point system: reviewed and no additional remarkable complaints except as stated - Constitutional Constitutional: Present: chills. Absent: anorexia, fever(s), headache(s), lethargy, malaise, weakness - EENT Eyes: Absent: blurry vision, diplopia, loss of vision Ears: Absent: decreased hearing, ear discharge, ear pain Nose, mouth and throat: Absent: headache(s), nasal congestion, sore throat - Cardiovascular Cardiovascular: Present: edema, orthopnea. Absent: chest pain at rest, chest pain with activity, diaphoresis, dyspnea, radiating jaw, neck or arm pain, lightheadedness, palpitations - Respiratory Respiratory: Absent: cough, dyspnea, dyspnea on exertion, wheezing - Gastrointestinal Gastrointestinal: Absent: abdominal pain, constipation, diarrhea, nausea, vomiting - Genitourinary Genitourinary: Absent: dysuria, flank pain, urinary frequency - Musculoskeletal Musculoskeletal: Absent: arthralgias, back pain, joint swelling, muscle weakness , myalgias - Neurological Neurological: Present: memory loss. Absent: confusion, numbness, paresthesias, syncope - Psychiatric Psychiatric: Absent: anxiety, depression - Endocrine Endocrine: Absent: cold intolerance, polydipsia, polyphagia, polyuria - Hematologic/Lymphatic Hematologic/Lymphatic: Absent: easy bleeding, easy bruising Exam - Constitutional Vitals: Period Temp Pulse Resp BP Sys/[place] Pulse Ox Last 24 Hr 97.4 F-97.4 F 67-75 16-20 162-186/94-118 94-98 Exam: Constitutional System: Afebrile. Awake, alert, and oriented x 3. No distress. No tremulousness. Head: Normocephalic, atraumatic. Ears, Nose and Throat System: No pain or tenderness. No epistaxis or discharge Eyes System: Pupils equal, round, and reactive. Extraocular muscles intact. Neck: Supple, without adenopathy, No jugular venous distention. No thyromegaly, neck mass, or prior surgery apparent. Respiratory System: Left posterior wheezing noted. Cardiovascular System: Heart with regular rate and rhythm. Systolic murmur noted. GI System: Abdomen soft, nontender. Normo active bowel sounds present. Musculoskeletal System: 2+ pitting edema of BLEs extending to mid thigh. Full distal pulses. Normal capillary refill. Neurological System: No discernable sensory deficit. No aphasia Psychiatric System: Conversation is rational Results - Labs CBC & BMP: 01/06/17 17:42 01/06/17 17:42 Lab Results: I have reviewed the past 24 hour labs Labs: WBC 5.6 RBC 3.83 Hgb 10.6 HCT 32.3 MCV 84.3 Platelet 217 Sodium 140 Potassium 3.4 Chloride 108 BUN 33 Creatinine 2 Glucose 208 Calcium 8.6 Magnesium 2.2 Alkaline phosphatase 444 Troponin 0 0.044 BNP 1178 Albumin 2.1
[2017-01-06] MEDS ORDERED: ALBUTEROL/IPRATROPIUM 3 ML NEB RESP TX PRN (21:21)
[2017-01-06] MEDS ORDERED: POTASSIUM CHLORIDE 10 MEQ TABLET PO ONE (21:37)
[2017-01-06] MEDS: INSULIN LISPRO 100 UNIT/ML SUBCUT SCH (22:09)
[2017-01-06] MEDS: INSULIN GLARGINE 100 UNIT/ML SUBCUT SCH (22:09)
[2017-01-06] MEDS: GABAPENTIN 100 MG CAPSULE PO SCH (22:11)
[2017-01-06] MEDS: ASCORBIC ACID 500 MG TABLET PO SCH (22:11)
[2017-01-06] MEDS: ENOXAPARIN 30 MG/0.3 ML SYRINGE SUBCUT SCH (22:11)
[2017-01-06] MEDS: BUDESONIDE/FORMOTEROL 160-4.5 INHALER 6 GM INH SCH (22:11)
--- NOTE | 2017-01-06 22:46 | Order Completion Report ---
See report scanned to EMR
[2017-01-07 07:33] LABS: Basophils % 0.8 % (0.0-0.8); Eosinophils # 0.1 10*3/uL (0.0-0.87); Eosinophils % 2.3 % (0.00-10.9); Hematocrit 33.4 VOL% (35.7-47.0); Hemoglobin 11.1 GM/DL (12.0-16.0); Immature Granulocytes % 0.4 %; Immature Granulocytes Absolute 0.02 #; Lymphocytes # 1.1 10*3/uL (1.4-4.0); Lymphocytes % 22.1 % (21.3-54.2); Mean Corpuscular HGB Conc 33.2 GM/DL (32-36); Mean Corpuscular Hemoglobin 28 PG (27-34); Mean Corpuscular Volume 84.1 FL (87-102); Mean Platelet Volume 12.2 FL (9.6-12.0); Monocytes # 0.4 10*3/uL (0.11-0.8); Monocytes % 7.4 % (1.7-12.7); NRBC # 0.02 10*3/uL; Neutrophils # 3.2 10*3/uL (1.4-7.4); Platelet Count 213 T/CUMM (130-400); Red Blood Count 3.97 MC/CUMM (3.8-5.5); Red Cell Distribution Width 18.6 % (9.3-17.3); White Blood Count 4.8 T/CUMM (4-12)
--- NOTE | 2017-01-07 07:45 | Ultrasound Report ---
Carotid artery ultrasound Indication: Stroke Comparison: None available Color Doppler flow and spectral analysis was performed. Findings: Small amount of atherosclerotic plaque is present in both proximal internal carotid arteries. Right peak systolic velocity: Right CCA:70.3 cm/s. Right proximal Internal Carotid Artery is 66.4 cm/s. Ratio of flow is 1.2 Right distal Internal Carotid is 87.3 cm/s . Left peak systolic velocity: Left CCA:72.9 cm/s. Left proximal Internal carotid Artery is 80.7 cm/s . Ratio of flow is 1.1 Left distal Internal carotid Artery is 71.6cm/s Bilateral antegrade vertebral flow is seen. Impression: No evidence of hemodynamically significant stenosis is seen, 0-49% estimated stenosis. Consensus conference on the carotid ultrasound criteria used. Ultrasound images were captured and stored. PROCEDURE INTERPRETED AT [facility] DEPARTMENT OF RADIOLOGY Final Report Signed by: Dr. Kimani Garcia
[2017-01-07 08:22] LABS: Calcium 8.7 MG/DL (8.5-10.1); Free T4 (Free Thyroxine) 0.95 NG/DL (0.76-1.46); Osmolality,Calculated 293.3 MOS/KG (273-304); Potassium 3.6 MMOL/L (3.5-5.1); Risk Ratio 3.95; Thyroid Stimulating Hormone 2.55 uIU/ml (0.358-3.74); VLDL CHOLESTEROL 26.6 MG/DL
--- NOTE | 2017-01-07 09:14 | Cardiology Consult Note ---
Assessment and Plan - Time spent with patient Time spent with patient: Greater than 30 minutes (1) Acute on chronic combined systolic (congestive) and diastolic (congestive) heart failure Status: Acute Assessment and plan: SEE PLAN OF CARE LISTED BELOW. Current Visit: Yes (2) Hypertension Problem details: Continue home meds Status: Chronic Assessment and plan: SEE PLAN OF CARE LISTED BELOW. Current Visit: Yes Qualifiers: Hypertension type: essential hypertension Qualified Code(s): I10 - Essential (primary) hypertension (3) Diabetes mellitus Status: Chronic Assessment and plan: SEE PLAN OF CARE LISTED BELOW. Current Visit: Yes Qualifiers: Diabetes mellitus type: type 2 Diabetes mellitus complication detail: with chronic kidney disease Diabetes mellitus correction insulin use: with terminal clerk use Chronic kidney disease stage: stage 4 (severe) (4) Asthma Problem details: Albuterol PRN. Continue home meds. Status: Chronic Assessment and plan: SEE PLAN OF CARE LISTED BELOW. Current Visit: No (5) Lower extremity edema Status: Chronic Assessment and plan: SEE PLAN OF CARE LISTED BELOW. Current Visit: No (6) Chronic kidney disease Status: Chronic Assessment and plan: SEE PLAN OF CARE LISTED BELOW. Current Visit: Yes Qualifiers: Chronic kidney disease stage: stage 3 (moderate) Qualified Code(s): N18.3 - Chronic kidney disease, stage 3 (moderate) (7) Anemia Status: Chronic Assessment and plan: SEE PLAN OF CARE LISTED BELOW. Current Visit: Yes Qualifiers: Other causes of anemia: chronic disease, kidney (8) Cardiomyopathy Status: Chronic Assessment and plan: SEE PLAN OF CARE LISTED BELOW. Current Visit: Yes Qualifiers: Cardiomyopathy type: unspecified Qualified Code(s): I42.9 - Cardiomyopathy , unspecified (9) Dyslipidemia Status: Chronic Assessment and plan: SEE PLAN OF CARE LISTED BELOW. Current Visit: No (10) Noncompliance Status: Chronic Assessment and plan: SEE PLAN OF CARE LISTED BELOW. Current Visit: Yes (11) Severe mitral regurgitation Status: Chronic Assessment and plan: SEE PLAN OF CARE LISTED BELOW. Current Visit: No (12) Pulmonary hypertension Status: Chronic Assessment and plan: SEE PLAN OF CARE LISTED BELOW. Current Visit: Yes (13) Left arm pain Status: Acute Assessment and plan: SEE PLAN OF CARE LISTED BELOW. Current Visit: Yes (14) Jaw pain Status: Acute Assessment and plan: SEE PLAN OF CARE LISTED BELOW. Current Visit: Yes History of Present Illness - Data of Consult Patient: known to practice within the last 3 years Consult date: 01/07/17 Requesting Physician: Chan Kumar - Consult Narrative Reason for consult: Left arm pain, CHF History of present illness: FRONT OFFICE COORDINATOR: Dr. Pereira COACH BUILDER: Dr. Warren Ms. Bethea is a 51 year old female without known history of coronary artery disease, who has not followed up in the cardiology clinic but has had frequent admissions for recurrent congestive heart failure. Noncompliant. Patient has cardiac risk factors significant for diabetes, hypertension, current everyday smoker and sedentary lifestyle. Patient is a past medical history of diastolic (grade 1 dysfunction) and systolic heart failure (most recent ejection fraction June 2016 revealed ejection fraction of 35-40%, July 2015 her ejection fraction was 55%), chronic kidney disease (routinely followed by Dr. Warren), severe mitral regurgitation, anemia, asthma and neuropathy. She had a right heart catheterization per Dr. Leo July 2015. This revealed pulmonary hypertension. Right atrial pressure 17 mmHg, right ventricular pressure 48/19 mmHg, pulmonary capillary wedge pressure 26 mmHg and PAP 55/36 with a mean of 45 mmHg. At that time, they plan for left heart catheterization when renal function was optimized. She is not demonstrated compliance with her follow- through and has therefore not undergone cardiac catheterization. She has had several appointments made since that time and has not followed up. Patient presented to [facility] January 06, 2017 with complaints of left arm and jaw pain. She also confirms worsening bilateral lower extremity edema. She denies dyspnea, heaviness or tightness. Denies orthopnea worsening shortness of breath or dyspnea on exertion. She does report worsening cough/congestion. Her left arm pain developed yesterday afternoon while at rest. She developed a sharp pain in her left arm which then radiated to the left side of her face and jaw. No associated shortness of breath or chest pain. No nausea or diaphoresis. This only lasted approximately 1 hour and resolved on its own. Cannot identify any specific alleviating or activating factors. No triggers identified. She feels that she should be further evaluated in the emergency department. She has been admitted under hospital medicine's service. Housed on the telemetry unit. Cardiology has been consulted to further evaluate her symptomology. Patient was seen and examined on the telemetry along with Dr. Pereira. Patient is without complaints of chest pain, heaviness or tightness. Upon entering the room, her head of bed was approximately 20. She is without complaints of orthopnea or shortness of breath. She reports that she could lie flat without difficulty. Denies arm pain or jaw pain. She is noted to have bilateral lower extremity edema. Will order venous Dopplers of lower extremities to rule out DVT. BNP 1178 admission. She is currently being diuresed. Acute on chronic CHF, etiology is combined systolic and diastolic dysfunction LVEF (35%-40%), severe MR and non-compliance. NYHA Class III-IV. Patient has been hospitalized frequently for recurrent congestive heart failure. Patient does have severe MR and suspect that this is contributing. Patient also has a cardiomyopathy that has never been evaluated. We will plan for ischemic workup tomorrow morning with left heart catheterization if renal function remains stable. Obtain echocardiogram to reevaluate mitral regurgitation. If this remains severe, we can then begin planning for possible mitral valve replacement. In the meantime, we will continue to diurese patient with IV Lasix. Monitor renal function very closely given her chronic kidney disease. Continue to monitor strict I's and O's and daily weights. Avoiding JOSELIN inhibitor/ARB due to fear of worsening renal function. Continue afterload reduction with hydralazine and Imdur. Continue beta-blockade. We will keep patient n.p.o. after midnight. I will further discuss with Dr. Pereira and await his additional recommendations. IMPRESSION AND PLAN: 1. CHF - Acute on chronic CHF, etiology is combined systolic and diastolic dysfunction LVEF (35%-40%), severe MR and non-compliance. NYHA Class III-IV. Patient has been hospitalized frequently for recurrent congestive heart failure. Patient does have severe MR and suspect that this is contributing. Patient also has a cardiomyopathy that has never been evaluated. We will plan for ischemic workup tomorrow morning with left heart catheterization if renal function remains stable. Obtain echocardiogram to reevaluate mitral regurgitation. If this remains severe, we can then begin planning for possible mitral valve replacement. In the meantime, we will continue to diurese patient with IV Lasix. Monitor renal function very closely given her chronic kidney disease. Continue to monitor strict I's and O's and daily weights. Avoiding JOSELIN inhibitor/ARB due to fear of worsening renal function. Continue afterload reduction with hydralazine and Imdur. Continue beta-blockade. We will keep patient n.p.o. after midnight. I will further discuss with Dr. Pereira and await his additional recommendations. 2. CARDIOMYOPATHY, EF 35-40% - Etiology unknown as she has been non-compliant with follow-up/heart cath. This hospitalization patient's renal function appears to be optimal. Creatinine 2.0 this admission. Previous admissions creatinine has been as high as 4.0. I discussed with Dr. Pereira and I suspect that this is good timing for heart catheterization. We will continue to diurese patient and treat acute on chronic congestive heart failure. Patient reports that she feels that she will be able to lie flat tomorrow. No significant orthopnea. We will keep patient n.p.o. after midnight and discuss further with Dr. Celeste Leo regarding ischemic evaluation with left heart catheterization tomorrow morning. Continue beta-blockade. Repeating echocardiogram today. 3. PULMONARY HYPERTENSION - Continue current plan of care 4. DYSLIPIDEMIA - Lipid panel reviewed. LDL 229. I have high intensity statin. 5. CHRONIC KIDNEY DISEASE - Stage III. Creatinine 2.0 upon admission. This is actually improved from previous admissions. Will monitor with daily BMP. 6. NON-COMPLIANCE - Reiterated importance of compliance 7. SEVERE MITRAL REGURGITATION - Moderate to severe. We will repeat echocardiogram today. Patient will most likely benefit from valve replacement. Will plan for [facility] tomorrow to rule out ischemic etiology in preparation for possible valve replacement in her future. 8. DIABETES - Management per attending. 9. ANEMIA - Chronic. Stable. Continue to follow with daily CBC. 10. ASTHMA - Chronic, stable. 11. LEFT ARM, JAW PAIN - Cardiac biomarkers negative 3. EKG reveals T-wave abnormality in inferior leads. Will plan for ischemic evaluation tomorrow morning if renal function will allow. N.p.o. after midnight. Continue aspirin , beta-blockade and nitrates. 12. HYPERTENSION - Will monitor blood pressure and adjust medications accordingly. 13. BILATERAL LOWER EXTREMITY EDEMA - Chronic. Will order venous Dopplers to rule out DVT. CC: Olivier Juarez - Home Medications and Allergies Home Medications: Home Medications Medication Instructions Recorded Confirmed Type Ascorbic Acid Tab [Vitamin C Tab] 1,000 mg PO BID tablet 08/12/16 01/06/17 Rx Albuterol Inhaler [Proventil 2 puff INH Q4H PRN #1 inhaler 09/21/16 01/06/17 Rx Inhaler] Budesonide/Formoterol 160-4.5 2 puff INH BID #1 inhaler 09/21/16 01/06/17 Rx [Symbicort 160-4.5] Gabapentin Cap/Tab [Neurontin 100 mg PO BID #60 capsule 09/21/16 01/06/17 Rx Cap/Tab] Pantoprazole Tab [Protonix Tab] 40 mg PO AC SUPPER #30 tablet 09/21/16 01/06/17 Rx Carvedilol [Coreg] 12.5 mg PO QAM 01/06/17 01/06/17 History Furosemide Tab [Lasix Tab] 80 mg PO QAM 01/06/17 01/07/17 History Insulin Detemir [Levemir] 30 unit SUBCUT BEDTIME 01/06/17 01/07/17 History Insulin Regular [HumuLIN R] 0 unit SUBCUT AC BREAKFAST PRN 01/06/17 01/06/17 History Isosorbide Mononitrate [Imdur] 15 mg PO QAM 01/06/17 01/06/17 History Lisinopril [Lisinopril] 10 mg PO DAILY 01/06/17 01/07/17 History Allergies/Adverse Reactions: Allergies Allergy/AdvReac Type Severity Reaction Status Date / Time morphine Allergy HIVES Verified 01/06/17 15:55 hydrocodone [From Niotaze] AdvReac Severe HIVES Verified 01/06/17 15:55 - Constitutional Constitutional: Present: as per HPI, fatigue, headache(s), malaise, weakness, weight gain. Absent: chills, fever(s), frequent falls, weight loss - EENT Nose, mouth and throat: Present: as per HPI, nasal congestion, other (Sinus congestion). Absent: sore throat - Cardiovascular Cardiovascular: Present: as per HPI, edema, radiating jaw, neck or arm pain. Absent: chest pain at rest, chest pain with activity, claudication, diaphoresis , dyspnea, dyspnea on exertion, lightheadedness, orthopnea, palpitations, PND - Respiratory Respiratory: Present: as per HPI, cough. Absent: dyspnea, hemoptysis, dyspnea on exertion, wheezing, snoring, pain on inspiration, change in phlegm color - Gastrointestinal Gastrointestinal: Present: as per HPI. Absent: abdominal pain, change in bowel habits, coffee ground emesis, heartburn, hematemesis, hematochezia, melena, nausea, vomiting - Neurological Neurological: Present: as per HPI, headache(s). Absent: abnormal gait, abnormal speech, behavioral changes, dizziness, frequent falls, syncope - Psychiatric Psychiatric: Present: as per HPI. Absent: anxiety, depression, panic attacks Medical,Surgical,& Family Hx - Medical History Cardio: History of: CHF, Hypertension, Valvular Heart Disease (Mitral regurgitation), Cardiovascular Problems (cardiomegaly) Psychological: History of: Schizophrenia (pt states she knows she's schizophrenic) Neurology: History of: Peripheral Neuropathy HEENT: History of: Eye Problem (glasses, cataracts in right eye) Endocrine: History of: Diabetes Mellitus (IDDM), Diabetes Mellitus (NIDDM), Dyslipidemia, Thyroid Disorder Respiratory: History of: Asthma, Bronchitis, Obstructive Sleep Apnea, Pneumonia Renal: History of: Renal Problems Gastrointestinal: History of: GERD, Hemorrhoids Musculoskeletal: History of: Musculoskeletal Problems (weakness) Hematology: History of: Anemia (chronic kidney disease), Blood Transfusion Reaction (pt broke out in rash) Reproductive: History of: Complication (placeta previa; incompetent cervix) - Surgical History Cardiac Surgeries: Sugical HX of: Cardiac Catheterization (Right heart catheterization) Reproductive Surgeries: Surgical HX of;: Tubal Ligation - Family History Family History: Reports;: Family Cancer (uncle had prostate and cousin had breast), Family Diabetes (mom, dad, siblings), Family Heart Disease (mom, dad, siblings), Family Hypertension (mom, dad, siblings), Family Stroke (aunt, mom) Denies;: Family Psychiatric Problems - Social History Smoking Status: Current every day smoker (3 cigarettes per day) Frequency of Alcohol Use: Occasionally Type of Drug Use: None Functional capacity: independent ambulation Physical Examination Vital Signs Temp Pulse Resp BP Pulse Ox 97.4 F L 74 20 186/110 98 01/06/17 15:43 01/06/17 15:43 01/06/17 15:43 01/06/17 15:43 01/06/17 15:43 Exam: General: Appears well with no apparent distress. Pleasant and cooperative. Appears comfortable. HEENT: PERRL, normocephalic, atraumatic. Mucous membranes moist. No jaundice noted. Conjunctiva moist and clear, sclerae anicteric Neck: Mild JVD, no thyromegaly or lymphadenopathy noted. No carotid bruit appreciated Cardiac: Regular rate and rhythm. Systolic murmur. Lungs: Clear to auscultation without accessory muscle use to assist the respiratory pattern. Oxygen intermittently Abdomen: Soft, bowel sounds normoactive. Nontender and nondistended. No abdominal bruit or thrill noted. No masses noted. Extremities: No clubbing, cyanosis noted. 1-2+ bilateral lower extremity edema upper extremity pulses 2+. Lower extremity pulses 2+. Capillary refill less than 3 seconds. Skin: No unusual lesions or rashes. No skin breakdown appreciated. Neuro: Awake, alert and oriented 3. Moves all extremities well without hemiparesis or paralysis. No essential tremor is appreciated. Result/EKG - Labs CBC & BMP: 01/07/17 07:16 01/07/17 07:15 Lab Results: I have reviewed the past 24 hour labs Labs: Laboratory Results - last 24 hr 01/06/17 01/06/17 01/06/17 17:42 17:42 17:42 WBC 5.6 RBC 3.83 Hgb 10.6 L Hct 32.3 L MCV 84.3 L MCH 28 MCHC 32.8 RDW 18.3 H Plt Count 217 MPV 12.3 H Neut % (Auto) 69.3 Lymph % (Auto) 20.5 L [place] % (Auto) 7.0 Eos % (Auto) 2.0 Baso % (Auto) 0.7 Neut # (Auto) 3.8 Lymph # (Auto) 1.1 L [place] # (Auto) 0.4 Eos # (Auto) 0.1 Baso # (Auto) 0.0 Immature Gran % 0.5 Nucleated RBC % 0.7 Immature Gran # 0.03 Nucleated RBCs # 0.04 Immature Plt Fraction 0.0 Sodium 140 Potassium 3.4 L Chloride 108 H Carbon Dioxide 23 Anion Gap 12.4 BUN 33 H Creatinine 2.00 H GFR Calculation 32 BUN/Creatinine Ratio 16.00 Glucose 208 H POC Glucose Calculated Osmolality 291.4 Calcium 8.6 Magnesium 2.2 Total Bilirubin < 0.39 AST 28 ALT 43 Alkaline Phosphatase 444 H Troponin I 0.044 B-Natriuretic Peptide 1178 H Total Protein 6.1 L Albumin 2.1 L Globulin 4.0 H Albumin/Globulin Ratio 0.5 L Triglycerides Cholesterol LDL Cholesterol VLDL Cholesterol HDL Cholesterol Heart Disease Risk Ratio Free T4 TSH 3rd Generation Urine Color Urine Appearance Urine pH Ur Specific [place] Urine Protein Urine Glucose (UA) Urine Ketones Urine Blood Urine Nitrate Urine Bilirubin Urine Urobilinogen Urine Leukocytes Urine RBC Urine WBC Ur Squamous Epith Cells Urine Bacteria Hyaline Casts Urine Mucus Ur Culture Indicated? Urine Opiates Screen Ur Barbiturates Screen Ur Phencyclidine Scrn U Amphetamine/Methamph U Benzodiazepines Scrn U Cocaine Metab Screen U Cannabinoids Screen 01/06/17 01/06/17 01/06/17 18:01 18:01 22:08 WBC RBC Hgb Hct MCV MCH MCHC RDW Plt Count MPV Neut % (Auto) Lymph % (Auto) [place] % (Auto) Eos % (Auto) Baso % (Auto) Neut # (Auto) Lymph # (Auto) [place] # (Auto) Eos # (Auto) Baso # (Auto) Immature Gran % Nucleated RBC % Immature Gran # Nucleated RBCs # Immature Plt Fraction Sodium Potassium Chloride Carbon Dioxide Anion Gap BUN Creatinine GFR Calculation BUN/Creatinine Ratio Glucose POC Glucose 172 H Calculated Osmolality Calcium Magnesium Total Bilirubin AST ALT Alkaline Phosphatase Troponin I B-Natriuretic Peptide Total Protein Albumin Globulin Albumin/Globulin Ratio Triglycerides Cholesterol LDL Cholesterol VLDL Cholesterol HDL Cholesterol Heart Disease Risk Ratio Free T4 TSH 3rd Generation Urine Color Yellow Urine Appearance Clear Urine pH 5.0 Ur Specific [place] 1.009 Urine Protein >=500 Urine Glucose (UA) 150 Urine Ketones Negative Urine Blood Small Urine Nitrate Negative Urine Bilirubin Negative Urine Urobilinogen < 2.0 H Urine Leukocytes Negative Urine RBC 8 Urine WBC 4 Ur Squamous Epith Cells Occasional Urine Bacteria Occasional Hyaline Casts 16 Urine Mucus Occasional Ur Culture Indicated? Not indicated Urine Opiates Screen Negative Ur Barbiturates Screen Negative Ur Phencyclidine Scrn Negative U Amphetamine/Methamph Negative U Benzodiazepines Scrn Negative U Cocaine Metab Screen Negative U Cannabinoids Screen Negative 01/06/17 01/07/17 01/07/17 23:29 03:01 07:15 WBC RBC Hgb Hct MCV MCH MCHC RDW Plt Count MPV Neut % (Auto) Lymph % (Auto) [place] % (Auto) Eos % (Auto) Baso % (Auto) Neut # (Auto) Lymph # (Auto) [place] # (Auto) Eos # (Auto) Baso # (Auto) Immature Gran % Nucleated RBC % Immature Gran # Nucleated RBCs # Immature Plt Fraction Sodium 141 Potassium 3.6 Chloride 108 H Carbon Dioxide 26 Anion Gap 10.6 BUN 30 H Creatinine 2.10 H GFR Calculation 31 BUN/Creatinine Ratio 14.00 Glucose 226 H POC Glucose Calculated Osmolality 293.3 Calcium 8.7 Magnesium Total Bilirubin AST ALT Alkaline Phosphatase Troponin I 0.043 0.047 H B-Natriuretic Peptide Total Protein Albumin Globulin Albumin/Globulin Ratio Triglycerides 133 Cholesterol 344 H LDL Cholesterol 229.0 VLDL Cholesterol 26.6 HDL Cholesterol 87 H Heart Disease Risk Ratio 3.95 Free T4 0.95 TSH 3rd Generation 2.550 Urine Color Urine Appearance Urine pH Ur Specific [place] Urine Protein Urine Glucose (UA) Urine Ketones Urine Blood Urine Nitrate Urine Bilirubin Urine Urobilinogen Urine Leukocytes Urine RBC Urine WBC Ur Squamous Epith Cells Urine Bacteria Hyaline Casts Urine Mucus Ur Culture Indicated? Urine Opiates Screen Ur Barbiturates Screen Ur Phencyclidine Scrn U Amphetamine/Methamph U Benzodiazepines Scrn U Cocaine Metab Screen U Cannabinoids Screen 01/07/17 01/07/17 01/07/17 07:16 07:17 07:51 WBC 4.8 RBC 3.97 Hgb 11.1 L Hct 33.4 L MCV 84.1 L MCH 28 MCHC 33.2 RDW 18.6 H Plt Count 213 MPV 12.2 H Neut % (Auto) 67.0 Lymph % (Auto) 22.1 [place] % (Auto) 7.4 Eos % (Auto) 2.3 Baso % (Auto) 0.8 Neut # (Auto) 3.2 Lymph # (Auto) 1.1 L [place] # (Auto) 0.4 Eos # (Auto) 0.1 Baso # (Auto) 0.0 Immature Gran % 0.4 Nucleated RBC % 0.4 Immature Gran # 0.02 Nucleated RBCs # 0.02 Immature Plt Fraction 0.0 Sodium Potassium Chloride Carbon Dioxide Anion Gap BUN Creatinine GFR Calculation BUN/Creatinine Ratio Glucose POC Glucose 265 H Calculated Osmolality Calcium Magnesium Total Bilirubin AST ALT Alkaline Phosphatase Troponin I B-Natriuretic Peptide 838 H Total Protein Albumin Globulin Albumin/Globulin Ratio Triglycerides Cholesterol LDL Cholesterol VLDL Cholesterol HDL Cholesterol Heart Disease Risk Ratio Free T4 TSH 3rd Generation Urine Color Urine Appearance Urine pH Ur Specific [place] Urine Protein Urine Glucose (UA) Urine Ketones Urine Blood Urine Nitrate Urine Bilirubin Urine Urobilinogen Urine Leukocytes Urine RBC Urine WBC Ur Squamous Epith Cells Urine Bacteria Hyaline Casts Urine Mucus Ur Culture Indicated? Urine Opiates Screen Ur Barbiturates Screen Ur Phencyclidine Scrn U Amphetamine/Methamph U Benzodiazepines Scrn U Cocaine Metab Screen U Cannabinoids Screen
[2017-01-07] MEDS: ASPIRIN EC 325 MG TABLET PO SCH (10:11)
[2017-01-07] MEDS: ISOSORBIDE MONONITRATE 30 MG TABLET PO SCH (10:11)
[2017-01-07] MEDS: INSULIN LISPRO 100 UNIT/ML SUBCUT SCH ×4 (10:12→21:54)
[2017-01-07] MEDS: GABAPENTIN 100 MG CAPSULE PO SCH ×2 (10:12→21:53)
[2017-01-07] MEDS: CARVEDILOL 12.5 MG TABLET PO SCH (10:12)
[2017-01-07] MEDS: ASCORBIC ACID 500 MG TABLET PO SCH ×2 (10:12→21:51)
[2017-01-07] MEDS: POTASSIUM CHLORIDE 20 MEQ TABLET PO PRN ×2 (10:12→15:39)
[2017-01-07] MEDS: BUDESONIDE/FORMOTEROL 160-4.5 INHALER 6 GM INH SCH ×2 (10:13→21:55)
[2017-01-07] MEDS: FUROSEMIDE 40 MG/4 ML VIAL IV SCH ×2 (10:13→15:39)
--- NOTE | 2017-01-07 10:29 | Hospitalist Progress Note ---
Assessment and Plan (1) Sleep apnea Status: Chronic Current Visit: No (2) Diabetes Problem details: Continue home meds Status: Chronic Assessment and plan: Her glucose this morning is 226. She continues on sliding scale regular insulin coverage. Current Visit: No Qualifiers: Diabetes mellitus type: type 2 Diabetes mellitus complication status: without complication (3) Acute on chronic combined systolic (congestive) and diastolic (congestive) heart failure Status: Acute Current Visit: Yes (4) Chronic kidney disease Status: Chronic Assessment and plan: She has a previously known history of stage III to stage IV chronic kidney disease. Current Visit: No Qualifiers: Chronic kidney disease stage: stage 3 (moderate) Qualified Code(s): N18.3 - Chronic kidney disease, stage 3 (moderate) (5) Cardiomyopathy Status: Chronic Assessment and plan: She has previous history of dilated cardiomyopathy with LVEF 35%. Current Visit: No Qualifiers: Cardiomyopathy type: unspecified Qualified Code(s): I42.9 - Cardiomyopathy , unspecified (6) Hypertension Status: Acute Assessment and plan: Blood pressure today is 154/93. Current Visit: Yes Qualifiers: Hypertension type: essential hypertension Qualified Code(s): I10 - Essential (primary) hypertension (7) Severe mitral regurgitation Status: Chronic Current Visit: No Hospitalist: Subjective Interval history: Patient is comfortable today with no chest pain or shortness of breath. She has been seen in consultation by cardiology who is recommended that she undergo cardiac catheterization. Exam - Constitutional Vitals: Period Temp Pulse Resp BP Sys/[place] Pulse Ox Last 24 Hr 97.1 F-98.1 F 67-75 16-20 145-186/83-118 90-100 General appearance: no acute distress - Head Head exam: Present: normal inspection - Neck Neck exam: Present: normal inspection - Respiratory Respiratory exam: Present: clear to auscultation bilaterally - Cardiovascular Cardiovascular exam: Present: regular rate and rhythm - GI/Abdominal GI/Abdominal exam: Present: normal bowel sounds, soft, other (Nontender with no palpable masses or hepatosplenomegaly.) - Extremities Exam Extremities exam: Present: normal inspection - Skin Skin exam: Present: normal color, warm, intact Results - Labs CBC & BMP: 01/07/17 07:16 01/07/17 07:15
[2017-01-07 11:56] LABS: INR 1.1; PT Patient Result 11.1 SECS; Partial Thromboplastin Time 27.7 SECS (0-40)
--- NOTE | 2017-01-07 14:34 | Ultrasound Report ---
Venous Doppler ultrasound bilateral lower extremities Indication: Edema Comparison: None available Findings: No evidence of echogenic, noncompressible thrombus seen in the visualized veins of the extremities. Color Doppler venous waveform pattern is within normal limits. Impression: No evidence of deep venous thrombosis. Ultrasound images stored and captured. PROCEDURE INTERPRETED AT [facility] DEPARTMENT OF RADIOLOGY Final Report Signed by: Dr. Kimani Garcia
[2017-01-07] MEDS ORDERED: hydrALAZINE 25 MG TABLET PO SCH (15:00)
--- NOTE | 2017-01-07 15:32 | Order Completion Report ---
See report scanned to EMR
[2017-01-07] MEDS: PANTOPRAZOLE 40 MG TABLET PO SCH (15:39)
--- NOTE | 2017-01-07 16:41 | Order Completion Report ---
See report scanned to EMR
--- NOTE | 2017-01-07 17:47 | Event Note ---
I discussed this patient with Dr. Pereira. I reviewed the chart, and interviewed the patient. She reports that she will be able and willing to undergo medical compliance should she require PCI. We are going to proceed with left and right heart catheterization tomorrow. I have discussed the role, risks and benefits and emphasized the risk of acute on chronic renal failure given her underlying renal insufficiency.
[2017-01-07] MEDS ORDERED: POTASSIUM CHLORIDE RIDER 10 MEQ in PREMIX 1 EACH IV PRN (17:48)
[2017-01-07] MEDS ORDERED: DIAZEPAM 5 MG TABLET PO ONE (17:48)
[2017-01-07] MEDS ORDERED: MAGNESIUM SULF RIDER 2 GM in PREMIX 1 EACH IV PRN (17:48)
[2017-01-07] MEDS ORDERED: diphenhydrAMINE CAP 25 MG CAPSULE PO ONE (17:48)
--- NOTE | 2017-01-07 21:50 | Order Completion Report ---
See report scanned to EMR
[2017-01-07] MEDS: ATORVASTATIN 40 MG TABLET PO SCH (21:51)
[2017-01-07] MEDS: ENOXAPARIN 30 MG/0.3 ML SYRINGE SUBCUT SCH (21:53)
[2017-01-07] MEDS: INSULIN GLARGINE 100 UNIT/ML SUBCUT SCH (21:54)
[2017-01-08 03:36] LABS: Basophils % 0.5 % (0.0-0.8); Eosinophils # 0.1 10*3/uL (0.0-0.87); Eosinophils % 2.3 % (0.00-10.9); Hematocrit 30.8 VOL% (35.7-47.0); Hemoglobin 9.7 GM/DL (12.0-16.0); Immature Granulocytes % 0.5 %; Immature Granulocytes Absolute 0.03 #; Lymphocytes # 1.1 10*3/uL (1.4-4.0); Lymphocytes % 19.8 % (21.3-54.2); Mean Corpuscular HGB Conc 31.5 GM/DL (32-36); Mean Corpuscular Hemoglobin 27 PG (27-34); Mean Corpuscular Volume 86.5 FL (87-102); Mean Platelet Volume 12.4 FL (9.6-12.0); Monocytes # 0.6 10*3/uL (0.11-0.8); Monocytes % 10.7 % (1.7-12.7); NRBC # 0.02 10*3/uL; Neutrophils # 3.7 10*3/uL (1.4-7.4); Neutrophils % 66.2 % (38.7-73.9); Platelet Count 190 T/CUMM (130-400); Red Blood Count 3.56 MC/CUMM (3.8-5.5); Red Cell Distribution Width 18.5 % (9.3-17.3); White Blood Count 5.6 T/CUMM (4-12)
[2017-01-08 04:13] LABS: Calcium 8.1 MG/DL (8.5-10.1); Osmolality,Calculated 297.3 MOS/KG (273-304); Potassium 3.8 MMOL/L (3.5-5.1)
[2017-01-08] MEDS: ASPIRIN EC 325 MG TABLET PO SCH (09:24)
[2017-01-08] MEDS: CARVEDILOL 12.5 MG TABLET PO SCH (09:25)
[2017-01-08] MEDS: BUDESONIDE/FORMOTEROL 160-4.5 INHALER 6 GM INH SCH ×2 (09:25→21:52)
[2017-01-08] MEDS: GABAPENTIN 100 MG CAPSULE PO SCH ×2 (09:25→21:52)
[2017-01-08] MEDS: ISOSORBIDE MONONITRATE 30 MG TABLET PO SCH (09:25)
[2017-01-08] MEDS: ASCORBIC ACID 500 MG TABLET PO SCH ×2 (09:25→21:51)
[2017-01-08] MEDS ORDERED: diphenhydrAMINE CAP 25 MG CAPSULE PO ONE (09:30)
[2017-01-08] MEDS: INSULIN LISPRO 100 UNIT/ML SUBCUT SCH ×4 (09:30→21:53)
[2017-01-08] MEDS ORDERED: DIAZEPAM 5 MG TABLET PO ONE (09:30)
[2017-01-08] MEDS ORDERED: fentaNYL 100 MCG/2 ML VIAL ONE (10:39)
[2017-01-08] MEDS ORDERED: MIDAZOLAM 2 MG/2 ML VIAL ONE (10:39)
[2017-01-08] MEDS ORDERED: HEPARIN/NACL 0.9% 2 UNITS/ML 1,000 ML IV ONE (10:39)
[2017-01-08] MEDS ORDERED: LIDOCAINE 1% 20 ML VIAL ONE (10:39)
--- NOTE | 2017-01-08 11:14 | Hospitalist Progress Note ---
Assessment and Plan (1) Sleep apnea Status: Chronic Current Visit: No (2) Diabetes Problem details: Continue home meds Status: Chronic Assessment and plan: Her glucose this morning is 171. She continues on sliding scale regular insulin coverage. Current Visit: No Qualifiers: Diabetes mellitus type: type 2 Diabetes mellitus complication status: without complication (3) Acute on chronic combined systolic (congestive) and diastolic (congestive) heart failure Status: Acute Current Visit: Yes (4) Chronic kidney disease Status: Chronic Assessment and plan: She has a previously known history of stage III to stage IV chronic kidney disease. Her BUN and creatinine today are 32 and 2.3 respectively. Current Visit: No Qualifiers: Chronic kidney disease stage: stage 3 (moderate) Qualified Code(s): N18.3 - Chronic kidney disease, stage 3 (moderate) (5) Cardiomyopathy Status: Chronic Assessment and plan: She has previous history of dilated cardiomyopathy with LVEF 35%. Current Visit: No Qualifiers: Cardiomyopathy type: unspecified Qualified Code(s): I42.9 - Cardiomyopathy , unspecified (6) Hypertension Status: Acute Assessment and plan: Blood pressure today is 144/95. Current Visit: Yes Qualifiers: Hypertension type: essential hypertension Qualified Code(s): I10 - Essential (primary) hypertension (7) Severe mitral regurgitation Status: Chronic Current Visit: No Hospitalist: Subjective Interval history: Patient has no new complaints today. She is not experiencing chest pain or shortness of breath. She is to undergo cardiac catheterization today. Exam - Constitutional Vitals: Period Temp Pulse Resp BP Sys/De [place] Garza Pulse Ox Last 24 Hr 97.1 F-99.2 F 60-76 16-20 144-162/79-95 90-98 General appearance: no acute distress - Head Head exam: Present: normal inspection - Neck Neck exam: Present: normal inspection - Respiratory Respiratory exam: Present: clear to auscultation bilaterally - Cardiovascular Cardiovascular exam: Present: regular rate and rhythm - GI/Abdominal GI/Abdominal exam: Present: normal bowel sounds, soft, other (Nontender with no palpable masses or hepatosplenomegaly.) - Extremities Exam Extremities exam: Present: normal inspection - Skin Skin exam: Present: normal color, warm, intact Results - Labs CBC & BMP: 01/08/17 03:01 01/08/17 03:01
[2017-01-08] MEDS ORDERED: SODIUM BICARB INJ 100 MEQ in SODIUM CHLORIDE 0.45% 1,000 ML IV SCH (12:00)
[2017-01-08] MEDS: PANTOPRAZOLE 40 MG TABLET PO SCH (18:36)
[2017-01-08] MEDS: ACETAMINOPHEN 325 MG TABLET PO PRN (18:42)
[2017-01-08] MEDS: ATORVASTATIN 40 MG TABLET PO SCH (21:51)
[2017-01-08] MEDS: ENOXAPARIN 30 MG/0.3 ML SYRINGE SUBCUT SCH (21:52)
[2017-01-08] MEDS: INSULIN GLARGINE 100 UNIT/ML SUBCUT SCH (21:54)
[2017-01-09] MEDS: ACETAMINOPHEN 325 MG TABLET PO PRN (03:05)
[2017-01-09 04:40] LABS: Basophils % 0.7 % (0.0-0.8); Eosinophils # 0.1 10*3/uL (0.0-0.87); Eosinophils % 1.9 % (0.00-10.9); Hemoglobin 10.6 GM/DL (12.0-16.0); Immature Granulocytes % 0.3 %; Immature Granulocytes Absolute 0.02 #; Lymphocytes # 1.1 10*3/uL (1.4-4.0); Lymphocytes % 18.9 % (21.3-54.2); Mean Corpuscular HGB Conc 32.1 GM/DL (32-36); Mean Corpuscular Hemoglobin 28 PG (27-34); Mean Corpuscular Volume 86.4 FL (87-102); Mean Platelet Volume 12.5 FL (9.6-12.0); Monocytes # 0.5 10*3/uL (0.11-0.8); NRBC # 0.02 10*3/uL; Neutrophils # 4.1 10*3/uL (1.4-7.4); Neutrophils % 70.2 % (38.7-73.9); Platelet Count 203 T/CUMM (130-400); Red Blood Count 3.82 MC/CUMM (3.8-5.5); Red Cell Distribution Width 18.6 % (9.3-17.3); White Blood Count 5.8 T/CUMM (4-12)
[2017-01-09 05:16] LABS: Calcium 8.6 MG/DL (8.5-10.1); Magnesium 2.2 MG/DL (1.8-2.4); Osmolality,Calculated 289.4 MOS/KG (273-304); Potassium 3.9 MMOL/L (3.5-5.1)
[2017-01-09] MEDS: INSULIN LISPRO 100 UNIT/ML SUBCUT SCH ×4 (07:56→21:56)
[2017-01-09] MEDS: GABAPENTIN 100 MG CAPSULE PO SCH ×2 (09:10→21:56)
[2017-01-09] MEDS: ASPIRIN EC 325 MG TABLET PO SCH (09:10)
[2017-01-09] MEDS: ISOSORBIDE MONONITRATE 30 MG TABLET PO SCH ×2 (09:10→12:32)
[2017-01-09] MEDS: ASCORBIC ACID 500 MG TABLET PO SCH ×2 (09:10→21:55)
[2017-01-09] MEDS: BUDESONIDE/FORMOTEROL 160-4.5 INHALER 6 GM INH SCH ×2 (09:10→21:57)
[2017-01-09] MEDS: CARVEDILOL 12.5 MG TABLET PO SCH ×3 (09:10→22:00)
--- NOTE | 2017-01-09 11:25 | Hospitalist Progress Note ---
Assessment and Plan (1) Sleep apnea Status: Chronic Current Visit: No (2) Diabetes Problem details: Continue home meds Status: Chronic Assessment and plan: Her glucose this morning is 123. She continues on sliding scale regular insulin coverage. Current Visit: No Qualifiers: Diabetes mellitus type: type 2 Diabetes mellitus complication status: without complication (3) Acute on chronic combined systolic (congestive) and diastolic (congestive) heart failure Status: Acute Assessment and plan: He is stable with no evidence of active congestive heart failure. Current Visit: Yes (4) Chronic kidney disease Status: Chronic Assessment and plan: She has a previously known history of stage III to stage IV chronic kidney disease. Her BUN and creatinine today are 32 and 2.2 respectively. Current Visit: No Qualifiers: Chronic kidney disease stage: stage 3 (moderate) Qualified Code(s): N18.3 - Chronic kidney disease, stage 3 (moderate) (5) Cardiomyopathy Status: Chronic Assessment and plan: She has previous history of dilated cardiomyopathy with LVEF 35%. She is not on an ghassan inhibitor or an ARB because of her severe chronic kidney disease. Current Visit: No Qualifiers: Cardiomyopathy type: unspecified Qualified Code(s): I42.9 - Cardiomyopathy , unspecified (6) Hypertension Status: Acute Assessment and plan: Blood pressure today is 146/87. I will increase her hydralazine. Current Visit: Yes Qualifiers: Hypertension type: essential hypertension Qualified Code(s): I10 - Essential (primary) hypertension (7) Severe mitral regurgitation Status: Chronic Current Visit: No Hospitalist: Subjective Interval history: Ms. Bethea is doing well. She has no complaints. She is not experiencing chest pain or shortness of breath. She states that she was told by cardiology that she might require stent and would possibly need to go to [facility] for that procedure. I await the recommendations of cardiology. Exam - Constitutional Vitals: Period Temp Pulse Resp BP Sys/De [place] Garza Pulse Ox Last 24 Hr 96.4 F-97.9 F 61-91 18-18 139-165/86-102 89-96 General appearance: no acute distress - Head Head exam: Present: normal inspection - Neck Neck exam: Present: normal inspection - Respiratory Respiratory exam: Present: clear to auscultation bilaterally - Cardiovascular Cardiovascular exam: Present: regular rate and rhythm - GI/Abdominal GI/Abdominal exam: Present: normal bowel sounds, soft - Extremities Exam Extremities exam: Present: normal inspection - Skin Skin exam: Present: normal color, warm, intact Results - Labs CBC & BMP: 01/09/17 04:10 01/09/17 04:10 Specialty Discharge - Follow Up or Referrals
--- NOTE | 2017-01-09 12:43 | Cardiology Progress Note ---
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 Chronic kidney disease stage: stage 4 (severe) (3) CHF (congestive heart failure) Problem details: chronic renal insufficiency, valvular heart disease with mitral regurgitation Status: Acute Current Visit: No Qualifiers: Congestive heart failure type: systolic Congestive heart failure chronicity : acute on chronic Qualified Code(s): I50.23 - Acute on chronic systolic ( congestive) heart failure (4) Mitral regurgitation Problem details: Severe Status: Chronic Current Visit: Yes (5) Chest pain Status: Acute Current Visit: Yes (6) Pulmonary hypertension Status: Chronic Current Visit: Yes Cardiology - PN: Subj Interval history: SITE SPECIALIST: Dr. Pereira CAMERA REPAIRMAN: Dr. Warren Summary: Ms. Bethea is a 51 year old female without known history of coronary artery disease, who has not followed up in the cardiology clinic but has had frequent admissions for recurrent congestive heart failure. Noncompliant. Patient has cardiac risk factors significant for diabetes, hypertension, current everyday smoker and sedentary lifestyle. Patient has a past medical history of diastolic (grade 1 dysfunction) and systolic heart failure (most recent ejection fraction June 2016 revealed ejection fraction of 35-40%, July 2015 her ejection fraction was 55%), chronic kidney disease (routinely followed by Dr. Warren), severe mitral regurgitation, anemia, asthma and neuropathy. She had a right heart catheterization per Dr. Leo July 2015. This revealed pulmonary hypertension. Right atrial pressure 17 mmHg, right ventricular pressure 48/19 mmHg, pulmonary capillary wedge pressure 26 mmHg and PAP 55/36 with a mean of 45 mmHg. At that time, they plan for left heart catheterization when renal function was optimized. She has not demonstrated compliance with her follow-through and has therefore not undergone cardiac catheterization. Admitted now January 06, 2017 with complaints of left arm and jaw pain, bilateral lower extremity edema. She underwent cardiac catheterization January 08, 2017 demonstrating diffuse circumflex disease along the AV groove portion of the vessel which is going to be medically managed, as well as severe mitral regurgitation and peripheral vascular disease in the right lower extremity. IMPRESSION AND PLAN: 1. CHF - Acute on chronic CHF, etiology is combined systolic and diastolic dysfunction LVEF (35%-40%), severe MR and non-compliance. NYHA Class III-IV. Patient has been hospitalized frequently for recurrent congestive heart failure. Avoiding JOSELIN inhibitor/ARB due to fear of worsening renal function. Continue afterload reduction with hydralazine and Imdur, and I am going to increase her hydralazine today. Continue beta-blockade. We are going to see her back in clinic and will make a referral to Dr. Dc Abdi in [place] to evaluate for possible mitral valve clip given her comorbidities. 2. CARDIOMYOPATHY, EF 25% -this is a mixed ischemic and nonischemic, predominantly nonischemic cardiomyopathy. Clinically she is feeling improved and we will continue to diurese her. She is not on JOSELIN inhibitor due to her underlying renal insufficiency but we will afterload certified dietary manager with hydralazine and nitrates. See discussion above. 3. PULMONARY HYPERTENSION - Continue current plan of care 4. DYSLIPIDEMIA - Lipid panel reviewed. LDL 229. High intensity statin. 5. CHRONIC KIDNEY DISEASE - Stage III. Creatinine 2.0 upon admission. This is actually improved from previous admissions. Will monitor with daily BMP. 6. NON-COMPLIANCE - Reiterated importance of compliance 7. SEVERE MITRAL REGURGITATION - Severe. Given her comorbidities will have her evaluated for possible mitral clip. This will be done on outpatient basis since we have been able to improve her heart failure. 8. DIABETES - Management per attending. 9. ANEMIA - Chronic. Stable. Continue to follow with daily CBC. 10. ASTHMA - Chronic, stable. 11. Coronary artery disease- Cardiac biomarkers negative 3. EKG reveals T- wave abnormality in inferior leads. Continue aspirin, beta-blockade and nitrates. 12. HYPERTENSION - Will monitor blood pressure and adjust medications accordingly. 13. BILATERAL LOWER EXTREMITY EDEMA - Chronic. Will order venous Dopplers to rule out DVT. 14. Peripheral vascular disease-this is present in the right lower extremity and may need to be addressed prior to her ability to receive a clip. Again we will have this evaluated in [place]. 15. Right femoral bruit-I suspect this is secondary to her PVD but we will check an ultrasound to rule out vascular complications. CC: Olivier Juarez Exam (Progress Note) - Constitutional Vitals: Period Temp Pulse Resp BP Sys/De La Garza Pulse Ox Last 24 Hr 96.4 F-98.1 F 61-91 18-18 139-163/83-102 89-95 Exam: General appearance: normal weight, no acute distress - Head Head exam: Present: normal inspection, normocephalic, atraumatic. Absent: hematoma, laceration - Eye Eye exam: Present: EOMI. Absent: conjunctival injection, nystagmus, periorbital swelling, scleral icterus, laceration to eyelids Pupils: Present: PERRL. Absent: constricted, dilated, fixed, irregular, unequal - ENT ENT exam: Present: normal exam, normal external ear exam - Neck Neck exam: Present: normal inspection. Absent: lymphadenopathy, meningismus, tenderness, thyromegaly - Respiratory Respiratory exam: Present: clear to auscultation bilaterally. Absent: accessory muscle use, chest wall tenderness - Cardiovascular Cardiovascular exam: Present: regular rate and rhythm with a soft 2/6 holosystolic murmur loudest at the apex. Absent: carotid bruit, gallop, JVD, rubs - GI/Abdominal GI/Abdominal exam: Present: normal bowel sounds, soft. Absent: distended, firm , guarding, hernia, mass, tenderness, rebound. - Extremities Exam Extremities exam: Present: Right groin is without hematoma or ecchymosis, but a soft bruit is auscultated. Pulse is 2+.. Absent: calf tenderness, edema - Back Exam Back exam: Present: normal inspection. Absent: muscle spasm, vertebral tenderness - Neurological Exam Neurological exam: Present: alert, oriented X3, grossly intact without resting or intention tremor - Psychiatric Psychiatric exam: Present: normal affect, normal mood - Skin Skin exam: Present: normal color, warm, dry, intact. Absent: cyanosis, diaphoretic, rash, urticaria Result/EKG - Labs CBC & BMP: 01/09/17 04:10 01/09/17 04:10 Lab Results: I have reviewed the past 24 hour labs Labs: Laboratory Results - last 24 hr 01/08/17 01/08/17 01/08/17 13:12 16:37 20:51 WBC RBC Hgb Hct MCV MCH MCHC RDW Plt Count MPV Neut % (Auto) Lymph % (Auto) [place] % (Auto) Eos % (Auto) Baso % (Auto) Neut # (Auto) Lymph # (Auto) [place] # (Auto) Eos # (Auto) Baso # (Auto) Immature Gran % Nucleated RBC % Immature Gran # Nucleated RBCs # Immature Plt Fraction Sodium Potassium Chloride Carbon Dioxide Anion Gap BUN Creatinine GFR Calculation BUN/Creatinine Ratio Glucose POC Glucose 87 186 H 246 H Calculated Osmolality Calcium Magnesium 01/09/17 01/09/17 01/09/17 04:10 04:10 04:21 WBC 5.8 RBC 3.82 Hgb 10.6 L Hct 33.0 L MCV 86.4 L MCH 28 MCHC 32.1 RDW 18.6 H Plt Count 203 MPV 12.5 H Neut % (Auto) 70.2 Lymph % (Auto) 18.9 L [place] % (Auto) 8.0 Eos % (Auto) 1.9 Baso % (Auto) 0.7 Neut # (Auto) 4.1 Lymph # (Auto) 1.1 L [place] # (Auto) 0.5 Eos # (Auto) 0.1 Baso # (Auto) 0.0 Immature Gran % 0.3 Nucleated RBC % 0.3 Immature Gran # 0.02 Nucleated RBCs # 0.02 Immature Plt Fraction 0.0 Sodium 140 Potassium 3.9 Chloride 105 Carbon Dioxide 26 Anion Gap 12.9 BUN 32 H Creatinine 2.20 H GFR Calculation 30 BUN/Creatinine Ratio 14.00 Glucose 167 H POC Glucose 201 H Calculated Osmolality 289.4 Calcium 8.6 Magnesium 2.2 01/09/17 01/09/17 07:01 11:02 WBC RBC Hgb Hct MCV MCH MCHC RDW Plt Count MPV Neut % (Auto) Lymph % (Auto) [place] % (Auto) Eos % (Auto) Baso % (Auto) Neut # (Auto) Lymph # (Auto) [place] # (Auto) Eos # (Auto) Baso # (Auto) Immature Gran % Nucleated RBC % Immature Gran # Nucleated RBCs # Immature Plt Fraction Sodium Potassium Chloride Carbon Dioxide Anion Gap BUN Creatinine GFR Calculation BUN/Creatinine Ratio Glucose POC Glucose 123 H 188 H Calculated Osmolality Calcium Magnesium Specialty Discharge - Follow Up or Referrals
[2017-01-09] MEDS: PANTOPRAZOLE 40 MG TABLET PO SCH (16:44)
--- NOTE | 2017-01-09 18:48 | Ultrasound Report ---
Limited right groin ultrasound January 09, 2017 Indication: Postop catheterization, evaluate for aneurysm Comparison images not available Technique: Limited byrd scale sonogram of the right groin was performed utilizing color Doppler with image capture Findings: Vascular structures are intact. No aneurysm formation. No findings to suggest AV fistula. No soft tissue solid or cystic mass lesions. No significant edema. Impression: Normal right groin ultrasound PROCEDURE INTERPRETED AT [facility] DEPARTMENT OF RADIOLOGY Final Report Signed by: Marbin Byrd MD
[2017-01-09] MEDS: ATORVASTATIN 40 MG TABLET PO SCH (21:55)
[2017-01-09] MEDS: INSULIN GLARGINE 100 UNIT/ML SUBCUT SCH (21:56)
[2017-01-09] MEDS: ENOXAPARIN 30 MG/0.3 ML SYRINGE SUBCUT SCH (22:00)
[2017-01-10 05:01] LABS: Basophils % 0.4 % (0.0-0.8); Eosinophils # 0.1 10*3/uL (0.0-0.87); Eosinophils % 2.1 % (0.00-10.9); Hematocrit 31.4 VOL% (35.7-47.0); Hemoglobin 10.1 GM/DL (12.0-16.0); Immature Granulocytes % 0.2 %; Immature Granulocytes Absolute 0.01 #; Lymphocytes # 1.2 10*3/uL (1.4-4.0); Lymphocytes % 23.2 % (21.3-54.2); Mean Corpuscular HGB Conc 32.2 GM/DL (32-36); Mean Corpuscular Hemoglobin 28 PG (27-34); Mean Platelet Volume 12.8 FL (9.6-12.0); Monocytes # 0.6 10*3/uL (0.11-0.8); Monocytes % 10.5 % (1.7-12.7); NRBC # 0.02 10*3/uL; Neutrophils # 3.4 10*3/uL (1.4-7.4); Neutrophils % 63.6 % (38.7-73.9); Platelet Count 202 T/CUMM (130-400); Red Blood Count 3.65 MC/CUMM (3.8-5.5); Red Cell Distribution Width 18.6 % (9.3-17.3); White Blood Count 5.3 T/CUMM (4-12)
[2017-01-10 05:27] LABS: Calcium 8.6 MG/DL (8.5-10.1); Magnesium 2.2 MG/DL (1.8-2.4); Potassium 3.6 MMOL/L (3.5-5.1)
[2017-01-10] MEDS: INSULIN LISPRO 100 UNIT/ML SUBCUT SCH ×4 (07:51→21:28)
[2017-01-10] MEDS: GABAPENTIN 100 MG CAPSULE PO SCH ×2 (08:15→21:27)
[2017-01-10] MEDS: CARVEDILOL 12.5 MG TABLET PO SCH ×2 (08:15→21:30)
[2017-01-10] MEDS: ASCORBIC ACID 500 MG TABLET PO SCH ×2 (08:15→21:31)
[2017-01-10] MEDS: ISOSORBIDE MONONITRATE 30 MG TABLET PO SCH (08:15)
[2017-01-10] MEDS: ASPIRIN EC 325 MG TABLET PO SCH (08:15)
[2017-01-10] MEDS: BUDESONIDE/FORMOTEROL 160-4.5 INHALER 6 GM INH SCH ×2 (08:16→21:31)
[2017-01-10] MEDS ORDERED: MAGNESIUM HYDROXIDE SUSP 30 ML UDCUP PO ONE (09:04)
[2017-01-10] MEDS: DOCUSATE SODIUM 100 MG CAPSULE PO SCH ×2 (09:30→21:27)
--- NOTE | 2017-01-10 10:07 | Hospitalist Progress Note ---
Assessment and Plan (1) Sleep apnea Status: Chronic Current Visit: No (2) Diabetes Problem details: Continue home meds Status: Chronic Assessment and plan: Her glucose this morning is 96. She continues on sliding scale regular insulin coverage. Current Visit: No Qualifiers: Diabetes mellitus type: type 2 Diabetes mellitus complication status: without complication (3) Acute on chronic combined systolic (congestive) and diastolic (congestive) heart failure Status: Acute Assessment and plan: She is stable with no evidence of active congestive heart failure. Current Visit: Yes (4) Chronic kidney disease Status: Chronic Assessment and plan: She has a previously known history of stage III to stage IV chronic kidney disease. Her BUN and creatinine today are 33 and 2.1 respectively. Current Visit: No Qualifiers: Chronic kidney disease stage: stage 3 (moderate) Qualified Code(s): N18.3 - Chronic kidney disease, stage 3 (moderate) (5) Cardiomyopathy Status: Chronic Assessment and plan: She has previous history of dilated cardiomyopathy with LVEF 25%. She is not on an ghassan inhibitor or an ARB because of her severe chronic kidney disease. Current Visit: No Qualifiers: Cardiomyopathy type: unspecified Qualified Code(s): I42.9 - Cardiomyopathy , unspecified (6) Hypertension Status: Acute Assessment and plan: Blood pressure today is 96/63. She is on maximal medical therapy. Current Visit: Yes Qualifiers: Hypertension type: essential hypertension Qualified Code(s): I10 - Essential (primary) hypertension (7) Severe mitral regurgitation Status: Chronic Assessment and plan: She is to be referred to [facility] to undergo mitral valve clip. Current Visit: No Hospitalist: Subjective Interval history: Patient is comfortable with no complaints. She is not experiencing shortness of breath or chest pain. She is to be referred as an outpatient to [facility] for mitral valave clip for severe mitral insufficiency. If cardiology is in agreement, she will be discharged tomorrow morning. Exam - Constitutional Vitals: Period Temp Pulse Resp BP Sys/De La Garza Pulse Ox Last 24 Hr 97.3 F-98.6 F 67-79 16-18 96-175/63-101 87-93 General appearance: no acute distress - Head Head exam: Present: normal inspection - Neck Neck exam: Present: normal inspection - Respiratory Respiratory exam: Present: clear to auscultation bilaterally - Cardiovascular Cardiovascular exam: Present: regular rate and rhythm - GI/Abdominal GI/Abdominal exam: Present: normal bowel sounds, soft, other (Nontender with no palpable masses or hepatosplenomegaly.) - Extremities Exam Extremities exam: Present: normal inspection - Skin Skin exam: Present: normal color, warm, intact Results - Labs CBC & BMP: 01/10/17 04:09 01/10/17 04:09 Specialty Discharge - Follow Up or Referrals
[2017-01-10] MEDS ORDERED: FUROSEMIDE 40 MG/4 ML VIAL IV ONE (10:17)
--- NOTE | 2017-01-10 15:05 | Cardiology Progress Note ---
Assessment and Plan (1) Hypertension Problem details: Continue home meds Status: Chronic Current Visit: Yes Qualifiers: Hypertension type: essential hypertension Qualified Code(s): I10 - Essential (primary) hypertension (2) Diabetes mellitus Status: Chronic Current Visit: Yes Qualifiers: Diabetes mellitus type: type 2 Diabetes mellitus complication detail: with chronic kidney disease Diabetes mellitus fci insulin use: with local intermodal truck driver use Chronic kidney disease stage: stage 4 (severe) (3) CHF (congestive heart failure) Problem details: chronic renal insufficiency, valvular heart disease with mitral regurgitation Status: Acute Current Visit: No Qualifiers: Congestive heart failure type: systolic Congestive heart failure chronicity : acute on chronic Qualified Code(s): I50.23 - Acute on chronic systolic ( congestive) heart failure (4) Mitral regurgitation Problem details: Severe Status: Chronic Current Visit: Yes (5) Chest pain Status: Acute Current Visit: Yes (6) Pulmonary hypertension Status: Chronic Current Visit: Yes Cardiology - PN: Subj Interval history: ANALOG DEVICE DESIGNER: Dr. Pereira CAREERS ADVISER: Dr. Warren Summary: Ms. Bethea is a 51 year old female without known history of coronary artery disease, who has not followed up in the cardiology clinic but has had frequent admissions for recurrent congestive heart failure. Noncompliant. Patient has cardiac risk factors significant for diabetes, hypertension, current everyday smoker and sedentary lifestyle. Patient has a past medical history of diastolic (grade 1 dysfunction) and systolic heart failure (most recent ejection fraction June 2016 revealed ejection fraction of 35-40%, July 2015 her ejection fraction was 55%), chronic kidney disease (routinely followed by Dr. Warren), severe mitral regurgitation, anemia, asthma and neuropathy. She had a right heart catheterization per Dr. Leo July 2015. This revealed pulmonary hypertension. Right atrial pressure 17 mmHg, right ventricular pressure 48/19 mmHg, pulmonary capillary wedge pressure 26 mmHg and PAP 55/36 with a mean of 45 mmHg. At that time, they plan for left heart catheterization when renal function was optimized. She has not demonstrated compliance with her follow-through and has therefore not undergone cardiac catheterization. Admitted now January 06, 2017 with complaints of left arm and jaw pain, bilateral lower extremity edema. She underwent cardiac catheterization January 08, 2017 demonstrating diffuse circumflex disease along the AV groove portion of the vessel which is going to be medically managed, as well as severe mitral regurgitation and peripheral vascular disease in the right lower extremity. January 10, 2017: Overall evening was uneventful. Her breathing continues to improve. She denies chest pain. She denies groin complaints. Blood pressure is improving although she still has some hypertensive spikes. She did have a right groin bruit yesterday, follow-up ultrasound did not reveal any vascular abnormalities. This is likely from her PVD IMPRESSION AND PLAN: 1. CHF - Acute on chronic CHF, etiology is combined systolic and diastolic dysfunction LVEF (35%-40%), severe MR and non-compliance. NYHA Class III-IV. Patient has been hospitalized frequently for recurrent congestive heart failure. Avoiding JOSELIN inhibitor/ARB due to fear of worsening renal function. Continue afterload reduction with hydralazine and Imdur. Continue beta- blockade. We are going to see her back in clinic and will make a referral to Dr. Dc Abdi in [place] to evaluate for possible mitral valve clip given her comorbidities. 2. CARDIOMYOPATHY, EF 25% -this is a mixed ischemic and nonischemic, predominantly nonischemic cardiomyopathy. Clinically she is feeling improved and we will continue to diurese her. She is not on JOSELIN inhibitor due to her underlying renal insufficiency but we will afterload water carter with hydralazine and nitrates. See discussion above. 3. PULMONARY HYPERTENSION - Continue current plan of care 4. DYSLIPIDEMIA - Lipid panel reviewed. LDL 229. High intensity statin. 5. CHRONIC KIDNEY DISEASE - Stage III. Creatinine 2.0 upon admission. This is actually improved from previous admissions. Will monitor with daily BMP. 6. NON-COMPLIANCE - Reiterated importance of compliance 7. SEVERE MITRAL REGURGITATION - Severe. Given her comorbidities will have her evaluated for possible mitral clip. This will be done on outpatient basis since we have been able to improve her heart failure. 8. DIABETES - Management per attending. 9. ANEMIA - Chronic. Stable. Continue to follow with daily CBC. 10. ASTHMA - Chronic, stable. 11. Coronary artery disease- Cardiac biomarkers negative 3. EKG reveals T- wave abnormality in inferior leads. Continue aspirin, beta-blockade and nitrates. 12. HYPERTENSION - Will monitor blood pressure and adjust medications accordingly. 13. BILATERAL LOWER EXTREMITY EDEMA - Chronic. Will order venous Dopplers to rule out DVT. 14. Peripheral vascular disease-this is present in the right lower extremity and may need to be addressed prior to her ability to receive a clip. Again we will have this evaluated in [place]. 15. Right femoral bruit-I suspect this is secondary to her PVD. Arterial ultrasound was unremarkable. From a cardiac standpoint the patient will be stable for discharge in the a.m. She should follow-up with Dr. Pereira in 2 weeks. If she demonstrates clinical compliance and make this appointment from there she can be referred to [place]. If she does come to these follow-up appointments she will require a defibrillator as well. Exam (Progress Note) - Constitutional Vitals: Period Temp Pulse Resp BP Sys/De La Garza Pulse Ox Last 24 Hr 97.3 F-98.6 F 67-79 16-18 96-175/63-101 87-93 Exam: General appearance: normal weight, no acute distress - Head Head exam: Present: normal inspection, normocephalic, atraumatic. Absent: hematoma, laceration - Eye Eye exam: Present: EOMI. Absent: conjunctival injection, nystagmus, periorbital swelling, scleral icterus, laceration to eyelids Pupils: Present: PERRL. Absent: constricted, dilated, fixed, irregular, unequal - ENT ENT exam: Present: normal exam, normal external ear exam - Neck Neck exam: Present: normal inspection. Absent: lymphadenopathy, meningismus, tenderness, thyromegaly - Respiratory Respiratory exam: Present: clear to auscultation bilaterally. Absent: accessory muscle use, chest wall tenderness - Cardiovascular Cardiovascular exam: Present: regular rate and rhythm with a soft 2/6 holosystolic murmur loudest at the apex. Absent: carotid bruit, gallop, JVD, rubs - GI/Abdominal GI/Abdominal exam: Present: normal bowel sounds, soft. Absent: distended, firm , guarding, hernia, mass, tenderness, rebound. - Extremities Exam Extremities exam: Present: Right groin is without hematoma or ecchymosis, but a soft bruit is auscultated. Pulse is 2+.. Absent: calf tenderness, edema - Back Exam Back exam: Present: normal inspection. Absent: muscle spasm, vertebral tenderness - Neurological Exam Neurological exam: Present: alert, oriented X3, grossly intact without resting or intention tremor - Psychiatric Psychiatric exam: Present: normal affect, normal mood - Skin Skin exam: Present: normal color, warm, dry, intact. Absent: cyanosis, diaphoretic, rash, urticaria Result/EKG - Labs CBC & BMP: 01/10/17 04:09 01/10/17 04:09 Lab Results: I have reviewed the past 24 hour labs Labs: Laboratory Results - last 24 hr 01/09/17 01/09/17 01/10/17 15:12 20:34 04:09 WBC 5.3 RBC 3.65 L Hgb 10.1 L Hct 31.4 L MCV 86.0 L MCH 28 MCHC 32.2 RDW 18.6 H Plt Count 202 MPV 12.8 H Neut % (Auto) 63.6 Lymph % (Auto) 23.2 Lynn % (Auto) 10.5 Eos % (Auto) 2.1 Baso % (Auto) 0.4 Neut # (Auto) 3.4 Lymph # (Auto) 1.2 L Lynn # (Auto) 0.6 Eos # (Auto) 0.1 Baso # (Auto) 0.0 Immature Gran % 0.2 Nucleated RBC % 0.4 Immature Gran # 0.01 Nucleated RBCs # 0.02 Immature Plt Fraction 0.0 Sodium Potassium Chloride Carbon Dioxide Anion Gap BUN Creatinine GFR Calculation BUN/Creatinine Ratio Glucose POC Glucose 178 H 259 H Calculated Osmolality Calcium Magnesium 01/10/17 01/10/17 01/10/17 04:09 07:23 11:28 WBC RBC Hgb Hct MCV MCH MCHC RDW Plt Count MPV Neut % (Auto) Lymph % (Auto) Lynn % (Auto) Eos % (Auto) Baso % (Auto) Neut # (Auto) Lymph # (Auto) Lynn # (Auto) Eos # (Auto) Baso # (Auto) Immature Gran % Nucleated RBC % Immature Gran # Nucleated RBCs # Immature Plt Fraction Sodium 143 Potassium 3.6 Chloride 108 H Carbon Dioxide 25 Anion Gap 13.6 BUN 33 H Creatinine 2.10 H GFR Calculation 31 BUN/Creatinine Ratio 15.00 Glucose 64 L POC Glucose 96 244 H Calculated Osmolality 289.0 Calcium 8.6 Magnesium 2.2 - Diagnostic Findings Procedure: Ultrasound: report reviewed by me Specialty Discharge - Follow Up or Referrals Follow up with: Kel Pereira MD [Physician] - 2 Weeks
[2017-01-10] MEDS: PANTOPRAZOLE 40 MG TABLET PO SCH (16:40)
[2017-01-10] MEDS: ATORVASTATIN 40 MG TABLET PO SCH (21:27)
[2017-01-10] MEDS: INSULIN GLARGINE 100 UNIT/ML SUBCUT SCH (21:27)
[2017-01-10] MEDS: ENOXAPARIN 30 MG/0.3 ML SYRINGE SUBCUT SCH (21:30)
[2017-01-11 05:39] LABS: Basophils % 0.7 % (0.0-0.8); Eosinophils # 0.1 10*3/uL (0.0-0.87); Eosinophils % 2.3 % (0.00-10.9); Hematocrit 31.6 VOL% (35.7-47.0); Immature Granulocytes % 0.3 %; Immature Granulocytes Absolute 0.02 #; Lymphocytes % 16.3 % (21.3-54.2); Mean Corpuscular HGB Conc 31.6 GM/DL (32-36); Mean Corpuscular Hemoglobin 27 PG (27-34); Mean Corpuscular Volume 86.1 FL (87-102); Mean Platelet Volume 12.9 FL (9.6-12.0); Monocytes # 0.6 10*3/uL (0.11-0.8); Monocytes % 10.2 % (1.7-12.7); Neutrophils # 4.3 10*3/uL (1.4-7.4); Neutrophils % 70.2 % (38.7-73.9); Platelet Count 205 T/CUMM (130-400); Red Blood Count 3.67 MC/CUMM (3.8-5.5); Red Cell Distribution Width 18.6 % (9.3-17.3); White Blood Count 6.2 T/CUMM (4-12)
[2017-01-11 06:12] LABS: Calcium 8.5 MG/DL (8.5-10.1); Magnesium 2.3 MG/DL (1.8-2.4); Osmolality,Calculated 286.4 MOS/KG (273-304)
[2017-01-11 07:00] LABS: Eosinophils 1 % (0-10); Giant Platelets Few; Hypochromasia 1+; Lymphocytes 16 % (20-55); Platelet Estimate Adequate; Segmented Neutrophils 68 % (50-85); Total Cells Counted 100
[2017-01-11 07:01] LABS: Microcytosis Slight; Ovalocytes Slight
[2017-01-11] MEDS: INSULIN LISPRO 100 UNIT/ML SUBCUT SCH ×2 (07:39→11:15)
--- NOTE | 2017-01-11 08:15 | Cardiology Progress Note ---
<Maci Joyce - Last Filed: 01/11/17 08:11> Assessment and Plan (1) Acute on chronic combined systolic (congestive) and diastolic (congestive) heart failure Status: Acute Assessment and plan: SEE PLAN OF CARE LISTED BELOW. Current Visit: Yes (2) Hypertension Problem details: Continue home meds Status: Chronic Assessment and plan: SEE PLAN OF CARE LISTED BELOW. Current Visit: Yes Qualifiers: Hypertension type: essential hypertension Qualified Code(s): I10 - Essential (primary) hypertension (3) Diabetes mellitus Status: Chronic Assessment and plan: SEE PLAN OF CARE LISTED BELOW. 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 Continue home meds. Status: Chronic Assessment and plan: SEE PLAN OF CARE LISTED BELOW. Current Visit: No (5) Lower extremity edema Status: Chronic Assessment and plan: SEE PLAN OF CARE LISTED BELOW. Current Visit: No (6) Chronic kidney disease Status: Chronic Assessment and plan: SEE PLAN OF CARE LISTED BELOW. Current Visit: Yes Qualifiers: Chronic kidney disease stage: stage 3 (moderate) Qualified Code(s): N18.3 - Chronic kidney disease, stage 3 (moderate) (7) Anemia Status: Chronic Assessment and plan: SEE PLAN OF CARE LISTED BELOW. Current Visit: Yes Qualifiers: Other causes of anemia: chronic disease, kidney (8) Cardiomyopathy Status: Chronic Assessment and plan: SEE PLAN OF CARE LISTED BELOW. Current Visit: Yes Qualifiers: Cardiomyopathy type: unspecified Qualified Code(s): I42.9 - Cardiomyopathy , unspecified (9) Dyslipidemia Status: Chronic Assessment and plan: SEE PLAN OF CARE LISTED BELOW. Current Visit: No (10) Noncompliance Status: Chronic Assessment and plan: SEE PLAN OF CARE LISTED BELOW. Current Visit: Yes (11) Severe mitral regurgitation Status: Chronic Assessment and plan: SEE PLAN OF CARE LISTED BELOW. Current Visit: No (12) Pulmonary hypertension Status: Chronic Assessment and plan: SEE PLAN OF CARE LISTED BELOW. Current Visit: Yes (13) Left arm pain Status: Acute Assessment and plan: SEE PLAN OF CARE LISTED BELOW. Current Visit: Yes (14) Jaw pain Status: Acute Assessment and plan: SEE PLAN OF CARE LISTED BELOW. Current Visit: Yes Cardiology - PN: Subj Interval history: BRAKE REPAIR MECHANIC: Dr. Pereira PHARMACY GRAD INTERN: Dr. Warren Summary: Ms. Bethea is a 51 year old female without known history of coronary artery disease, who has not followed up in the cardiology clinic but has had frequent admissions for recurrent congestive heart failure. Noncompliant. Patient has cardiac risk factors significant for diabetes, hypertension, current everyday smoker and sedentary lifestyle. Patient has a past medical history of diastolic (grade 1 dysfunction) and systolic heart failure (most recent ejection fraction June 2016 revealed ejection fraction of 35-40%, July 2015 her ejection fraction was 55%), chronic kidney disease (routinely followed by Dr. Warren), severe mitral regurgitation, anemia, asthma and neuropathy. She had a right heart catheterization per Dr. Leo July 2015. This revealed pulmonary hypertension. Right atrial pressure 17 mmHg, right ventricular pressure 48/19 mmHg, pulmonary capillary wedge pressure 26 mmHg and PAP 55/36 with a mean of 45 mmHg. At that time, they planned for left heart catheterization when renal function was optimized. She has not demonstrated compliance with her follow-through and has therefore not undergone cardiac catheterization. Admitted now January 06, 2017 with complaints of left arm and jaw pain, bilateral lower extremity edema. She underwent cardiac catheterization January 08, 2017 demonstrating diffuse circumflex disease along the AV groove portion of the vessel which is going to be medically managed, as well as severe mitral regurgitation and peripheral vascular disease in the right lower extremity. January 11, 2017: Patient was seen and examined on the telemetry unit. Overall, her night has been uneventful. She was without complaints of chest pain, heaviness or tightness. She reports that her breathing continues to improve. Today she is lying flat in bed without any overt orthopnea. Her groin is soft without bleeding, hematoma. Soft bruit auscultated. Ultrasound yesterday did not reveal any vascular abnormalities. Most likely secondary to her PVD. Hemodynamically stable. Creatinine today 2.2. This appears to be at her baseline. From a cardiac standpoint the patient will be stable for discharge home today. She will follow with Dr. Pereira in 2 weeks. She demonstrates clinical compliance and makes his appointment from there she can be referred to [place]. If she does come to the follow-up appointment she will require a defibrillator as well. IMPRESSION AND PLAN: 1. CHF - Acute on chronic CHF, etiology is combined systolic and diastolic dysfunction LVEF (35%-40%), severe MR and non-compliance. NYHA Class III-IV. Patient has been hospitalized frequently for recurrent congestive heart failure. Avoiding JOSELIN inhibitor/ARB due to fear of worsening renal function. Continue afterload reduction with hydralazine and Imdur. Continue beta- blockade. We are going to see her back in clinic and will make a referral to Dr. Dc Abdi in [place] to evaluate for possible mitral valve clip given her comorbidities. 2. CARDIOMYOPATHY, EF 25% - This is a mixed ischemic and nonischemic, predominantly nonischemic cardiomyopathy. Clinically she is feeling improved and we will continue to diurese her. She is not on JOSELIN inhibitor due to her underlying renal insufficiency but we will afterload pants presser automatic with hydralazine and nitrates. See discussion above. 3. PULMONARY HYPERTENSION - Continue current plan of care 4. DYSLIPIDEMIA - Lipid panel reviewed. LDL 229. High intensity statin. 5. CHRONIC KIDNEY DISEASE - Stage III. Creatinine 2.0 upon admission. This is actually improved from previous admissions. Will monitor with daily BMP. 6. NON-COMPLIANCE - Reiterated importance of compliance 7. SEVERE MITRAL REGURGITATION - Severe. Given her comorbidities will have her evaluated for possible mitral clip. This will be done on outpatient basis since we have been able to improve her heart failure. 8. DIABETES - Management per attending. 9. ANEMIA - Chronic. Stable. Continue to follow with daily CBC. 10. ASTHMA - Chronic, stable. 11. CORONARY ARTERY DISEASE-underwent cardiac catheterization January 08. Diffuse circumflex disease was noted. Medical management ensued. Continue aspirin, nitrates and beta blockade. JOSELIN inhibitor/ARB unable to be used due to patient's underlying renal insufficiency. 12. HYPERTENSION - Will monitor blood pressure and adjust medications accordingly. 13. BILATERAL LOWER EXTREMITY EDEMA - Chronic. No evidence of DVT per venous Dopplers of lower extremities. 14. PERIPHERAL VASCULAR DISEASE- This is present in the right lower extremity and may need to be addressed prior to her ability to receive a clip. Again we will have this evaluated in [place]. 15. RIGHT FEMORAL BRUIT- I suspect this is secondary to her PVD. Arterial ultrasound was unremarkable. Exam (Progress Note) - Constitutional Vitals: Period Temp Pulse Resp BP Sys/De La Garza Pulse Ox Last 24 Hr 97.3 F-98.2 F 70-106 16-18 80-144/49-86 91-96 Exam: General appearance: normal weight, no acute distress - Head Head exam: Present: normal inspection, normocephalic, atraumatic. Absent: hematoma, laceration - Eye Eye exam: Present: EOMI. Absent: conjunctival injection, nystagmus, periorbital swelling, scleral icterus, laceration to eyelids Pupils: Present: PERRL. Absent: constricted, dilated, fixed, irregular, unequal - ENT ENT exam: Present: normal exam, normal external ear exam - Neck Neck exam: Present: normal inspection. Absent: lymphadenopathy, meningismus, tenderness, thyromegaly - Respiratory Respiratory exam: Present: clear to auscultation bilaterally. Absent: accessory muscle use, chest wall tenderness - Cardiovascular Cardiovascular exam: Present: regular rate and rhythm with a soft 2/6 holosystolic murmur loudest at the apex. Absent: carotid bruit, gallop, JVD, rubs - GI/Abdominal GI/Abdominal exam: Present: normal bowel sounds, soft. Absent: distended, firm , guarding, hernia, mass, tenderness, rebound. - Extremities Exam Extremities exam: Present: Right groin is without hematoma or ecchymosis, but a soft bruit is auscultated. Pulse is 2+. Absent: calf tenderness, edema - Back Exam Back exam: Present: normal inspection. Absent: muscle spasm, vertebral tenderness - Neurological Exam Neurological exam: Present: alert, oriented X3, grossly intact without resting or intention tremor - Psychiatric Psychiatric exam: Present: normal affect, normal mood - Skin Skin exam: Present: normal color, warm, dry, intact. Absent: cyanosis, diaphoretic, rash, urticaria Result/EKG - Labs CBC & BMP: 01/11/17 04:41 01/11/17 04:41 Lab Results: I have reviewed the past 24 hour labs Labs: Laboratory Results - last 24 hr 01/10/17 01/10/17 01/10/17 07:23 11:28 15:28 WBC RBC Hgb Hct MCV MCH MCHC RDW Plt Count MPV Neut % (Auto) Lymph % (Auto) Dickenson % (Auto) Eos % (Auto) Baso % (Auto) Neut # (Auto) Lymph # (Auto) Dickenson # (Auto) Eos # (Auto) Baso # (Auto) Total Counted Immature Gran % Nucleated RBC % Immature Gran # Segmented Neutrophils Lymphocytes Monocytes Eosinophils Nucleated RBCs # Platelet Estimate Giant Platelets Immature Plt Fraction Hypochromasia Microcytosis Ovalocytes Sodium Potassium Chloride Carbon Dioxide Anion Gap BUN Creatinine GFR Calculation BUN/Creatinine Ratio Glucose POC Glucose 96 244 H 282 H Calculated Osmolality Calcium Magnesium 01/10/17 01/11/17 01/11/17 20:02 02:33 03:01 WBC RBC Hgb Hct MCV MCH MCHC RDW Plt Count MPV Neut % (Auto) Lymph % (Auto) Dickenson % (Auto) Eos % (Auto) Baso % (Auto) Neut # (Auto) Lymph # (Auto) Dickenson # (Auto) Eos # (Auto) Baso # (Auto) Total Counted Immature Gran % Nucleated RBC % Immature Gran # Segmented Neutrophils Lymphocytes Monocytes Eosinophils Nucleated RBCs # Platelet Estimate Giant Platelets Immature Plt Fraction Hypochromasia Microcytosis Ovalocytes Sodium Potassium Chloride Carbon Dioxide Anion Gap BUN Creatinine GFR Calculation BUN/Creatinine Ratio Glucose POC Glucose 232 H 48 L* 77 Calculated Osmolality Calcium Magnesium 01/11/17 01/11/17 01/11/17 04:41 04:41 07:14 WBC 6.2 RBC 3.67 L Hgb 10.0 L Hct 31.6 L MCV 86.1 L MCH 27 MCHC 31.6 L RDW 18.6 H Plt Count 205 MPV 12.9 H Neut % (Auto) 70.2 Lymph % (Auto) 16.3 L Dickenson % (Auto) 10.2 Eos % (Auto) 2.3 Baso % (Auto) 0.7 Neut # (Auto) 4.3 Lymph # (Auto) 1.0 L Dickenson # (Auto) 0.6 Eos # (Auto) 0.1 Baso # (Auto) 0.0 Total Counted 100 Immature Gran % 0.3 Nucleated RBC % 0.0 Immature Gran # 0.02 Segmented Neutrophils 68 Lymphocytes 16 L Monocytes 15 Eosinophils 1 Nucleated RBCs # 0.00 Platelet Estimate Adequate Giant Platelets Few Immature Plt Fraction 0.0 Hypochromasia 1+ Microcytosis Slight Ovalocytes Slight Sodium 140 Potassium 4.0 Chloride 105 Carbon Dioxide 25 Anion Gap 14.0 BUN 35 H Creatinine 2.20 H GFR Calculation 30 BUN/Creatinine Ratio 15.00 Glucose 101 POC Glucose 54 L Calculated Osmolality 286.4 Calcium 8.5 Magnesium 2.3 Specialty Discharge - Follow Up or Referrals Follow up with: Kel Pereira MD [Physician] - 2 Weeks (BMP) <Timo Ramirez - Last Filed: 01/11/17 09:57> Cardiology - PN: Subj Interval history: Cardiology addendum. Patient examined chart reviewed and discussed with nurse Maci Joyce RN. Severe MR Ejection 35-40% % by echo June 2016. multifactorial cardiomyopathy. Chronic hypertension Diabetes Active smoker Chronic renal failure Cardiac cath January 08, 2017 showed diffuse circumflex disease to be managed medically and severe MR Chronic anemia Long history of patient noncompliance Lab data today sodium 140 potassium 4.5 BUN 35 creatinine 2.20 Hemoglobin 10.0 hematocrit 31.6 Plan Discharge okay with dc Office visit [address] Pereira scheduled Patient encouraged to take all medications daily and not to miss doses and to show up for follow-up visit Exam (Progress Note) - Constitutional Vitals: Period Temp Pulse Resp BP Sys/De La Garza Pulse Ox Last 24 Hr 97.3 F-98.2 F 70-106 16-18 80-144/49-86 91-96 Result/EKG - Labs CBC & BMP: 01/11/17 04:41 01/11/17 04:41 Labs: Laboratory Results - last 24 hr 01/10/17 01/10/17 01/10/17 11:28 15:28 20:02 WBC RBC Hgb Hct MCV MCH MCHC RDW Plt Count MPV Neut % (Auto) Lymph % (Auto) Dickenson % (Auto) Eos % (Auto) Baso % (Auto) Neut # (Auto) Lymph # (Auto) Dickenson # (Auto) Eos # (Auto) Baso # (Auto) Total Counted Immature Gran % Nucleated RBC % Immature Gran # Segmented Neutrophils Lymphocytes Monocytes Eosinophils Nucleated RBCs # Platelet Estimate Giant Platelets Immature Plt Fraction Hypochromasia Microcytosis Ovalocytes Sodium Potassium Chloride Carbon Dioxide Anion Gap BUN Creatinine GFR Calculation BUN/Creatinine Ratio Glucose POC Glucose 244 H 282 H 232 H Calculated Osmolality Calcium Magnesium 01/11/17 01/11/17 01/11/17 02:33 03:01 04:41 WBC 6.2 RBC 3.67 L Hgb 10.0 L Hct 31.6 L MCV 86.1 L MCH 27 MCHC 31.6 L RDW 18.6 H Plt Count 205 MPV 12.9 H Neut % (Auto) 70.2 Lymph % (Auto) 16.3 L Dickenson % (Auto) 10.2 Eos % (Auto) 2.3 Baso % (Auto) 0.7 Neut # (Auto) 4.3 Lymph # (Auto) 1.0 L Dickenson # (Auto) 0.6 Eos # (Auto) 0.1 Baso # (Auto) 0.0 Total Counted 100 Immature Gran % 0.3 Nucleated RBC % 0.0 Immature Gran # 0.02 Segmented Neutrophils 68 Lymphocytes 16 L Monocytes 15 Eosinophils 1 Nucleated RBCs # 0.00 Platelet Estimate Adequate Giant Platelets Few Immature Plt Fraction 0.0 Hypochromasia 1+ Microcytosis Slight Ovalocytes Slight Sodium Potassium Chloride Carbon Dioxide Anion Gap BUN Creatinine GFR Calculation BUN/Creatinine Ratio Glucose POC Glucose 48 L* 77 Calculated Osmolality Calcium Magnesium 01/11/17 01/11/17 04:41 07:14 WBC RBC Hgb Hct MCV MCH MCHC RDW Plt Count MPV Neut % (Auto) Lymph % (Auto) Dickenson % (Auto) Eos % (Auto) Baso % (Auto) Neut # (Auto) Lymph # (Auto) Dickenson # (Auto) Eos # (Auto) Baso # (Auto) Total Counted Immature Gran % Nucleated RBC % Immature Gran # Segmented Neutrophils Lymphocytes Monocytes Eosinophils Nucleated RBCs # Platelet Estimate Giant Platelets Immature Plt Fraction Hypochromasia Microcytosis Ovalocytes Sodium 140 Potassium 4.0 Chloride 105 Carbon Dioxide 25 Anion Gap 14.0 BUN 35 H Creatinine 2.20 H GFR Calculation 30 BUN/Creatinine Ratio 15.00 Glucose 101 POC Glucose 54 L Calculated Osmolality 286.4 Calcium 8.5 Magnesium 2.3
[2017-01-11] MEDS ORDERED: FUROSEMIDE 40 MG TABLET PO SCH ×2 (09:00→16:00)
[2017-01-11] MEDS: CARVEDILOL 12.5 MG TABLET PO SCH (09:28)
[2017-01-11] MEDS: ASCORBIC ACID 500 MG TABLET PO SCH (09:28)
[2017-01-11] MEDS: GABAPENTIN 100 MG CAPSULE PO SCH (09:29)
[2017-01-11] MEDS: ISOSORBIDE MONONITRATE 30 MG TABLET PO SCH (09:29)
[2017-01-11] MEDS: BUDESONIDE/FORMOTEROL 160-4.5 INHALER 6 GM INH SCH (09:29)
[2017-01-11] MEDS: DOCUSATE SODIUM 100 MG CAPSULE PO SCH (09:29)
[2017-01-11] MEDS: ASPIRIN EC 325 MG TABLET PO SCH (09:29)
--- NOTE | 2017-01-11 10:53 | Discharge Summary ---
Hospital Course - Hospital Course Hospital Course: Ms. Bethea is a 51 year old female without known history of coronary artery disease, who has not followed up in the cardiology clinic but has had frequent admissions for recurrent congestive heart failure. Noncompliant. Patient has cardiac risk factors significant for diabetes, hypertension, current everyday smoker and sedentary lifestyle. Patient is a past medical history of diastolic (grade 1 dysfunction) and systolic heart failure (most recent ejection fraction June 2016 revealed ejection fraction of 35-40%, July 2015 her ejection fraction was 55%), chronic kidney disease (routinely followed by Dr. aWrren), severe mitral regurgitation, anemia, asthma and neuropathy. She had a right heart catheterization per Dr. Leo July 2015. This revealed pulmonary hypertension. Right atrial pressure 17 mmHg, right ventricular pressure 48/19 mmHg, pulmonary capillary wedge pressure 26 mmHg and PAP 55/36 with a mean of 45 mmHg. At that time, they plan for left heart catheterization when renal function was optimized. She is not demonstrated compliance with her follow- through and has therefore not undergone cardiac catheterization. She has had several appointments made since that time and has not followed up. Patient presented to [facility] January 06, 2017 with complaints of left arm and jaw pain. She also confirms worsening bilateral lower extremity edema. She denies dyspnea, heaviness or tightness. Denies orthopnea worsening shortness of breath or dyspnea on exertion. She does report worsening cough/congestion. Her left arm pain developed yesterday afternoon while at rest. She developed a sharp pain in her left arm which then radiated to the left side of her face and jaw. No associated shortness of breath or chest pain. No nausea or diaphoresis. This only lasted approximately 1 hour and resolved on its own. Cannot identify any specific alleviating or activating factors. No triggers identified. She feels that she should be further evaluated in the emergency department. She has been admitted under hospital medicine's service. Housed on the telemetry unit. Cardiology has been consulted to further evaluate her symptomology. Patient was seen and examined on the telemetry along with Dr. Pereira. Patient is without complaints of chest pain, heaviness or tightness. Upon entering the room, her head of bed was approximately 20. She is without complaints of orthopnea or shortness of breath. She reports that she could lie flat without difficulty. Denies arm pain or jaw pain. She is noted to have bilateral lower extremity edema. Will order venous Dopplers of lower extremities to rule out DVT. BNP 1178 admission. She is currently being diuresed. Acute on chronic CHF, etiology is combined systolic and diastolic dysfunction LVEF (35%-40%), severe MR and non-compliance. NYHA Class III-IV. Patient has been hospitalized frequently for recurrent congestive heart failure. Patient does have severe MR and suspect that this is contributing. Patient also has a cardiomyopathy that has never been evaluated. We will plan for ischemic workup tomorrow morning with left heart catheterization if renal function remains stable. Obtain echocardiogram to reevaluate mitral regurgitation. If this remains severe, we can then begin planning for possible mitral valve replacement. In the meantime, we will continue to diurese patient with IV Lasix. Monitor renal function very closely given her chronic kidney disease. Continue to monitor strict I's and O's and daily weights. Avoiding JOSELIN inhibitor/ARB due to fear of worsening renal function. Continue afterload reduction with hydralazine and Imdur. Continue beta-blockade. Patient was seen in consultation by cardiology. She underwent a cardiac catheterization demonstrating her to have severe left ventricular systolic dysfunction with LVEF 25%, severe mitral insufficiency, and normal coronary arteries. Her medications were adjusted, including increasing hydralazine and Imdur. She was not a candidate for JOSELIN inhibitors, ARB's, or spironolactone due to her severe renal insufficiency. At the time of her discharge she was comfortable with no complaints, including no shortness of breath or chest pain. Dr. Leo plans to refer her to Dr. Dc Abdi in [place] to undergo mitral valve clip for her severe mitral insufficiency. Diagnosis - Discharge Diagnosis (1) Sleep apnea Status: Chronic (2) Diabetes Status: Chronic (3) Acute on chronic combined systolic (congestive) and diastolic (congestive) heart failure Status: Acute (4) Chronic kidney disease Status: Chronic (5) Cardiomyopathy Status: Chronic (6) Hypertension Status: Chronic (7) Severe mitral regurgitation Status: Chronic Specialty Discharge - Follow Up or Referrals Follow up with: Kel Pereira MD [Physician] - 2 Weeks ([facility]) Discharge Plan - Discharge Data Disposition: Disch To Home/Self Care Condition at Discharge: Stable Discharge Diet: advance to your usual diet Activity: resume usual activities as tolerated - Discharge Medications New hydrALAZINE TAB [Apresoline Tab] 100 mg PO TID #90 tablet Continue Albuterol Inhaler [Proventil Inhaler] 2 puff INH Q4H PRN #1 inhaler PRN Reason: Shortness Of Breath/Wheezing Gabapentin Cap/Tab [Neurontin Cap/Tab] 100 mg PO BID #60 capsule Pantoprazole Tab [Protonix Tab] 40 mg PO AC SUPPER #30 tablet Insulin Regular [HumuLIN R] 0 unit SUBCUT AC BREAKFAST PRN PRN Reason: SLIDING SCALE Isosorbide Mononitrate [Imdur] 15 mg PO QAM Furosemide Tab [Lasix Tab] 80 mg PO QAM Lisinopril 10 mg PO DAILY Ascorbic Acid Tab [Vitamin C Tab] 1,000 mg PO BID tablet Budesonide/Formoterol 160-4.5 [Symbicort 160-4.5] 2 puff INH BID #1 inhaler Insulin Detemir [Levemir] 30 unit SUBCUT BEDTIME Carvedilol [Coreg] 12.5 mg PO QAM - Follow Up or Referral Follow Up: Kel Pereira MD [Physician] - 2 Weeks ([facility]) - Forms/Instructions Instructions: Coronary Artery Disease (GEN), Left Heart Catheterization (DC), How to Stop Smoking (GEN), Heart Healthy Diet (GEN), Cigarette Smoking and Your Health (GEN) Exam - Constitutional Vitals: Period Temp Pulse Resp BP Sys/[place] Pulse Ox Last 24 Hr 97.3 F-98.2 F 70-106 16-18 80-144/49-86 91-96 Discharge Results Procedures and tests throughout hospitalization: Pending Orders 01/08/17 07:40 CL heart Routine Labs on day of discharge: Labs from last 24 hours 01/11/17 01/11/17 01/11/17 07:14 04:41 04:41 WBC 6.2 RBC 3.67 L Hgb 10.0 L Hct 31.6 L MCV 86.1 L MCH 27 MCHC 31.6 L RDW 18.6 H Plt Count 205 MPV 12.9 H Neut % (Auto) 70.2 Lymph % (Auto) 16.3 L Ector % (Auto) 10.2 Eos % (Auto) 2.3 Baso % (Auto) 0.7 Neut # (Auto) 4.3 Lymph # (Auto) 1.0 L Ector # (Auto) 0.6 Eos # (Auto) 0.1 Baso # (Auto) 0.0 Total Counted 100 Immature Gran % 0.3 Nucleated RBC % 0.0 Immature Gran # 0.02 Segmented Neutrophils 68 Lymphocytes 16 L Monocytes 15 Eosinophils 1 Nucleated RBCs # 0.00 Platelet Estimate Adequate Giant Platelets Few Immature Plt Fraction 0.0 Hypochromasia 1+ Microcytosis Slight Ovalocytes Slight Sodium 140 Potassium 4.0 Chloride 105 Carbon Dioxide 25 Anion Gap 14.0 BUN 35 H Creatinine 2.20 H GFR Calculation 30 BUN/Creatinine Ratio 15.00 Glucose 101 POC Glucose 54 L Calculated Osmolality 286.4 Calcium 8.5 Magnesium 2.3 01/11/17 01/11/17 01/10/17 03:01 02:33 20:02 WBC RBC Hgb Hct MCV MCH MCHC RDW Plt Count MPV Neut % (Auto) Lymph % (Auto) Ector % (Auto) Eos % (Auto) Baso % (Auto) Neut # (Auto) Lymph # (Auto) Ector # (Auto) Eos # (Auto) Baso # (Auto) Total Counted Immature Gran % Nucleated RBC % Immature Gran # Segmented Neutrophils Lymphocytes Monocytes Eosinophils Nucleated RBCs # Platelet Estimate Giant Platelets Immature Plt Fraction Hypochromasia Microcytosis Ovalocytes Sodium Potassium Chloride Carbon Dioxide Anion Gap BUN Creatinine GFR Calculation BUN/Creatinine Ratio Glucose POC Glucose 77 48 L* 232 H Calculated Osmolality Calcium Magnesium 01/10/17 01/10/17 15:28 11:28 WBC RBC Hgb Hct MCV MCH MCHC RDW Plt Count MPV Neut % (Auto) Lymph % (Auto) Ector % (Auto) Eos % (Auto) Baso % (Auto) Neut # (Auto) Lymph # (Auto) Ector # (Auto) Eos # (Auto) Baso # (Auto) Total Counted Immature Gran % Nucleated RBC % Immature Gran # Segmented Neutrophils Lymphocytes Monocytes Eosinophils Nucleated RBCs # Platelet Estimate Giant Platelets Immature Plt Fraction Hypochromasia Microcytosis Ovalocytes Sodium Potassium Chloride Carbon Dioxide Anion Gap BUN Creatinine GFR Calculation BUN/Creatinine Ratio Glucose POC Glucose 282 H 244 H Calculated Osmolality Calcium Magnesium DS: Provider Date of admission: 01/06/17 18:50 Primary care physician: . No PCP Attending physician on admission: Kathleen Richardson CNP Consults: 01/06/17 20:22 Consult to Physician [CONS] Routine Comment: Consulting Provider: Cardiology - [facility] Person Notified: Orin Date Notified: 01/07/17 Time Notified: 08:00 01/07/17 08:00 Consult to Pastoral Services [CONS] Routine Comment: Pastoral Screen: Request Entry Level Installation Technician Visit 01/08/17 11:42 Consult to Cardiac Rehabilitation [CONS] Routine Reason for Cardiac Rehabilitation: Risk Factor Modification Other Consult Comment: Evaluate and recommend Discharging clinician: Olivier Juarez
[2017-01-11 11:45] VITALS: BP 127/74
== END 2017-01-11 14:18 | disposition home or self-care (01) | DRG 191 ==
LOC: EDUNIT# → EDBD → N.ED 15:43 → SUATTDRO 18:50 → N.EDINP 18:50 → N.TELES 19:42
PROVIDERS: ADMIT Nurse Practitioner

== ENCOUNTER 2017-02-04 07:46 | Inpatient (IN) ==
[2017-02-04] MEDS ORDERED: ONDANSETRON 4 MG/2 ML VIAL IV PRN ×2 (08:19→11:27)
[2017-02-04] MEDS ORDERED: NITROGLYCERIN 2% OINT 1 INCH/GM PACK TOP STA (08:19)
[2017-02-04] MEDS ORDERED: ASPIRIN 325 MG TABLET PO STA (08:19)
[2017-02-04] MEDS ORDERED: NITROGLYCERIN SL 0.4 MG TABLET SL PRN (08:19)
[2017-02-04] MEDS ORDERED: NITROGLYCERIN 2% OINT 1 INCH/GM PACK TOP ONE (08:46)
[2017-02-04] MEDS ORDERED: ASPIRIN 325 MG TABLET ONE (08:46)
[2017-02-04 08:49] LABS: Basophils % 0.6 % (0.0-0.8); Eosinophils # 0.1 10*3/uL (0.0-0.87); Eosinophils % 1.4 % (0.00-10.9); Hematocrit 32.6 VOL% (35.7-47.0); Hemoglobin 10.5 GM/DL (12.0-16.0); Immature Granulocytes % 0.5 %; Immature Granulocytes Absolute 0.03 #; Lymphocytes # 0.6 10*3/uL (1.4-4.0); Lymphocytes % 10.2 % (21.3-54.2); Mean Corpuscular HGB Conc 32.2 GM/DL (32-36); Mean Corpuscular Hemoglobin 29 PG (27-34); Mean Corpuscular Volume 88.3 FL (87-102); Mean Platelet Volume 12.8 FL (9.6-12.0); Monocytes # 0.6 10*3/uL (0.11-0.8); Monocytes % 9.3 % (1.7-12.7); NRBC # 0.06 10*3/uL; Neutrophils # 4.9 10*3/uL (1.4-7.4); Platelet Count 218 T/CUMM (130-400); Red Blood Count 3.69 MC/CUMM (3.8-5.5); Red Cell Distribution Width 19.1 % (9.3-17.3); White Blood Count 6.3 T/CUMM (4-12)
[2017-02-04 08:59] LABS: PT Patient Result 10.9 SECS; Partial Thromboplastin Time 24.8 SECS (0-40)
[2017-02-04 09:31] LABS: Albumin 2.1 G/DL (3.4-5.0); Bilirubin,Total 2.1 MG/DL (0.2-1.0); Calcium 8.9 MG/DL (8.5-10.1); Osmolality,Calculated 298.7 MOS/KG (273-304); Potassium 5.3 MMOL/L (3.5-5.1); Total Protein 7.4 G/DL (6.4-8.3)
[2017-02-04] MEDS ORDERED: INSULIN LISPRO 100 UNIT/ML SUBCUT STA (10:14)
[2017-02-04] MEDS ORDERED: METOPROLOL TARTRATE 5 MG/5 ML VIAL IV STA (10:15)
[2017-02-04] MEDS ORDERED: METOPROLOL TARTRATE 5 MG/5 ML VIAL IV ONE (10:20)
[2017-02-04] MEDS ORDERED: INSULIN LISPRO 100 UNIT/ML SUBCUT ONE (10:22)
[2017-02-04] MEDS ORDERED: DOCUSATE SODIUM 100 MG CAPSULE PO PRN (11:27)
[2017-02-04] MEDS ORDERED: GLUCAGON 1 MG VIAL IM PRN (11:27)
[2017-02-04] MEDS ORDERED: DEXTROSE 50% 25 GM/50 ML VIAL IV PRN (11:27)
[2017-02-04] MEDS ORDERED: FUROSEMIDE 40 MG/4 ML VIAL IV STA (11:38)
[2017-02-04] MEDS ORDERED: FUROSEMIDE 100 MG/10 ML VIAL IV STA (12:33)
[2017-02-04] MEDS ORDERED: INFLUENZA VIRUS VACCINE 0.5 ML SYRINGE IM ONE (13:27)
[2017-02-04] MEDS: INSULIN REGULAR 100 UNIT/ML SUBCUT SCH ×4 (14:28→22:14)
[2017-02-04] MEDS: PANTOPRAZOLE 40 MG TABLET PO SCH (14:46)
[2017-02-04] MEDS ORDERED: ALBUTEROL 2.5 MG/3 ML NEB RESP TX PRN (20:56)
[2017-02-04] MEDS: ASCORBIC ACID 500 MG TABLET PO SCH (22:13)
[2017-02-04] MEDS: GABAPENTIN 100 MG CAPSULE PO SCH (22:14)
[2017-02-04] MEDS: INSULIN GLARGINE 100 UNIT/ML SUBCUT SCH (22:14)
[2017-02-04] MEDS: BUDESONIDE/FORMOTEROL 160-4.5 INHALER 6 GM INH SCH (22:15)
[2017-02-05 06:16] LABS: Basophils # 0.1 10*3/uL (0.0-0.2); Basophils % 0.8 % (0.0-0.8); Eosinophils # 0.1 10*3/uL (0.0-0.87); Eosinophils % 2.2 % (0.00-10.9); Hematocrit 31.5 VOL% (35.7-47.0); Hemoglobin 10.1 GM/DL (12.0-16.0); Immature Granulocytes % 0.8 %; Immature Granulocytes Absolute 0.05 #; Lymphocytes # 1.1 10*3/uL (1.4-4.0); Mean Corpuscular HGB Conc 32.1 GM/DL (32-36); Mean Corpuscular Hemoglobin 28 PG (27-34); Mean Corpuscular Volume 87.7 FL (87-102); Mean Platelet Volume 13.1 FL (9.6-12.0); Monocytes # 0.7 10*3/uL (0.11-0.8); NRBC # 0.05 10*3/uL; Neutrophils # 3.9 10*3/uL (1.4-7.4); Neutrophils % 65.2 % (38.7-73.9); Platelet Count 222 T/CUMM (130-400); Red Blood Count 3.59 MC/CUMM (3.8-5.5); Red Cell Distribution Width 18.6 % (9.3-17.3)
[2017-02-05 06:56] LABS: Calcium 8.4 MG/DL (8.5-10.1); Osmolality,Calculated 284.4 MOS/KG (273-304); Potassium 4.3 MMOL/L (3.5-5.1)
[2017-02-05] MEDS: INSULIN REGULAR 100 UNIT/ML SUBCUT SCH ×4 (08:10→21:19)
[2017-02-05] MEDS ORDERED: LISINOPRIL 10 MG TABLET PO SCH (09:00)
[2017-02-05] MEDS ORDERED: CARVEDILOL 12.5 MG TABLET PO SCH (09:00)
[2017-02-05] MEDS: ASCORBIC ACID 500 MG TABLET PO SCH ×2 (09:07→21:18)
[2017-02-05] MEDS: PANTOPRAZOLE 40 MG TABLET PO SCH (09:07)
[2017-02-05] MEDS: metOLazone 5 MG TABLET PO SCH (09:07)
[2017-02-05] MEDS: GABAPENTIN 100 MG CAPSULE PO SCH ×2 (09:07→21:18)
[2017-02-05] MEDS: ISOSORBIDE MONONITRATE 30 MG TABLET PO SCH (09:08)
[2017-02-05] MEDS: ACETAMINOPHEN 325 MG TABLET PO PRN ×2 (09:08→17:08)
[2017-02-05] MEDS: FUROSEMIDE 100 MG/10 ML VIAL IV SCH ×2 (09:09→16:06)
[2017-02-05] MEDS: MAGNESIUM OXIDE 400 MG TABLET PO SCH (09:09)
[2017-02-05] MEDS: cefTRIAXone 1,000 MG in SYRINGE 1 EACH IV SCH (09:10)
[2017-02-05] MEDS: BUDESONIDE/FORMOTEROL 160-4.5 INHALER 6 GM INH SCH ×2 (09:37→21:18)
[2017-02-05] MEDS: POTASSIUM CHLORIDE 20 MEQ TABLET PO SCH (09:42)
[2017-02-05] MEDS: hydrALAZINE 25 MG TABLET PO SCH (21:18)
[2017-02-05] MEDS: CARVEDILOL 12.5 MG TABLET PO SCH (21:18)
[2017-02-05] MEDS: INSULIN GLARGINE 100 UNIT/ML SUBCUT SCH (21:19)
[2017-02-06] MEDS: NITROGLYCERIN 2% OINT 1 INCH/GM PACK TOP SCH ×5 (01:52→18:03)
[2017-02-06] MEDS: INSULIN REGULAR 100 UNIT/ML SUBCUT SCH ×4 (07:48→21:10)
[2017-02-06] MEDS: PANTOPRAZOLE 40 MG TABLET PO SCH (08:43)
[2017-02-06] MEDS: ISOSORBIDE MONONITRATE 30 MG TABLET PO SCH (08:43)
[2017-02-06] MEDS: POTASSIUM CHLORIDE 20 MEQ TABLET PO SCH (08:43)
[2017-02-06] MEDS: hydrALAZINE 25 MG TABLET PO SCH ×3 (08:43→21:09)
[2017-02-06] MEDS: ASCORBIC ACID 500 MG TABLET PO SCH ×2 (08:44→21:08)
[2017-02-06] MEDS: GABAPENTIN 100 MG CAPSULE PO SCH ×2 (08:44→21:09)
[2017-02-06] MEDS: MAGNESIUM OXIDE 400 MG TABLET PO SCH (08:44)
[2017-02-06] MEDS: metOLazone 5 MG TABLET PO SCH (08:44)
[2017-02-06] MEDS: CARVEDILOL 12.5 MG TABLET PO SCH ×2 (08:44→21:09)
[2017-02-06] MEDS: cefTRIAXone 1,000 MG in SYRINGE 1 EACH IV SCH (08:44)
[2017-02-06] MEDS: BUDESONIDE/FORMOTEROL 160-4.5 INHALER 6 GM INH SCH ×2 (08:45→21:10)
[2017-02-06] MEDS: FUROSEMIDE 100 MG/10 ML VIAL IV SCH ×2 (08:45→15:15)
[2017-02-06 14:07] LABS: Basophils % 0.8 % (0.0-0.8); Eosinophils # 0.1 10*3/uL (0.0-0.87); Hematocrit 31.4 VOL% (35.7-47.0); Hemoglobin 10.1 GM/DL (12.0-16.0); Immature Granulocytes % 0.6 %; Immature Granulocytes Absolute 0.03 #; Lymphocytes # 0.5 10*3/uL (1.4-4.0); Lymphocytes % 10.5 % (21.3-54.2); Mean Corpuscular HGB Conc 32.2 GM/DL (32-36); Mean Corpuscular Hemoglobin 28 PG (27-34); Mean Corpuscular Volume 88.2 FL (87-102); Mean Platelet Volume 12.4 FL (9.6-12.0); Monocytes # 0.4 10*3/uL (0.11-0.8); Neutrophils # 3.9 10*3/uL (1.4-7.4); Neutrophils % 78.1 % (38.7-73.9); Platelet Count 216 T/CUMM (130-400); Red Blood Count 3.56 MC/CUMM (3.8-5.5); Red Cell Distribution Width 18.4 % (9.3-17.3)
[2017-02-06 14:45] LABS: Blood Urea Nitrogen 56 MG/DL (7-18); Calcium 8.5 MG/DL (8.5-10.1); Glucose 349 MG/DL (74-106); Magnesium 2.3 MG/DL (1.8-2.4); Osmolality,Calculated 295.4 MOS/KG (273-304); Potassium 4.3 MMOL/L (3.5-5.1); Sodium 133 MMOL/L (136-145)
[2017-02-06 14:46] LABS: Troponin I Only 0.033 NG/ML (0.00-0.045)
[2017-02-06 19:44] LABS: Troponin I Only 0.035 NG/ML (0.00-0.045)
[2017-02-06] MEDS: ACETAMINOPHEN 325 MG TABLET PO PRN (21:08)
[2017-02-06] MEDS: guaiFENesin/DM ER 600-30 MG TABLET PO PRN (21:09)
[2017-02-06] MEDS: INSULIN GLARGINE 100 UNIT/ML SUBCUT SCH (21:09)
[2017-02-07] MEDS: NITROGLYCERIN 2% OINT 1 INCH/GM PACK TOP SCH ×4 (00:18→17:13)
[2017-02-07 02:26] LABS: Basophils % 0.5 % (0.0-0.8); Eosinophils # 0.2 10*3/uL (0.0-0.87); Eosinophils % 2.6 % (0.00-10.9); Hematocrit 31.1 VOL% (35.7-47.0); Hemoglobin 10.2 GM/DL (12.0-16.0); Immature Granulocytes % 0.5 %; Immature Granulocytes Absolute 0.03 #; Lymphocytes # 0.9 10*3/uL (1.4-4.0); Lymphocytes % 14.9 % (21.3-54.2); Mean Corpuscular HGB Conc 32.8 GM/DL (32-36); Mean Corpuscular Hemoglobin 29 PG (27-34); Mean Corpuscular Volume 86.9 FL (87-102); Mean Platelet Volume 12.9 FL (9.6-12.0); Monocytes # 0.5 10*3/uL (0.11-0.8); Monocytes % 9.3 % (1.7-12.7); Neutrophils # 4.2 10*3/uL (1.4-7.4); Neutrophils % 72.2 % (38.7-73.9); Platelet Count 231 T/CUMM (130-400); Red Blood Count 3.58 MC/CUMM (3.8-5.5); White Blood Count 5.8 T/CUMM (4-12)
[2017-02-07 02:58] LABS: Troponin I Only 0.046 NG/ML (0.00-0.045)
[2017-02-07 03:08] LABS: Calcium 8.8 MG/DL (8.5-10.1); Magnesium 2.2 MG/DL (1.8-2.4); Osmolality,Calculated 285.1 MOS/KG (273-304); Potassium 3.7 MMOL/L (3.5-5.1)
[2017-02-07] MEDS: INSULIN REGULAR 100 UNIT/ML SUBCUT SCH ×4 (08:33→21:13)
[2017-02-07] MEDS: hydrALAZINE 25 MG TABLET PO SCH ×3 (10:04→21:12)
[2017-02-07] MEDS: MAGNESIUM OXIDE 400 MG TABLET PO SCH (10:04)
[2017-02-07] MEDS: ISOSORBIDE MONONITRATE 30 MG TABLET PO SCH (10:04)
[2017-02-07] MEDS: metOLazone 5 MG TABLET PO SCH (10:04)
[2017-02-07] MEDS: ASCORBIC ACID 500 MG TABLET PO SCH ×2 (10:04→21:13)
[2017-02-07] MEDS: CARVEDILOL 12.5 MG TABLET PO SCH ×2 (10:05→21:12)
[2017-02-07] MEDS: POTASSIUM CHLORIDE 20 MEQ TABLET PO SCH (10:05)
[2017-02-07] MEDS: PANTOPRAZOLE 40 MG TABLET PO SCH (10:05)
[2017-02-07] MEDS: cefTRIAXone 1,000 MG in SYRINGE 1 EACH IV SCH (10:05)
[2017-02-07] MEDS: GABAPENTIN 100 MG CAPSULE PO SCH ×2 (10:05→21:13)
[2017-02-07] MEDS: FUROSEMIDE 80 MG TABLET PO SCH (10:08)
[2017-02-07] MEDS: BUDESONIDE/FORMOTEROL 160-4.5 INHALER 6 GM INH SCH ×2 (10:08→21:14)
[2017-02-07] MEDS: ACETAMINOPHEN 325 MG TABLET PO PRN ×2 (15:29→21:13)
[2017-02-07] MEDS ORDERED: ISOSORBIDE MONONITRATE 30 MG TABLET PO SCH (17:38)
[2017-02-07] MEDS: ASPIRIN EC 325 MG TABLET PO SCH (18:04)
[2017-02-07] MEDS: guaiFENesin/DM ER 600-30 MG TABLET PO PRN (21:12)
[2017-02-07] MEDS: INSULIN GLARGINE 100 UNIT/ML SUBCUT SCH (21:12)
[2017-02-08] MEDS: NITROGLYCERIN 2% OINT 1 INCH/GM PACK TOP SCH ×3 (00:15→11:52)
[2017-02-08] MEDS ORDERED: ALUMINUM/MAGNES/SIMETH MAX STR 30 ML UDCUP PO PRN (03:48)
[2017-02-08 05:02] LABS: Calcium 8.4 MG/DL (8.5-10.1); Magnesium 2.3 MG/DL (1.8-2.4); Osmolality,Calculated 289.1 MOS/KG (273-304); Potassium 3.8 MMOL/L (3.5-5.1)
[2017-02-08] MEDS: ASCORBIC ACID 500 MG TABLET PO SCH (09:39)
[2017-02-08] MEDS: ASPIRIN EC 325 MG TABLET PO SCH (09:39)
[2017-02-08] MEDS: PANTOPRAZOLE 40 MG TABLET PO SCH (09:39)
[2017-02-08] MEDS: MAGNESIUM OXIDE 400 MG TABLET PO SCH (09:39)
[2017-02-08] MEDS: metOLazone 5 MG TABLET PO SCH (09:39)
[2017-02-08] MEDS: POTASSIUM CHLORIDE 20 MEQ TABLET PO SCH (09:40)
[2017-02-08] MEDS: FUROSEMIDE 80 MG TABLET PO SCH (09:40)
[2017-02-08] MEDS: CARVEDILOL 12.5 MG TABLET PO SCH (09:40)
[2017-02-08] MEDS: GABAPENTIN 100 MG CAPSULE PO SCH (09:40)
[2017-02-08] MEDS: cefTRIAXone 1,000 MG in SYRINGE 1 EACH IV SCH (09:40)
[2017-02-08] MEDS: hydrALAZINE 25 MG TABLET PO SCH (09:40)
[2017-02-08] MEDS: INSULIN REGULAR 100 UNIT/ML SUBCUT SCH ×2 (09:41→12:46)
[2017-02-08] MEDS: BUDESONIDE/FORMOTEROL 160-4.5 INHALER 6 GM INH SCH (09:44)
[2017-02-08 12:11] VITALS: BP 143/74
== END 2017-02-08 14:50 | disposition home or self-care (01) | DRG 194 ==
LOC: N.ED 07:46 → N.EDINP 10:18 → SUATTDRO 10:18 → N.TELEN 12:50
PROVIDERS: ADMIT Internal Medicine; ATTEND Internal Medicine

== ENCOUNTER 2017-03-02 23:56 | Inpatient (IN) ==
[2017-03-03] MEDS ORDERED: methylPREDNISolone SOD SUC 125 MG/2 ML VIAL IV STA (02:57)
[2017-03-03] MEDS ORDERED: FUROSEMIDE 100 MG/10 ML VIAL IV STA (02:57)
[2017-03-03] MEDS ORDERED: ONDANSETRON 4 MG/2 ML VIAL IV STA (02:57)
[2017-03-03 03:10] LABS: PT Patient Result 10.6 SECS
[2017-03-03 03:22] LABS: Basophils # 0.1 10*3/uL (0.0-0.2); Basophils % 0.7 % (0.0-0.8); Eosinophils # 0.2 10*3/uL (0.0-0.87); Eosinophils % 2.5 % (0.00-10.9); Hematocrit 36.4 VOL% (35.7-47.0); Hemoglobin 11.9 GM/DL (12.0-16.0); Immature Granulocytes % 0.9 %; Immature Granulocytes Absolute 0.06 #; Lymphocytes # 0.9 10*3/uL (1.4-4.0); Lymphocytes % 12.6 % (21.3-54.2); Mean Corpuscular HGB Conc 32.7 GM/DL (32-36); Mean Corpuscular Hemoglobin 28 PG (27-34); Mean Corpuscular Volume 86.5 FL (87-102); Monocytes # 0.5 10*3/uL (0.11-0.8); Monocytes % 7.4 % (1.7-12.7); Neutrophils # 5.2 10*3/uL (1.4-7.4); Neutrophils % 75.9 % (38.7-73.9); Platelet Count 225 T/CUMM (130-400); Red Blood Count 4.21 MC/CUMM (3.8-5.5); Red Cell Distribution Width 18.2 % (9.3-17.3); White Blood Count 6.9 T/CUMM (4-12)
[2017-03-03] MEDS ORDERED: methylPREDNISolone SOD SUC 125 MG/2 ML VIAL ONE (03:28)
[2017-03-03] MEDS ORDERED: ONDANSETRON 4 MG/2 ML VIAL ONE (03:28)
[2017-03-03] MEDS ORDERED: FUROSEMIDE 40 MG/4 ML VIAL ONE (03:28)
[2017-03-03 03:48] LABS: Anisocytosis 1+; Hypochromasia Slight; Platelet Estimate Normal; Target Cells Few; Tear Drop Cells 1+
[2017-03-03 05:09] LABS: Albumin 1.7 G/DL (3.4-5.0); Bilirubin,Total 2.1 MG/DL (0.2-1.0); Calcium 7.9 MG/DL (8.5-10.1); Magnesium 2.2 MG/DL (1.8-2.4); Osmolality,Calculated 294.8 MOS/KG (273-304); Potassium 4.9 MMOL/L (3.5-5.1); Total Protein 6.8 G/DL (6.4-8.3); Troponin I Only 0.038 NG/ML (0.00-0.045)
[2017-03-03 05:21] LABS: Amorphous Crystals,Urine Occasional /HPF (Few); Apearance,Urine CLEAR (Clear); Bacteria,Urine Few /HPF (Few); Bilirubin,Urine Negative (Negative); Blood, Urine Small mg/dL (Negative); Glucose,Urine (UA) >=500 mg/dL (Negative); Ketones,Urine Negative (Negative); Mucus,Urine Occasional /LPF (Occasional); Nitrite,Urine Negative (Negative); Protein,Urine >=500 MG/DL; RBC,Urine 16 /HPF (0-4); Squamous Epithelial Cell,Urine Occasional /HPF (0-10); Urine Color Yellow (Yellow); Urine Urobilinogen < 2.0 EU/DL (0.2-1.0); WBC,Urine 2 /HPF (0-6)
[2017-03-03 07:16] LABS: Barbiturates Screen,Urine Negative (Negative); Benzodiazepines Screen,Urine Negative (Negative); Cannabinoid Screen,Urine Negative (Negative); Opiate Screen,Urine Negative (Negative); Phencyclidine Screen,Urine Negative (Negative)
[2017-03-03] MEDS ORDERED: ONDANSETRON 4 MG/2 ML VIAL IV PRN (08:00)
[2017-03-03] MEDS ORDERED: GLUCAGON 1 MG VIAL IM PRN (08:00)
[2017-03-03] MEDS ORDERED: MORPHINE 2 MG/1 ML SYRINGE IV PRN (08:00)
[2017-03-03] MEDS ORDERED: DEXTROSE 50% 25 GM/50 ML VIAL IV PRN (08:00)
[2017-03-03] MEDS ORDERED: ACETAMINOPHEN 325 MG TABLET PO PRN (08:00)
[2017-03-03] MEDS: FUROSEMIDE 40 MG/4 ML VIAL IV SCH ×2 (08:20→17:33)
[2017-03-03] MEDS: ENOXAPARIN 40 MG/0.4 ML SYRINGE SUBCUT SCH (08:20)
[2017-03-03] MEDS ORDERED: PANTOPRAZOLE 40 MG TABLET PO ONE (08:47)
[2017-03-03] MEDS: PANTOPRAZOLE 40 MG TABLET PO SCH (08:50)
[2017-03-03] MEDS ORDERED: INSULIN REGULAR 100 UNIT/ML ONE ×2 (08:58→12:46)
[2017-03-03] MEDS: INSULIN REGULAR 100 UNIT/ML SUBCUT SCH ×4 (08:59→22:00)
[2017-03-03] MEDS ORDERED: INSULIN GLARGINE 100 UNIT/ML SUBCUT SCH ×2 (09:00→18:23)
[2017-03-03] MEDS ORDERED: INSULIN GLARGINE 100 UNIT/ML SUBCUT ONE (09:32)
[2017-03-03] MEDS: ISOSORBIDE MONONITRATE 30 MG TABLET PO SCH (09:39)
[2017-03-03] MEDS: DOCUSATE SODIUM 100 MG CAPSULE PO SCH ×2 (09:39→20:50)
[2017-03-03] MEDS ORDERED: INFLUENZA VIRUS VACCINE 0.5 ML SYRINGE IM ONE (14:53)
[2017-03-03] MEDS ORDERED: ALBUTEROL 2.5 MG/3 ML NEB RESP TX PRN (15:30)
[2017-03-03] MEDS ORDERED: ALUMINUM/MAGNES/SIMETH MAX STR 30 ML UDCUP PO PRN (20:28)
[2017-03-03] MEDS: GABAPENTIN 100 MG CAPSULE PO SCH (20:50)
[2017-03-03] MEDS: MAGNESIUM OXIDE 400 MG TABLET PO SCH (20:50)
[2017-03-03] MEDS: CARVEDILOL 25 MG TABLET PO SCH (20:50)
[2017-03-03] MEDS: ASCORBIC ACID 500 MG TABLET PO SCH (20:50)
[2017-03-03] MEDS: BUDESONIDE/FORMOTEROL 160-4.5 INHALER 6 GM INH SCH (22:00)
[2017-03-04] MEDS: ASPIRIN EC 325 MG TABLET PO SCH (09:38)
[2017-03-04] MEDS: ASCORBIC ACID 500 MG TABLET PO SCH ×2 (09:38→21:03)
[2017-03-04] MEDS: GABAPENTIN 100 MG CAPSULE PO SCH ×2 (09:38→21:03)
[2017-03-04] MEDS: ISOSORBIDE MONONITRATE 30 MG TABLET PO SCH (09:38)
[2017-03-04] MEDS: MAGNESIUM OXIDE 400 MG TABLET PO SCH ×2 (09:38→21:02)
[2017-03-04] MEDS: metOLazone 5 MG TABLET PO SCH (09:38)
[2017-03-04] MEDS: PANTOPRAZOLE 40 MG TABLET PO SCH (09:38)
[2017-03-04] MEDS: CARVEDILOL 25 MG TABLET PO SCH ×2 (09:38→21:02)
[2017-03-04] MEDS: DOCUSATE SODIUM 100 MG CAPSULE PO SCH ×2 (09:39→21:02)
[2017-03-04] MEDS: FUROSEMIDE 40 MG/4 ML VIAL IV SCH ×2 (09:39→16:11)
[2017-03-04] MEDS: ENOXAPARIN 40 MG/0.4 ML SYRINGE SUBCUT SCH (09:39)
[2017-03-04] MEDS: BUDESONIDE/FORMOTEROL 160-4.5 INHALER 6 GM INH SCH ×2 (09:45→21:04)
[2017-03-04] MEDS: INSULIN REGULAR 100 UNIT/ML SUBCUT SCH ×4 (09:45→21:03)
[2017-03-04 10:08] LABS: Free T4 (Free Thyroxine) 0.87 NG/DL (0.76-1.46); Thyroid Stimulating Hormone 1.89 uIU/ml (0.358-3.74)
[2017-03-04 11:56] LABS: Basophils % 0.5 % (0.0-0.8); Eosinophils # 0.1 10*3/uL (0.0-0.87); Eosinophils % 1.5 % (0.00-10.9); Hematocrit 32.5 VOL% (35.7-47.0); Hemoglobin 10.8 GM/DL (12.0-16.0); Immature Granulocytes % 0.5 %; Immature Granulocytes Absolute 0.03 #; Lymphocytes # 0.9 10*3/uL (1.4-4.0); Lymphocytes % 13.6 % (21.3-54.2); Mean Corpuscular HGB Conc 33.2 GM/DL (32-36); Mean Corpuscular Hemoglobin 28 PG (27-34); Mean Corpuscular Volume 85.1 FL (87-102); Monocytes # 0.6 10*3/uL (0.11-0.8); Monocytes % 8.5 % (1.7-12.7); Neutrophils # 4.9 10*3/uL (1.4-7.4); Neutrophils % 75.4 % (38.7-73.9); Platelet Count 188 T/CUMM (130-400); Red Blood Count 3.82 MC/CUMM (3.8-5.5); Red Cell Distribution Width 17.4 % (9.3-17.3); White Blood Count 6.5 T/CUMM (4-12)
[2017-03-04 12:32] LABS: Calcium 8.5 MG/DL (8.5-10.1); Magnesium 2.1 MG/DL (1.8-2.4); Osmolality,Calculated 299.2 MOS/KG (273-304); Potassium 4.4 MMOL/L (3.5-5.1)
[2017-03-04] MEDS ORDERED: INSULIN GLARGINE 100 UNIT/ML SUBCUT SCH (14:04)
[2017-03-04] MEDS ORDERED: NICOTINE 14 MG/24 HR PATCH TRANSDERM PRN (14:11)
[2017-03-04] MEDS: cefTRIAXone 1,000 MG in SYRINGE 1 EACH IV SCH (15:58)
[2017-03-05 05:59] LABS: Basophils # 0.1 10*3/uL (0.0-0.2); Basophils % 1.2 % (0.0-0.8); Eosinophils # 0.2 10*3/uL (0.0-0.87); Eosinophils % 2.9 % (0.00-10.9); Hemoglobin 10.6 GM/DL (12.0-16.0); Immature Granulocytes % 0.3 %; Immature Granulocytes Absolute 0.02 #; Lymphocytes # 1.1 10*3/uL (1.4-4.0); Lymphocytes % 18.2 % (21.3-54.2); Mean Corpuscular HGB Conc 33.1 GM/DL (32-36); Mean Corpuscular Hemoglobin 28 PG (27-34); Mean Corpuscular Volume 84.9 FL (87-102); Mean Platelet Volume 13.5 FL (9.6-12.0); Monocytes # 0.6 10*3/uL (0.11-0.8); Monocytes % 10.6 % (1.7-12.7); Neutrophils # 3.9 10*3/uL (1.4-7.4); Neutrophils % 66.8 % (38.7-73.9); Platelet Count 191 T/CUMM (130-400); Red Blood Count 3.77 MC/CUMM (3.8-5.5); Red Cell Distribution Width 17.2 % (9.3-17.3); White Blood Count 5.8 T/CUMM (4-12)
[2017-03-05 06:32] LABS: Calcium 8.5 MG/DL (8.5-10.1); Osmolality,Calculated 287.8 MOS/KG (273-304); Potassium 4.3 MMOL/L (3.5-5.1)
[2017-03-05] MEDS: PANTOPRAZOLE 40 MG TABLET PO SCH (09:34)
[2017-03-05] MEDS: MAGNESIUM OXIDE 400 MG TABLET PO SCH ×2 (09:34→21:00)
[2017-03-05] MEDS: CARVEDILOL 25 MG TABLET PO SCH ×2 (09:34→21:01)
[2017-03-05] MEDS: ASPIRIN EC 325 MG TABLET PO SCH (09:34)
[2017-03-05] MEDS: ISOSORBIDE MONONITRATE 30 MG TABLET PO SCH (09:34)
[2017-03-05] MEDS: DOCUSATE SODIUM 100 MG CAPSULE PO SCH ×2 (09:34→21:00)
[2017-03-05] MEDS: ASCORBIC ACID 500 MG TABLET PO SCH ×2 (09:34→21:00)
[2017-03-05] MEDS: GABAPENTIN 100 MG CAPSULE PO SCH ×2 (09:34→21:01)
[2017-03-05] MEDS: metOLazone 5 MG TABLET PO SCH (09:34)
[2017-03-05] MEDS: ENOXAPARIN 30 MG/0.3 ML SYRINGE SUBCUT SCH (09:35)
[2017-03-05] MEDS: FUROSEMIDE 40 MG/4 ML VIAL IV SCH ×2 (09:35→18:22)
[2017-03-05] MEDS: INSULIN REGULAR 100 UNIT/ML SUBCUT SCH ×4 (09:35→21:06)
[2017-03-05] MEDS: BUDESONIDE/FORMOTEROL 160-4.5 INHALER 6 GM INH SCH ×2 (09:38→21:37)
[2017-03-05] MEDS ORDERED: INSULIN GLARGINE 100 UNIT/ML SUBCUT SCH (15:01)
[2017-03-05] MEDS: cefTRIAXone 1,000 MG in SYRINGE 1 EACH IV SCH (18:21)
[2017-03-06 04:00] LABS: Basophils # 0.1 10*3/uL (0.0-0.2); Basophils % 1.1 % (0.0-0.8); Eosinophils # 0.2 10*3/uL (0.0-0.87); Eosinophils % 3.1 % (0.00-10.9); Hematocrit 31.5 VOL% (35.7-47.0); Hemoglobin 10.7 GM/DL (12.0-16.0); Immature Granulocytes % 0.4 %; Immature Granulocytes Absolute 0.02 #; Lymphocytes # 0.9 10*3/uL (1.4-4.0); Lymphocytes % 15.9 % (21.3-54.2); Mean Corpuscular Hemoglobin 29 PG (27-34); Mean Platelet Volume 13.2 FL (9.6-12.0); Monocytes # 0.7 10*3/uL (0.11-0.8); Monocytes % 11.9 % (1.7-12.7); Neutrophils # 3.8 10*3/uL (1.4-7.4); Neutrophils % 67.6 % (38.7-73.9); Platelet Count 200 T/CUMM (130-400); Red Blood Count 3.75 MC/CUMM (3.8-5.5); Red Cell Distribution Width 16.9 % (9.3-17.3); White Blood Count 5.5 T/CUMM (4-12)
[2017-03-06 04:23] LABS: Osmolality,Calculated 289.1 MOS/KG (273-304); Potassium 4.1 MMOL/L (3.5-5.1)
[2017-03-06 05:06] LABS: Calcium 8.2 MG/DL (8.5-10.1); Osmolality,Calculated 289.1 MOS/KG (273-304); Potassium 4.1 MMOL/L (3.5-5.1)
[2017-03-06] MEDS ORDERED: FUROSEMIDE 40 MG TABLET PO SCH (08:00)
[2017-03-06] MEDS: ASPIRIN EC 325 MG TABLET PO SCH (09:41)
[2017-03-06] MEDS: BUDESONIDE/FORMOTEROL 160-4.5 INHALER 6 GM INH SCH (09:41)
[2017-03-06] MEDS: CARVEDILOL 25 MG TABLET PO SCH (09:41)
[2017-03-06] MEDS: ISOSORBIDE MONONITRATE 30 MG TABLET PO SCH (09:41)
[2017-03-06] MEDS: ASCORBIC ACID 500 MG TABLET PO SCH (09:41)
[2017-03-06] MEDS: ENOXAPARIN 30 MG/0.3 ML SYRINGE SUBCUT SCH (09:41)
[2017-03-06] MEDS: metOLazone 5 MG TABLET PO SCH (09:41)
[2017-03-06] MEDS: GABAPENTIN 100 MG CAPSULE PO SCH (09:41)
[2017-03-06] MEDS: DOCUSATE SODIUM 100 MG CAPSULE PO SCH (09:41)
[2017-03-06] MEDS: MAGNESIUM OXIDE 400 MG TABLET PO SCH (09:41)
[2017-03-06] MEDS: PANTOPRAZOLE 40 MG TABLET PO SCH (09:41)
[2017-03-06] MEDS: INSULIN REGULAR 100 UNIT/ML SUBCUT SCH ×2 (10:25→12:25)
[2017-03-06 13:34] VITALS: BP 149/76
== END 2017-03-06 14:48 | disposition home or self-care (01) | DRG 194 ==
LOC: N.ED 23:56 → N.TELES 03-03 13:50 → N.EDINP 03-03 14:36 → N.TELES 03-03 14:42
PROVIDERS: ADMIT Internal Medicine; ATTEND Internal Medicine

== ENCOUNTER 2017-03-22 13:47 | Inpatient (IN) ==
[2017-03-22 15:26] LABS: Basophils % 0.7 % (0.0-0.8); Eosinophils # 0.1 10*3/uL (0.0-0.87); Eosinophils % 1.8 % (0.00-10.9); Hematocrit 35.8 VOL% (35.7-47.0); Hemoglobin 11.8 GM/DL (12.0-16.0); Immature Granulocytes % 0.6 %; Immature Granulocytes Absolute 0.03 #; Lymphocytes # 0.8 10*3/uL (1.4-4.0); Lymphocytes % 14.7 % (21.3-54.2); Mean Corpuscular Hemoglobin 28 PG (27-34); Mean Corpuscular Volume 85.2 FL (87-102); Mean Platelet Volume 13.1 FL (9.6-12.0); Monocytes # 0.3 10*3/uL (0.11-0.8); Monocytes % 6.3 % (1.7-12.7); NRBC # 0.09 10*3/uL; Neutrophils # 4.1 10*3/uL (1.4-7.4); Neutrophils % 75.9 % (38.7-73.9); Platelet Count 224 T/CUMM (130-400); Red Cell Distribution Width 16.6 % (9.3-17.3); White Blood Count 5.4 T/CUMM (4-12)
[2017-03-22 15:54] LABS: Albumin 1.7 G/DL (3.4-5.0); Bilirubin,Total 0.8 MG/DL (0.2-1.0); Calcium 8.1 MG/DL (8.5-10.1); Osmolality,Calculated 291.5 MOS/KG (273-304); Total Protein 6.8 G/DL (6.4-8.3)
[2017-03-22] MEDS ORDERED: CALCIUM CHLORIDE 1,000 MG/10 ML SYRINGE IV STA (17:29)
[2017-03-22] MEDS ORDERED: INSULIN REGULAR 100 UNIT/ML IV STA (17:30)
[2017-03-22] MEDS ORDERED: CALCIUM CHLORIDE 1,000 MG/10 ML SYRINGE IV ONE (17:35)
[2017-03-22] MEDS ORDERED: INSULIN REGULAR 100 UNIT/ML ONE (17:38)
[2017-03-22 17:46] LABS: Apearance,Urine CLOUDY (Clear); Bilirubin,Urine Negative (Negative); Blood, Urine Negative (Negative); Glucose,Urine (UA) >=500 mg/dL (Negative); Ketones,Urine Negative (Negative); Mucus,Urine Occasional /LPF (Occasional); Nitrite,Urine Negative (Negative); Protein,Urine >=500 MG/DL; RBC,Urine 8 /HPF (0-4); Squamous Epithelial Cell,Urine Few /HPF (0-10); Urine Color Yellow (Yellow); Urine Specific Gravity 1.017 (1.001-1.035); WBC,Urine 3 /HPF (0-6)
[2017-03-22] MEDS ORDERED: NIFEdipine 10 MG CAPSULE ONE (18:58)
[2017-03-22] MEDS ORDERED: NIFEdipine 10 MG CAPSULE PO ONE (18:59)
[2017-03-22] MEDS ORDERED: ONDANSETRON 4 MG/2 ML VIAL IV PRN (19:57)
[2017-03-22] MEDS ORDERED: GLUCAGON 1 MG VIAL IM PRN (19:57)
[2017-03-22] MEDS ORDERED: DEXTROSE 50% 25 GM/50 ML VIAL IV PRN (19:57)
[2017-03-22] MEDS ORDERED: SODIUM POLYSTYRENE SULFATE 15 GM/60 ML BOTTLE PO ONE (19:57)
[2017-03-22 20:48] LABS: Free T4 (Free Thyroxine) 0.88 NG/DL (0.76-1.46); Thyroid Stimulating Hormone 2.77 uIU/ml (0.358-3.74)
[2017-03-22] MEDS ORDERED: ENOXAPARIN 30 MG/0.3 ML SYRINGE SUBCUT SCH (21:00)
[2017-03-22] MEDS: FUROSEMIDE 40 MG/4 ML VIAL IV SCH (22:29)
[2017-03-22] MEDS: CARVEDILOL 25 MG TABLET PO SCH (22:30)
[2017-03-22] MEDS: GABAPENTIN 100 MG CAPSULE PO SCH (22:30)
[2017-03-22] MEDS: INSULIN REGULAR 100 UNIT/ML SUBCUT SCH (22:30)
[2017-03-22] MEDS: INSULIN GLARGINE 100 UNIT/ML SUBCUT SCH (22:31)
[2017-03-22] MEDS: ASCORBIC ACID 500 MG TABLET PO SCH (22:33)
[2017-03-22] MEDS: BUDESONIDE/FORMOTEROL 160-4.5 INHALER 6 GM INH SCH (22:33)
[2017-03-23] MEDS: ALBUTEROL/IPRATROPIUM 3 ML NEB RESP TX SCH ×4 (01:45→19:09)
[2017-03-23 06:03] LABS: Apearance,Urine CLEAR (Clear); Bilirubin,Urine Negative (Negative); Blood, Urine Negative (Negative); Glucose,Urine (UA) Negative (Negative); Ketones,Urine Negative (Negative); Mucus,Urine Occasional /LPF (Occasional); Nitrite,Urine Negative (Negative); Protein,Urine 100 MG/DL; RBC,Urine 1 /HPF (0-4); Squamous Epithelial Cell,Urine Occasional /HPF (0-10); Urine Color Straw (Yellow); Urine Specific Gravity 1.005 (1.001-1.035); Urine Urobilinogen < 2.0 EU/DL (0.2-1.0); WBC,Urine 1 /HPF (0-6)
[2017-03-23 07:31] LABS: Basophils # 0.1 10*3/uL (0.0-0.2); Basophils % 0.9 % (0.0-0.8); Eosinophils # 0.2 10*3/uL (0.0-0.87); Eosinophils % 3.2 % (0.00-10.9); Hematocrit 33.2 VOL% (35.7-47.0); Hemoglobin 10.6 GM/DL (12.0-16.0); Immature Granulocytes % 0.8 %; Immature Granulocytes Absolute 0.04 #; Lymphocytes # 0.8 10*3/uL (1.4-4.0); Lymphocytes % 15.6 % (21.3-54.2); Mean Corpuscular HGB Conc 31.9 GM/DL (32-36); Mean Corpuscular Hemoglobin 28 PG (27-34); Mean Corpuscular Volume 87.4 FL (87-102); Mean Platelet Volume 12.3 FL (9.6-12.0); Monocytes # 0.5 10*3/uL (0.11-0.8); Monocytes % 8.8 % (1.7-12.7); NRBC # 0.11 10*3/uL; Neutrophils # 3.8 10*3/uL (1.4-7.4); Neutrophils % 70.7 % (38.7-73.9); Platelet Count 195 T/CUMM (130-400); Red Cell Distribution Width 16.4 % (9.3-17.3); White Blood Count 5.3 T/CUMM (4-12)
[2017-03-23] MEDS: ALBUTEROL 2.5 MG/3 ML NEB RESP TX SCH (07:54)
[2017-03-23 08:22] LABS: Albumin 1.5 G/DL (3.4-5.0); Bilirubin,Total 0.9 MG/DL (0.2-1.0); Calcium 8.5 MG/DL (8.5-10.1); Osmolality,Calculated 283.7 MOS/KG (273-304); Potassium 4.6 MMOL/L (3.5-5.1); Risk Ratio 3.88; Total Protein 5.9 G/DL (6.4-8.3); VLDL CHOLESTEROL 12.6 MG/DL
[2017-03-23] MEDS ORDERED: BROMFENAC SODIUM LEFT EYE SCH (09:00)
[2017-03-23] MEDS: ISOSORBIDE MONONITRATE 30 MG TABLET PO SCH (09:24)
[2017-03-23] MEDS: GABAPENTIN 100 MG CAPSULE PO SCH ×2 (09:24→20:09)
[2017-03-23] MEDS: CARVEDILOL 25 MG TABLET PO SCH ×2 (09:24→16:51)
[2017-03-23] MEDS: BISACODYL 5 MG TABLET PO SCH ×2 (09:24→16:51)
[2017-03-23] MEDS: ASCORBIC ACID 500 MG TABLET PO SCH ×2 (09:25→20:08)
[2017-03-23] MEDS: PANTOPRAZOLE 40 MG TABLET PO SCH (09:25)
[2017-03-23] MEDS: INSULIN REGULAR 100 UNIT/ML SUBCUT SCH ×4 (09:25→20:36)
[2017-03-23] MEDS: FUROSEMIDE 40 MG/4 ML VIAL IV SCH ×2 (09:25→16:51)
[2017-03-23] MEDS: BUDESONIDE/FORMOTEROL 160-4.5 INHALER 6 GM INH SCH ×2 (09:26→20:09)
[2017-03-23] MEDS ORDERED: MORPHINE 2 MG/1 ML SYRINGE IV PRN (11:36)
[2017-03-23] MEDS: METOCLOPRAMIDE 10 MG/2 ML VIAL IV SCH ×2 (12:01→18:45)
[2017-03-23] MEDS ORDERED: diphenhydrAMINE CAP 25 MG CAPSULE PO ONE (12:14)
[2017-03-23] MEDS ORDERED: HYDROCORTISONE 0.5% CREAM 28.35 GM TUBE TOP PRN (15:34)
[2017-03-23] MEDS ORDERED: POLYETHYLENE GLYCOL 3350/ELECTROLYTES 4,000 ML BOTTLE NG ONE (18:00)
[2017-03-23] MEDS: SODIUM BICARBONATE 650 MG TABLET PO SCH (20:08)
[2017-03-23] MEDS: INSULIN GLARGINE 100 UNIT/ML SUBCUT SCH (20:09)
[2017-03-24] MEDS: METOCLOPRAMIDE 10 MG/2 ML VIAL IV SCH ×4 (00:46→19:10)
[2017-03-24] MEDS: BISACODYL 5 MG TABLET PO SCH (00:47)
[2017-03-24] MEDS: ACETAMINOPHEN 325 MG TABLET PO PRN (00:59)
[2017-03-24] MEDS: ALBUTEROL/IPRATROPIUM 3 ML NEB RESP TX SCH ×4 (00:59→20:17)
[2017-03-24 07:09] LABS: Basophils % 0.6 % (0.0-0.8); Eosinophils # 0.1 10*3/uL (0.0-0.87); Eosinophils % 2.9 % (0.00-10.9); Hematocrit 34.6 VOL% (35.7-47.0); Hemoglobin 11.4 GM/DL (12.0-16.0); Immature Granulocytes % 0.4 %; Immature Granulocytes Absolute 0.02 #; Lymphocytes % 20.2 % (21.3-54.2); Mean Corpuscular HGB Conc 32.9 GM/DL (32-36); Mean Corpuscular Hemoglobin 28 PG (27-34); Mean Corpuscular Volume 85.9 FL (87-102); Mean Platelet Volume 12.6 FL (9.6-12.0); Monocytes # 0.4 10*3/uL (0.11-0.8); Monocytes % 8.3 % (1.7-12.7); NRBC # 0.06 10*3/uL; Neutrophils # 3.3 10*3/uL (1.4-7.4); Neutrophils % 67.6 % (38.7-73.9); Platelet Count 225 T/CUMM (130-400); Red Blood Count 4.03 MC/CUMM (3.8-5.5); Red Cell Distribution Width 16.3 % (9.3-17.3); White Blood Count 4.8 T/CUMM (4-12)
[2017-03-24 07:58] LABS: Albumin 1.6 G/DL (3.4-5.0); Bilirubin,Total 0.8 MG/DL (0.2-1.0); Calcium 8.4 MG/DL (8.5-10.1); Osmolality,Calculated 277.8 MOS/KG (273-304); Potassium 3.9 MMOL/L (3.5-5.1); Risk Ratio 3.86; Total Protein 6.3 G/DL (6.4-8.3); VLDL CHOLESTEROL 20.6 MG/DL
[2017-03-24] MEDS ORDERED: DEXTROSE 50% 25 GM/50 ML VIAL IV ONE ×2 (08:36→09:30)
[2017-03-24] MEDS: DIPHENOXYLATE/ATROPINE 2.5-0.025 MG TABLET PO SCH ×2 (10:13→21:04)
[2017-03-24] MEDS: SODIUM BICARBONATE 650 MG TABLET PO SCH ×2 (10:13→21:04)
[2017-03-24] MEDS: FUROSEMIDE 40 MG/4 ML VIAL IV SCH ×2 (10:13→16:19)
[2017-03-24] MEDS: GABAPENTIN 100 MG CAPSULE PO SCH ×2 (10:13→21:04)
[2017-03-24] MEDS: PANTOPRAZOLE 40 MG TABLET PO SCH (10:14)
[2017-03-24] MEDS: ISOSORBIDE MONONITRATE 30 MG TABLET PO SCH (10:14)
[2017-03-24] MEDS: CARVEDILOL 25 MG TABLET PO SCH ×2 (10:14→16:19)
[2017-03-24] MEDS: ASCORBIC ACID 500 MG TABLET PO SCH ×2 (10:14→21:04)
[2017-03-24] MEDS: BUDESONIDE/FORMOTEROL 160-4.5 INHALER 6 GM INH SCH ×2 (10:16→22:18)
[2017-03-24] MEDS: INSULIN REGULAR 100 UNIT/ML SUBCUT SCH ×4 (11:04→21:05)
[2017-03-24] MEDS: INSULIN GLARGINE 100 UNIT/ML SUBCUT SCH (21:04)
[2017-03-24] MEDS: ALBUTEROL 2.5 MG/3 ML NEB RESP TX SCH (21:30)
[2017-03-25] MEDS: ALBUTEROL 2.5 MG/3 ML NEB RESP TX SCH (01:00)
[2017-03-25] MEDS: METOCLOPRAMIDE 10 MG/2 ML VIAL IV SCH ×4 (01:20→17:32)
[2017-03-25] MEDS: ALBUTEROL/IPRATROPIUM 3 ML NEB RESP TX SCH ×4 (01:21→21:06)
[2017-03-25] MEDS: ACETAMINOPHEN 325 MG TABLET PO PRN ×2 (03:59→10:30)
[2017-03-25 07:04] LABS: Basophils % 0.6 % (0.0-0.8); Eosinophils # 0.1 10*3/uL (0.0-0.87); Eosinophils % 2.6 % (0.00-10.9); Hematocrit 31.6 VOL% (35.7-47.0); Hemoglobin 10.6 GM/DL (12.0-16.0); Immature Granulocytes % 0.6 %; Immature Granulocytes Absolute 0.03 #; Lymphocytes # 0.9 10*3/uL (1.4-4.0); Lymphocytes % 16.9 % (21.3-54.2); Mean Corpuscular HGB Conc 33.5 GM/DL (32-36); Mean Corpuscular Hemoglobin 29 PG (27-34); Mean Corpuscular Volume 85.6 FL (87-102); Mean Platelet Volume 12.8 FL (9.6-12.0); Monocytes # 0.4 10*3/uL (0.11-0.8); Monocytes % 8.3 % (1.7-12.7); NRBC # 0.06 10*3/uL; Neutrophils # 3.6 10*3/uL (1.4-7.4); Platelet Count 194 T/CUMM (130-400); Red Blood Count 3.69 MC/CUMM (3.8-5.5); Red Cell Distribution Width 16.7 % (9.3-17.3)
[2017-03-25 07:54] LABS: Albumin 1.6 G/DL (3.4-5.0); Bilirubin,Total 1.1 MG/DL (0.2-1.0); Calcium 7.9 MG/DL (8.5-10.1); Osmolality,Calculated 284.5 MOS/KG (273-304); Potassium 3.9 MMOL/L (3.5-5.1); Risk Ratio 4.51; Total Protein 5.7 G/DL (6.4-8.3); VLDL CHOLESTEROL 20.4 MG/DL
[2017-03-25] MEDS: FUROSEMIDE 40 MG/4 ML VIAL IV SCH ×2 (10:28→17:31)
[2017-03-25] MEDS: INSULIN REGULAR 100 UNIT/ML SUBCUT SCH ×4 (10:28→22:38)
[2017-03-25] MEDS: ASCORBIC ACID 500 MG TABLET PO SCH ×2 (10:29→22:37)
[2017-03-25] MEDS: ISOSORBIDE MONONITRATE 30 MG TABLET PO SCH (10:29)
[2017-03-25] MEDS: CARVEDILOL 25 MG TABLET PO SCH ×2 (10:29→17:31)
[2017-03-25] MEDS: GABAPENTIN 100 MG CAPSULE PO SCH ×2 (10:29→22:38)
[2017-03-25] MEDS: SODIUM BICARBONATE 650 MG TABLET PO SCH ×2 (10:29→22:38)
[2017-03-25] MEDS: PANTOPRAZOLE 40 MG TABLET PO SCH (10:29)
[2017-03-25] MEDS: BUDESONIDE/FORMOTEROL 160-4.5 INHALER 6 GM INH SCH ×2 (10:32→22:38)
[2017-03-25] MEDS: DIPHENOXYLATE/ATROPINE 2.5-0.025 MG TABLET PO SCH ×2 (10:32→22:37)
[2017-03-25] MEDS: INSULIN GLARGINE 100 UNIT/ML SUBCUT SCH (22:37)
[2017-03-26] MEDS: METOCLOPRAMIDE 10 MG/2 ML VIAL IV SCH ×2 (00:52→05:34)
[2017-03-26] MEDS: ALBUTEROL 2.5 MG/3 ML NEB RESP TX SCH ×3 (01:56→03:56)
[2017-03-26] MEDS: ALBUTEROL/IPRATROPIUM 3 ML NEB RESP TX SCH ×4 (01:58→13:30)
[2017-03-26 04:18] LABS: Albumin 1.5 G/DL (3.4-5.0); Bilirubin,Total 0.8 MG/DL (0.2-1.0); Calcium 7.8 MG/DL (8.5-10.1); Osmolality,Calculated 290.5 MOS/KG (273-304); Potassium 4.1 MMOL/L (3.5-5.1); Total Protein 5.8 G/DL (6.4-8.3)
[2017-03-26 04:34] LABS: Albumin 1.6 G/DL (3.4-5.0); Bilirubin,Direct 0.38 MG/DL (0.0-0.20); Bilirubin,Indirect 0.4 MG/DL (0.0-1.0); Bilirubin,Total 0.8 MG/DL (0.2-1.0); Total Protein 5.7 G/DL (6.4-8.3)
[2017-03-26] MEDS ORDERED: CIPROFLOXACIN 250 MG TABLET PO SCH (09:00)
[2017-03-26] MEDS: ISOSORBIDE MONONITRATE 30 MG TABLET PO SCH (09:17)
[2017-03-26] MEDS: PANTOPRAZOLE 40 MG TABLET PO SCH (09:17)
[2017-03-26] MEDS: GABAPENTIN 100 MG CAPSULE PO SCH (09:17)
[2017-03-26] MEDS: SODIUM BICARBONATE 650 MG TABLET PO SCH (09:17)
[2017-03-26] MEDS: FUROSEMIDE 40 MG/4 ML VIAL IV SCH ×2 (09:17→16:17)
[2017-03-26] MEDS: ASCORBIC ACID 500 MG TABLET PO SCH (09:18)
[2017-03-26] MEDS: CARVEDILOL 25 MG TABLET PO SCH (09:18)
[2017-03-26] MEDS: INSULIN REGULAR 100 UNIT/ML SUBCUT SCH ×3 (09:18→16:17)
[2017-03-26] MEDS: DIPHENOXYLATE/ATROPINE 2.5-0.025 MG TABLET PO SCH (10:54)
[2017-03-26] MEDS: BUDESONIDE/FORMOTEROL 160-4.5 INHALER 6 GM INH SCH (10:54)
[2017-03-26] MEDS: METOCLOPRAMIDE 10 MG/10 ML UDCUP PO SCH ×2 (10:54→16:17)
[2017-03-26 15:14] VITALS: BP 150/82
== END 2017-03-26 17:04 | disposition home or self-care (01) | DRG 194 ==
LOC: EDBD → EDUNIT# → N.ED 13:47 → N.EDINP 19:51 → N.5E 20:19
PROVIDERS: ADMIT Internal Medicine; ATTEND Internal Medicine

== ENCOUNTER 2017-04-01 22:00 | Inpatient (IN) ==
[2017-04-01] MEDS ORDERED: INSULIN REGULAR 100 UNIT/ML IV STA (22:27)
[2017-04-01] MEDS ORDERED: SODIUM CHLORIDE 0.9% 1,000 ML IV STA ×2 (22:27→23:39)
[2017-04-01 22:59] LABS: Basophils # 0.1 10*3/uL (0.0-0.2); Basophils % 0.9 % (0.0-0.8); Eosinophils # 0.1 10*3/uL (0.0-0.87); Eosinophils % 1.2 % (0.00-10.9); Hematocrit 36.2 VOL% (35.7-47.0); Hemoglobin 11.5 GM/DL (12.0-16.0); Immature Granulocytes % 0.8 %; Immature Granulocytes Absolute 0.05 #; Lymphocytes # 0.9 10*3/uL (1.4-4.0); Lymphocytes % 13.8 % (21.3-54.2); Mean Corpuscular HGB Conc 31.8 GM/DL (32-36); Mean Corpuscular Hemoglobin 28 PG (27-34); Mean Corpuscular Volume 87.2 FL (87-102); Mean Platelet Volume 13.5 FL (9.6-12.0); Monocytes # 0.5 10*3/uL (0.11-0.8); NRBC # 0.07 10*3/uL; Neutrophils # 4.9 10*3/uL (1.4-7.4); Neutrophils % 75.3 % (38.7-73.9); Platelet Count 190 T/CUMM (130-400); Red Blood Count 4.15 MC/CUMM (3.8-5.5); Red Cell Distribution Width 16.6 % (9.3-17.3); White Blood Count 6.5 T/CUMM (4-12)
[2017-04-01 23:19] LABS: Calcium 8.6 MG/DL (8.5-10.1); Magnesium 2.1 MG/DL (1.8-2.4); Osmolality,Calculated 310.4 MOS/KG (273-304); Potassium 5.5 MMOL/L (3.5-5.1)
[2017-04-01] MEDS ORDERED: INSULIN REGULAR 100 UNIT/ML ONE (23:19)
[2017-04-01 23:20] LABS: ABG Base Excess -7.3 MMOL/L (-2.5-2.5); ABG HCO3 18.6 MMOL/L (20-26); ABG Oxygen Saturation 88.7 % (95-100); ABG PH 7.297 (7.35-7.45); ABG PO2 60.3 MM HG (80-95); ABG TCO2 19.8 MMOL/L (23-27); Allen Test Positive
[2017-04-02] MEDS ORDERED: POTASSIUM CHLORIDE RIDER 10 MEQ in PREMIX 1 EACH IV PRN (00:01)
[2017-04-02] MEDS ORDERED: SODIUM CHLORIDE 0.9% 1,000 ML IV ONE (00:01)
[2017-04-02] MEDS ORDERED: SODIUM PHOSPHATE INJ 19.7 MMOL in SODIUM CHLORIDE 0.9% 250 ML IV PRN (00:01)
[2017-04-02] MEDS ORDERED: DEXTROSE 50% 25 GM/50 ML VIAL IV PRN ×2 (00:01)
[2017-04-02] MEDS ORDERED: MAGNESIUM SULF RIDER 2 GM in PREMIX 1 EACH IV PRN (00:01)
[2017-04-02] MEDS ORDERED: MAGNESIUM SULF RIDER 4 GM in PREMIX 1 EACH IV PRN (00:01)
[2017-04-02] MEDS ORDERED: SODIUM BICARB INJ 100 MEQ in STERILE WATER INJ 400 ML IV PRN (00:01)
[2017-04-02] MEDS ORDERED: SODIUM BICARBONATE 50 MEQ/50 ML SYRINGE IV ONE (00:02)
[2017-04-02] MEDS ORDERED: INSULIN REGULAR DRIP 100 ML IV SCH (00:30)
[2017-04-02] MEDS: SODIUM CHLORIDE 0.9% 1,000 ML IV SCH ×2 (03:30→13:00)
[2017-04-02] MEDS ORDERED: SODIUM CHLORIDE 0.9% 1,000 ML IV SCH (05:02)
[2017-04-02 05:38] LABS: Basophils # 0.1 10*3/uL (0.0-0.2); Basophils % 0.8 % (0.0-0.8); Eosinophils # 0.1 10*3/uL (0.0-0.87); Eosinophils % 1.7 % (0.00-10.9); Hematocrit 35.4 VOL% (35.7-47.0); Hemoglobin 11.4 GM/DL (12.0-16.0); Immature Granulocytes % 0.8 %; Immature Granulocytes Absolute 0.05 #; Lymphocytes # 1.1 10*3/uL (1.4-4.0); Lymphocytes % 18.1 % (21.3-54.2); Mean Corpuscular HGB Conc 32.2 GM/DL (32-36); Mean Corpuscular Hemoglobin 28 PG (27-34); Mean Platelet Volume 13.2 FL (9.6-12.0); Monocytes # 0.4 10*3/uL (0.11-0.8); Monocytes % 7.3 % (1.7-12.7); NRBC # 0.12 10*3/uL; Neutrophils # 4.3 10*3/uL (1.4-7.4); Neutrophils % 71.3 % (38.7-73.9); Platelet Count 192 T/CUMM (130-400); Red Blood Count 4.07 MC/CUMM (3.8-5.5); Red Cell Distribution Width 16.7 % (9.3-17.3)
[2017-04-02 06:04] LABS: Calcium 7.8 MG/DL (8.5-10.1); Osmolality,Calculated 291.3 MOS/KG (273-304); Potassium 4.1 MMOL/L (3.5-5.1)
[2017-04-02] MEDS ORDERED: cloNIDine 0.1 MG TABLET PO PRN (06:40)
[2017-04-02] MEDS ORDERED: DEXTROSE 50% 25 GM/50 ML SYRINGE IV ONE ×2 (07:54→10:10)
[2017-04-02] MEDS ORDERED: NIFEdipine 10 MG CAPSULE PO PRN (08:25)
[2017-04-02] MEDS: SODIUM CHLORIDE 0.45% 1,000 ML IV SCH ×2 (09:07→17:27)
[2017-04-02 10:25] LABS: Calcium 8.1 MG/DL (8.5-10.1); Osmolality,Calculated 290.1 MOS/KG (273-304); Potassium 4.2 MMOL/L (3.5-5.1)
[2017-04-02] MEDS ORDERED: INFLUENZA VIRUS VACCINE 0.5 ML SYRINGE IM ONE (12:35)
[2017-04-02] MEDS: INSULIN REGULAR 100 UNIT/ML SUBCUT SCH ×3 (12:53→20:09)
[2017-04-02] MEDS ORDERED: SODIUM ACETATE 50 MEQ in DEXTROSE 5% NACL 0.45% 1,000 ML IV SCH (14:00)
[2017-04-02] MEDS: SODIUM BICARBONATE 650 MG TABLET PO SCH ×2 (14:17→22:13)
[2017-04-02 16:32] LABS: Apearance,Urine Slightly Hazy (Clear); Bilirubin,Urine Negative (Negative); Blood, Urine Moderate mg/dL (Negative); Glucose,Urine (UA) >=500 mg/dL (Negative); Ketones,Urine Negative (Negative); Nitrite,Urine Negative (Negative); Protein,Urine >=500 MG/DL; RBC,Urine 124 /HPF (0-4); Squamous Epithelial Cell,Urine Occasional /HPF (0-10); Urine Color Amber (Yellow); WBC,Urine 62 /HPF (0-6)
[2017-04-02 17:08] LABS: Calcium 7.9 MG/DL (8.5-10.1); Osmolality,Calculated 290.8 MOS/KG (273-304)
[2017-04-02] MEDS ORDERED: NITROGLYCERIN SL 0.4 MG TABLET SL PRN (18:07)
[2017-04-02] MEDS ORDERED: ALBUTEROL 2.5 MG/3 ML NEB RESP TX PRN (18:07)
[2017-04-02] MEDS: METOCLOPRAMIDE 10 MG/10 ML UDCUP PO SCH ×2 (18:37→22:13)
[2017-04-02] MEDS ORDERED: GABAPENTIN 100 MG CAPSULE PO ONE (19:36)
[2017-04-02] MEDS: CIPROFLOXACIN 250 MG TABLET PO SCH (22:13)
[2017-04-02] MEDS: GABAPENTIN 100 MG CAPSULE PO SCH (22:14)
[2017-04-02] MEDS: INSULIN GLARGINE 100 UNIT/ML SUBCUT SCH (22:14)
[2017-04-02] MEDS: ASCORBIC ACID 500 MG TABLET PO SCH (22:14)
[2017-04-02] MEDS: MAGNESIUM OXIDE 400 MG TABLET PO SCH (22:14)
[2017-04-02] MEDS: CARVEDILOL 25 MG TABLET PO SCH (22:15)
[2017-04-02] MEDS: BUDESONIDE/FORMOTEROL 160-4.5 INHALER 6 GM INH SCH (22:21)
[2017-04-02] MEDS: HYDROCORTISONE 0.5% CREAM 28.35 GM TUBE TOP PRN (22:22)
[2017-04-03] MEDS: INSULIN REGULAR 100 UNIT/ML SUBCUT SCH ×5 (01:34→21:54)
[2017-04-03] MEDS: SODIUM CHLORIDE 0.45% 1,000 ML IV SCH ×2 (01:35→09:49)
[2017-04-03 06:16] LABS: Calcium 8.1 MG/DL (8.5-10.1); Magnesium 2.1 MG/DL (1.8-2.4); Osmolality,Calculated 282.8 MOS/KG (273-304); Potassium 4.8 MMOL/L (3.5-5.1)
[2017-04-03] MEDS ORDERED: BROMFENAC SODIUM LEFT EYE SCH (09:00)
[2017-04-03] MEDS: ASCORBIC ACID 500 MG TABLET PO SCH ×2 (09:30→21:53)
[2017-04-03] MEDS: CIPROFLOXACIN 250 MG TABLET PO SCH ×2 (09:31→21:53)
[2017-04-03] MEDS: MAGNESIUM OXIDE 400 MG TABLET PO SCH ×2 (09:32→21:54)
[2017-04-03] MEDS: ISOSORBIDE MONONITRATE 30 MG TABLET PO SCH (09:32)
[2017-04-03] MEDS: CARVEDILOL 25 MG TABLET PO SCH ×2 (09:33→21:53)
[2017-04-03] MEDS: GABAPENTIN 100 MG CAPSULE PO SCH ×2 (09:33→21:53)
[2017-04-03] MEDS: METOCLOPRAMIDE 10 MG/10 ML UDCUP PO SCH ×4 (09:35→21:54)
[2017-04-03] MEDS: BUDESONIDE/FORMOTEROL 160-4.5 INHALER 6 GM INH SCH ×2 (09:37→21:54)
[2017-04-03] MEDS: SODIUM BICARBONATE 650 MG TABLET PO SCH ×2 (09:44→21:52)
[2017-04-03] MEDS: POTASSIUM CHLORIDE 20 MEQ TABLET PO SCH (09:47)
[2017-04-03] MEDS: HYDROCORTISONE 0.5% CREAM 28.35 GM TUBE TOP PRN ×3 (10:40→21:55)
[2017-04-03] MEDS: INSULIN GLARGINE 100 UNIT/ML SUBCUT SCH (21:55)
[2017-04-04 06:15] LABS: Calcium 8.1 MG/DL (8.5-10.1); Magnesium 2.2 MG/DL (1.8-2.4); Osmolality,Calculated 280.8 MOS/KG (273-304)
[2017-04-04] MEDS: METOCLOPRAMIDE 10 MG/10 ML UDCUP PO SCH ×2 (07:06→12:50)
[2017-04-04] MEDS: INSULIN REGULAR 100 UNIT/ML SUBCUT SCH ×2 (08:03→12:50)
[2017-04-04] MEDS: POTASSIUM CHLORIDE 20 MEQ TABLET PO SCH (08:55)
[2017-04-04] MEDS: SODIUM BICARBONATE 650 MG TABLET PO SCH (08:56)
[2017-04-04] MEDS: CARVEDILOL 25 MG TABLET PO SCH (08:56)
[2017-04-04] MEDS: ISOSORBIDE MONONITRATE 30 MG TABLET PO SCH (08:57)
[2017-04-04] MEDS: GABAPENTIN 100 MG CAPSULE PO SCH (08:58)
[2017-04-04] MEDS: ASCORBIC ACID 500 MG TABLET PO SCH (08:58)
[2017-04-04] MEDS: CIPROFLOXACIN 250 MG TABLET PO SCH (08:59)
[2017-04-04] MEDS: MAGNESIUM OXIDE 400 MG TABLET PO SCH (09:00)
[2017-04-04] MEDS: BUDESONIDE/FORMOTEROL 160-4.5 INHALER 6 GM INH SCH (09:00)
[2017-04-04] MEDS ORDERED: INSULIN GLARGINE 100 UNIT/ML SUBCUT SCH (10:08)
[2017-04-04 11:55] VITALS: BP 154/85
== END 2017-04-04 13:55 | disposition home or self-care (01) | DRG 420 ==
LOC: EDBD → EDUNIT# → N.ED 22:00 → SUATTDRO 04-02 00:04 → N.EDINP 04-02 00:04 → N.ICU 04-02 12:25 → N.4E 04-02 17:58
PROVIDERS: ADMIT Internal Medicine; ATTEND Internal Medicine

== ENCOUNTER 2017-04-05 20:47 | Inpatient (IN) ==
[2017-04-05] MEDS ORDERED: FUROSEMIDE 40 MG/4 ML VIAL IV STA (22:21)
[2017-04-05] MEDS ORDERED: FUROSEMIDE 40 MG/4 ML VIAL ONE (22:53)
[2017-04-05 23:24] LABS: Basophils % 0.6 % (0.0-0.8); Eosinophils # 0.1 10*3/uL (0.0-0.87); Eosinophils % 1.8 % (0.00-10.9); Hematocrit 35.6 VOL% (35.7-47.0); Hemoglobin 11.2 GM/DL (12.0-16.0); Immature Granulocytes % 0.7 %; Immature Granulocytes Absolute 0.05 #; Lymphocytes # 0.7 10*3/uL (1.4-4.0); Lymphocytes % 10.5 % (21.3-54.2); Mean Corpuscular HGB Conc 31.5 GM/DL (32-36); Mean Corpuscular Hemoglobin 28 PG (27-34); Mean Corpuscular Volume 87.7 FL (87-102); Mean Platelet Volume 13.5 FL (9.6-12.0); Monocytes # 0.6 10*3/uL (0.11-0.8); Monocytes % 8.4 % (1.7-12.7); NRBC # 0.05 10*3/uL; Neutrophils # 5.3 10*3/uL (1.4-7.4); Platelet Count 199 T/CUMM (130-400); Red Blood Count 4.06 MC/CUMM (3.8-5.5); Red Cell Distribution Width 17.2 % (9.3-17.3); White Blood Count 6.8 T/CUMM (4-12)
[2017-04-05 23:57] LABS: Albumin 1.7 G/DL (3.4-5.0); Bilirubin,Total 0.9 MG/DL (0.2-1.0); Osmolality,Calculated 299.8 MOS/KG (273-304); Potassium 5.5 MMOL/L (3.5-5.1); Total Protein 6.7 G/DL (6.4-8.3)
[2017-04-06] MEDS ORDERED: FUROSEMIDE 40 MG/4 ML VIAL IV STA (00:38)
[2017-04-06] MEDS ORDERED: GLUCAGON 1 MG VIAL IM PRN (01:51)
[2017-04-06] MEDS ORDERED: DEXTROSE 50% 25 GM/50 ML VIAL IV PRN (01:51)
[2017-04-06] MEDS ORDERED: ONDANSETRON 4 MG/2 ML VIAL IV PRN (01:51)
[2017-04-06] MEDS ORDERED: ASPIRIN 325 MG TABLET PO STA (02:06)
[2017-04-06] MEDS: SODIUM POLYSTYRENE SULFATE 15 GM/60 ML BOTTLE PO SCH ×3 (03:47→18:13)
[2017-04-06] MEDS ORDERED: INSULIN REGULAR 100 UNIT/ML SUBCUT ONE (04:13)
[2017-04-06 05:41] LABS: Basophils % 0.6 % (0.0-0.8); Eosinophils # 0.2 10*3/uL (0.0-0.87); Eosinophils % 2.4 % (0.00-10.9); Hematocrit 32.7 VOL% (35.7-47.0); Hemoglobin 10.5 GM/DL (12.0-16.0); Immature Granulocytes Absolute 0.07 #; Lymphocytes % 15.1 % (21.3-54.2); Mean Corpuscular HGB Conc 32.1 GM/DL (32-36); Mean Corpuscular Hemoglobin 28 PG (27-34); Mean Corpuscular Volume 87.4 FL (87-102); Mean Platelet Volume 13.2 FL (9.6-12.0); Monocytes # 0.7 10*3/uL (0.11-0.8); Monocytes % 9.9 % (1.7-12.7); NRBC # 0.06 10*3/uL; Neutrophils # 4.8 10*3/uL (1.4-7.4); Platelet Count 207 T/CUMM (130-400); Red Blood Count 3.74 MC/CUMM (3.8-5.5); Red Cell Distribution Width 17.2 % (9.3-17.3); White Blood Count 6.8 T/CUMM (4-12)
[2017-04-06 06:26] LABS: Albumin 1.6 G/DL (3.4-5.0); Calcium 7.8 MG/DL (8.5-10.1); Magnesium 2.4 MG/DL (1.8-2.4); Osmolality,Calculated 298.8 MOS/KG (273-304); Total Protein 6.4 G/DL (6.4-8.3)
[2017-04-06] MEDS: ENOXAPARIN 30 MG/0.3 ML SYRINGE SUBCUT SCH (06:35)
[2017-04-06] MEDS: INSULIN LISPRO 100 UNIT/ML SUBCUT SCH ×4 (10:16→20:53)
[2017-04-06] MEDS: FUROSEMIDE 40 MG/4 ML VIAL IV SCH ×2 (10:18→16:55)
[2017-04-06] MEDS: PANTOPRAZOLE 40 MG TABLET PO SCH (10:18)
[2017-04-06] MEDS ORDERED: NITROGLYCERIN SL 0.4 MG TABLET SL PRN (17:04)
[2017-04-06] MEDS ORDERED: ALBUTEROL 2.5 MG/3 ML NEB RESP TX SCH (17:04)
[2017-04-06] MEDS: ALBUTEROL 2.5 MG/3 ML NEB RESP TX SCH ×2 (20:02→23:32)
[2017-04-06] MEDS: ASCORBIC ACID 500 MG TABLET PO SCH (20:52)
[2017-04-06] MEDS: CIPROFLOXACIN 250 MG TABLET PO SCH (20:53)
[2017-04-06] MEDS: SODIUM BICARBONATE 650 MG TABLET PO SCH (20:53)
[2017-04-06] MEDS: GABAPENTIN 100 MG CAPSULE PO SCH (20:53)
[2017-04-06] MEDS: CARVEDILOL 25 MG TABLET PO SCH (20:53)
[2017-04-06] MEDS: METOCLOPRAMIDE 10 MG/10 ML UDCUP PO SCH (20:54)
[2017-04-06] MEDS: INSULIN GLARGINE 100 UNIT/ML SUBCUT SCH (20:54)
[2017-04-06] MEDS: MAGNESIUM OXIDE 400 MG TABLET PO SCH (20:55)
[2017-04-06] MEDS: BUDESONIDE/FORMOTEROL 160-4.5 INHALER 6 GM INH SCH (20:55)
[2017-04-07] MEDS: ALBUTEROL 2.5 MG/3 ML NEB RESP TX SCH ×5 (03:23→20:44)
[2017-04-07] MEDS: SODIUM POLYSTYRENE SULFATE 15 GM/60 ML BOTTLE PO SCH ×2 (03:42→11:41)
[2017-04-07] MEDS: INSULIN LISPRO 100 UNIT/ML SUBCUT SCH ×4 (08:16→21:46)
[2017-04-07] MEDS ORDERED: BROMFENAC SODIUM LEFT EYE SCH (09:00)
[2017-04-07] MEDS: SODIUM BICARBONATE 650 MG TABLET PO SCH ×2 (09:01→21:26)
[2017-04-07] MEDS: ISOSORBIDE MONONITRATE 30 MG TABLET PO SCH (09:02)
[2017-04-07] MEDS: CARVEDILOL 25 MG TABLET PO SCH ×2 (09:02→21:26)
[2017-04-07] MEDS: GABAPENTIN 100 MG CAPSULE PO SCH ×2 (09:12→21:26)
[2017-04-07] MEDS: PANTOPRAZOLE 40 MG TABLET PO SCH (09:12)
[2017-04-07] MEDS: MAGNESIUM OXIDE 400 MG TABLET PO SCH ×2 (09:13→21:26)
[2017-04-07] MEDS: CIPROFLOXACIN 250 MG TABLET PO SCH ×2 (09:13→21:26)
[2017-04-07] MEDS: ASCORBIC ACID 500 MG TABLET PO SCH ×2 (09:14→21:26)
[2017-04-07] MEDS: METOCLOPRAMIDE 10 MG/10 ML UDCUP PO SCH ×4 (09:15→21:25)
[2017-04-07] MEDS: POTASSIUM CHLORIDE 20 MEQ TABLET PO SCH (09:20)
[2017-04-07] MEDS: ENOXAPARIN 30 MG/0.3 ML SYRINGE SUBCUT SCH (09:21)
[2017-04-07] MEDS: FUROSEMIDE 40 MG/4 ML VIAL IV SCH ×2 (09:22→17:10)
[2017-04-07] MEDS: BUDESONIDE/FORMOTEROL 160-4.5 INHALER 6 GM INH SCH ×2 (09:27→21:26)
[2017-04-07 10:45] LABS: Albumin 1.6 G/DL (3.4-5.0); Bilirubin,Total 1.2 MG/DL (0.2-1.0); Calcium 7.9 MG/DL (8.5-10.1); Magnesium 1.9 MG/DL (1.8-2.4); Osmolality,Calculated 288.7 MOS/KG (273-304); Potassium 3.7 MMOL/L (3.5-5.1)
[2017-04-07] MEDS ORDERED: HYDROCORTISONE 1% CREAM 28 GM TUBE TOP PRN (13:30)
[2017-04-07] MEDS: IBUPROFEN 400 MG TABLET PO PRN (21:26)
[2017-04-07] MEDS: INSULIN GLARGINE 100 UNIT/ML SUBCUT SCH (21:46)
[2017-04-08] MEDS: ALBUTEROL 2.5 MG/3 ML NEB RESP TX SCH ×6 (02:10→20:23)
[2017-04-08 05:12] LABS: Calcium 7.6 MG/DL (8.5-10.1); Magnesium 1.9 MG/DL (1.8-2.4); Osmolality,Calculated 288.5 MOS/KG (273-304); Potassium 4.5 MMOL/L (3.5-5.1)
[2017-04-08] MEDS: METOCLOPRAMIDE 10 MG/10 ML UDCUP PO SCH ×4 (07:39→20:45)
[2017-04-08] MEDS: INSULIN LISPRO 100 UNIT/ML SUBCUT SCH ×4 (08:22→20:50)
[2017-04-08] MEDS: SODIUM BICARBONATE 650 MG TABLET PO SCH ×2 (09:26→20:44)
[2017-04-08] MEDS: ISOSORBIDE MONONITRATE 30 MG TABLET PO SCH (09:26)
[2017-04-08] MEDS: CARVEDILOL 25 MG TABLET PO SCH ×2 (09:26→20:45)
[2017-04-08] MEDS: GABAPENTIN 100 MG CAPSULE PO SCH ×2 (09:27→20:44)
[2017-04-08] MEDS: PANTOPRAZOLE 40 MG TABLET PO SCH (09:28)
[2017-04-08] MEDS: MAGNESIUM OXIDE 400 MG TABLET PO SCH ×2 (09:28→20:45)
[2017-04-08] MEDS: CIPROFLOXACIN 250 MG TABLET PO SCH ×2 (09:28→20:45)
[2017-04-08] MEDS: IBUPROFEN 400 MG TABLET PO PRN (09:29)
[2017-04-08] MEDS: ASCORBIC ACID 500 MG TABLET PO SCH ×2 (09:30→20:45)
[2017-04-08] MEDS: POTASSIUM CHLORIDE 20 MEQ TABLET PO SCH (09:37)
[2017-04-08] MEDS: ENOXAPARIN 30 MG/0.3 ML SYRINGE SUBCUT SCH (09:39)
[2017-04-08] MEDS: BUDESONIDE/FORMOTEROL 160-4.5 INHALER 6 GM INH SCH ×2 (09:40→20:51)
[2017-04-08] MEDS: FUROSEMIDE 40 MG/4 ML VIAL IV SCH ×2 (09:40→16:33)
[2017-04-08] MEDS: SPIRONOLACTONE 25 MG TABLET PO SCH (15:24)
[2017-04-08] MEDS: cloNIDine 0.1 MG TABLET PO PRN (16:32)
[2017-04-08] MEDS: INSULIN GLARGINE 100 UNIT/ML SUBCUT SCH (20:49)
[2017-04-09] MEDS: ALBUTEROL 2.5 MG/3 ML NEB RESP TX SCH ×6 (00:22→21:49)
[2017-04-09] MEDS: ACETAMINOPHEN 325 MG TABLET PO PRN ×2 (04:29→21:11)
[2017-04-09] MEDS: METOCLOPRAMIDE 10 MG/10 ML UDCUP PO SCH ×4 (09:25→21:11)
[2017-04-09] MEDS: SPIRONOLACTONE 25 MG TABLET PO SCH (09:26)
[2017-04-09] MEDS: SODIUM BICARBONATE 650 MG TABLET PO SCH ×2 (09:26→21:11)
[2017-04-09] MEDS: PANTOPRAZOLE 40 MG TABLET PO SCH (09:26)
[2017-04-09] MEDS: POTASSIUM CHLORIDE 20 MEQ TABLET PO SCH (09:26)
[2017-04-09] MEDS: ASCORBIC ACID 500 MG TABLET PO SCH ×2 (09:26→21:18)
[2017-04-09] MEDS: CIPROFLOXACIN 250 MG TABLET PO SCH ×2 (09:26→21:11)
[2017-04-09] MEDS: MAGNESIUM OXIDE 400 MG TABLET PO SCH ×2 (09:26→21:11)
[2017-04-09] MEDS: GABAPENTIN 100 MG CAPSULE PO SCH ×2 (09:27→21:12)
[2017-04-09] MEDS: FUROSEMIDE 40 MG/4 ML VIAL IV SCH ×2 (09:27→17:14)
[2017-04-09] MEDS: CARVEDILOL 25 MG TABLET PO SCH ×2 (09:27→21:12)
[2017-04-09] MEDS: ISOSORBIDE MONONITRATE 30 MG TABLET PO SCH (09:27)
[2017-04-09] MEDS: ENOXAPARIN 30 MG/0.3 ML SYRINGE SUBCUT SCH (09:27)
[2017-04-09] MEDS: INSULIN LISPRO 100 UNIT/ML SUBCUT SCH ×4 (09:30→21:15)
[2017-04-09] MEDS: BUDESONIDE/FORMOTEROL 160-4.5 INHALER 6 GM INH SCH ×2 (09:32→21:19)
[2017-04-09] MEDS: ALBUMIN 25% 25 GM in PREMIX 1 EACH IV SCH (15:56)
[2017-04-09] MEDS: metOLazone 5 MG TABLET PO SCH (15:58)
[2017-04-09] MEDS: amLODIPine 5 MG TABLET PO SCH (15:58)
[2017-04-09] MEDS: INSULIN GLARGINE 100 UNIT/ML SUBCUT SCH (21:15)
[2017-04-10] MEDS: ALBUMIN 25% 25 GM in PREMIX 1 EACH IV SCH ×4 (00:05→22:43)
[2017-04-10] MEDS: ALBUTEROL 2.5 MG/3 ML NEB RESP TX SCH ×6 (00:29→20:23)
[2017-04-10 05:21] LABS: Calcium 8.1 MG/DL (8.5-10.1); Magnesium 2.1 MG/DL (1.8-2.4); Osmolality,Calculated 283.8 MOS/KG (273-304); Potassium 4.6 MMOL/L (3.5-5.1)
[2017-04-10] MEDS: INSULIN LISPRO 100 UNIT/ML SUBCUT SCH ×4 (07:32→21:16)
[2017-04-10] MEDS ORDERED: FUROSEMIDE 20 MG/2 ML VIAL ONE (08:07)
[2017-04-10] MEDS: ENOXAPARIN 30 MG/0.3 ML SYRINGE SUBCUT SCH (08:32)
[2017-04-10] MEDS: MAGNESIUM OXIDE 400 MG TABLET PO SCH ×2 (08:33→21:13)
[2017-04-10] MEDS: METOCLOPRAMIDE 10 MG/10 ML UDCUP PO SCH ×4 (08:33→21:13)
[2017-04-10] MEDS: POTASSIUM CHLORIDE 20 MEQ TABLET PO SCH (08:33)
[2017-04-10] MEDS: SPIRONOLACTONE 25 MG TABLET PO SCH (08:33)
[2017-04-10] MEDS: SODIUM BICARBONATE 650 MG TABLET PO SCH ×2 (08:33→21:13)
[2017-04-10] MEDS: GABAPENTIN 100 MG CAPSULE PO SCH ×2 (08:33→21:13)
[2017-04-10] MEDS: amLODIPine 5 MG TABLET PO SCH (08:34)
[2017-04-10] MEDS: PANTOPRAZOLE 40 MG TABLET PO SCH (08:34)
[2017-04-10] MEDS: metOLazone 5 MG TABLET PO SCH (08:34)
[2017-04-10] MEDS: CARVEDILOL 25 MG TABLET PO SCH ×2 (08:34→21:13)
[2017-04-10] MEDS: ISOSORBIDE MONONITRATE 30 MG TABLET PO SCH (08:34)
[2017-04-10] MEDS: ASCORBIC ACID 500 MG TABLET PO SCH ×2 (08:34→21:13)
[2017-04-10] MEDS: BUDESONIDE/FORMOTEROL 160-4.5 INHALER 6 GM INH SCH ×2 (08:40→21:17)
[2017-04-10] MEDS: FUROSEMIDE 40 MG/4 ML VIAL IV SCH ×2 (10:17→16:28)
[2017-04-10] MEDS: INSULIN GLARGINE 100 UNIT/ML SUBCUT SCH (21:16)
[2017-04-11] MEDS: ALBUTEROL 2.5 MG/3 ML NEB RESP TX SCH ×6 (00:31→20:27)
[2017-04-11 08:02] LABS: Calcium 8.8 MG/DL (8.5-10.1); Magnesium 2.2 MG/DL (1.8-2.4); Osmolality,Calculated 291.7 MOS/KG (273-304); Potassium 4.8 MMOL/L (3.5-5.1)
[2017-04-11] MEDS: INSULIN LISPRO 100 UNIT/ML SUBCUT SCH ×4 (08:18→21:36)
[2017-04-11] MEDS ORDERED: FUROSEMIDE 20 MG/2 ML VIAL ONE (08:31)
[2017-04-11] MEDS: BUDESONIDE/FORMOTEROL 160-4.5 INHALER 6 GM INH SCH ×2 (09:50→21:37)
[2017-04-11] MEDS: ALBUMIN 25% 25 GM in PREMIX 1 EACH IV SCH ×3 (09:50→23:15)
[2017-04-11] MEDS: METOCLOPRAMIDE 10 MG/10 ML UDCUP PO SCH ×4 (09:51→21:34)
[2017-04-11] MEDS: FUROSEMIDE 40 MG/4 ML VIAL IV SCH ×2 (09:51→18:04)
[2017-04-11] MEDS: POTASSIUM CHLORIDE 20 MEQ TABLET PO SCH (09:51)
[2017-04-11] MEDS: CARVEDILOL 25 MG TABLET PO SCH ×2 (09:52→21:31)
[2017-04-11] MEDS: ISOSORBIDE MONONITRATE 30 MG TABLET PO SCH (09:52)
[2017-04-11] MEDS: PANTOPRAZOLE 40 MG TABLET PO SCH (09:52)
[2017-04-11] MEDS: amLODIPine 5 MG TABLET PO SCH (09:52)
[2017-04-11] MEDS: SODIUM BICARBONATE 650 MG TABLET PO SCH ×2 (09:52→21:31)
[2017-04-11] MEDS: MAGNESIUM OXIDE 400 MG TABLET PO SCH ×2 (09:52→21:31)
[2017-04-11] MEDS: ASCORBIC ACID 500 MG TABLET PO SCH ×2 (09:52→21:31)
[2017-04-11] MEDS: SPIRONOLACTONE 25 MG TABLET PO SCH (09:52)
[2017-04-11] MEDS: GABAPENTIN 100 MG CAPSULE PO SCH ×2 (09:52→21:31)
[2017-04-11] MEDS: metOLazone 5 MG TABLET PO SCH (09:53)
[2017-04-11] MEDS: ENOXAPARIN 30 MG/0.3 ML SYRINGE SUBCUT SCH (09:53)
[2017-04-11] MEDS: INSULIN GLARGINE 100 UNIT/ML SUBCUT SCH (21:35)
[2017-04-12] MEDS: ALBUTEROL 2.5 MG/3 ML NEB RESP TX SCH ×7 (00:29→23:50)
[2017-04-12] MEDS ORDERED: FLUCONAZOLE 100 MG TABLET PO ONE (09:02)
[2017-04-12] MEDS: PANTOPRAZOLE 40 MG TABLET PO SCH (09:27)
[2017-04-12] MEDS: metOLazone 5 MG TABLET PO SCH (09:27)
[2017-04-12] MEDS: CARVEDILOL 25 MG TABLET PO SCH ×2 (09:27→21:51)
[2017-04-12] MEDS: amLODIPine 5 MG TABLET PO SCH (09:28)
[2017-04-12] MEDS: cloNIDine 0.1 MG TABLET PO PRN (09:28)
[2017-04-12] MEDS: GABAPENTIN 100 MG CAPSULE PO SCH ×2 (09:29→21:51)
[2017-04-12] MEDS: ISOSORBIDE MONONITRATE 30 MG TABLET PO SCH (09:29)
[2017-04-12] MEDS: SPIRONOLACTONE 25 MG TABLET PO SCH (09:29)
[2017-04-12] MEDS: MAGNESIUM OXIDE 400 MG TABLET PO SCH ×2 (09:30→21:51)
[2017-04-12] MEDS: ASCORBIC ACID 500 MG TABLET PO SCH ×2 (09:30→21:50)
[2017-04-12] MEDS: SODIUM BICARBONATE 650 MG TABLET PO SCH ×2 (09:31→21:50)
[2017-04-12] MEDS: POTASSIUM CHLORIDE 20 MEQ TABLET PO SCH (09:32)
[2017-04-12] MEDS: METOCLOPRAMIDE 10 MG/10 ML UDCUP PO SCH ×4 (09:35→21:52)
[2017-04-12] MEDS: INSULIN LISPRO 100 UNIT/ML SUBCUT SCH ×4 (09:36→21:53)
[2017-04-12] MEDS: ENOXAPARIN 30 MG/0.3 ML SYRINGE SUBCUT SCH (09:37)
[2017-04-12] MEDS: BUDESONIDE/FORMOTEROL 160-4.5 INHALER 6 GM INH SCH ×2 (09:42→22:05)
[2017-04-12] MEDS: FUROSEMIDE 40 MG/4 ML VIAL IV SCH (09:52)
[2017-04-12] MEDS: ALBUMIN 25% 25 GM in PREMIX 1 EACH IV SCH ×3 (09:52→21:55)
[2017-04-12] MEDS: FUROSEMIDE 80 MG TABLET PO SCH (16:59)
[2017-04-12] MEDS: INSULIN GLARGINE 100 UNIT/ML SUBCUT SCH (21:53)
[2017-04-13] MEDS: ACETAMINOPHEN 325 MG TABLET PO PRN (00:08)
[2017-04-13] MEDS: ALBUTEROL 2.5 MG/3 ML NEB RESP TX SCH ×3 (03:09→11:28)
[2017-04-13] MEDS: ALBUMIN 25% 25 GM in PREMIX 1 EACH IV SCH ×2 (06:17→14:00)
[2017-04-13 07:16] LABS: Basophils % 0.6 % (0.0-0.8); Eosinophils # 0.1 10*3/uL (0.0-0.87); Eosinophils % 2.3 % (0.00-10.9); Hematocrit 28.6 VOL% (35.7-47.0); Hemoglobin 9.5 GM/DL (12.0-16.0); Immature Granulocytes % 0.8 %; Immature Granulocytes Absolute 0.04 #; Lymphocytes # 0.6 10*3/uL (1.4-4.0); Lymphocytes % 11.7 % (21.3-54.2); Mean Corpuscular HGB Conc 33.2 GM/DL (32-36); Mean Corpuscular Hemoglobin 28 PG (27-34); Mean Corpuscular Volume 84.9 FL (87-102); Mean Platelet Volume 13.1 FL (9.6-12.0); Monocytes # 0.7 10*3/uL (0.11-0.8); Monocytes % 12.8 % (1.7-12.7); NRBC # 0.02 10*3/uL; Neutrophils # 3.8 10*3/uL (1.4-7.4); Neutrophils % 71.8 % (38.7-73.9); Platelet Count 197 T/CUMM (130-400); Red Blood Count 3.37 MC/CUMM (3.8-5.5); Red Cell Distribution Width 17.2 % (9.3-17.3); White Blood Count 5.3 T/CUMM (4-12)
[2017-04-13 07:38] LABS: Calcium 8.5 MG/DL (8.5-10.1); Potassium 4.6 MMOL/L (3.5-5.1)
[2017-04-13] MEDS: amLODIPine 5 MG TABLET PO SCH (08:55)
[2017-04-13] MEDS: metOLazone 5 MG TABLET PO SCH (08:55)
[2017-04-13] MEDS: GABAPENTIN 100 MG CAPSULE PO SCH (08:55)
[2017-04-13] MEDS: CARVEDILOL 25 MG TABLET PO SCH (08:55)
[2017-04-13] MEDS: ISOSORBIDE MONONITRATE 30 MG TABLET PO SCH (08:56)
[2017-04-13] MEDS: FUROSEMIDE 80 MG TABLET PO SCH (08:56)
[2017-04-13] MEDS: PANTOPRAZOLE 40 MG TABLET PO SCH (08:57)
[2017-04-13] MEDS: SPIRONOLACTONE 25 MG TABLET PO SCH (08:57)
[2017-04-13] MEDS: ASCORBIC ACID 500 MG TABLET PO SCH (08:57)
[2017-04-13] MEDS: MAGNESIUM OXIDE 400 MG TABLET PO SCH (08:58)
[2017-04-13] MEDS: SODIUM BICARBONATE 650 MG TABLET PO SCH (08:58)
[2017-04-13] MEDS: IBUPROFEN 400 MG TABLET PO PRN (09:02)
[2017-04-13] MEDS: POTASSIUM CHLORIDE 20 MEQ TABLET PO SCH (09:03)
[2017-04-13] MEDS: METOCLOPRAMIDE 10 MG/10 ML UDCUP PO SCH ×2 (09:04→12:16)
[2017-04-13] MEDS: BUDESONIDE/FORMOTEROL 160-4.5 INHALER 6 GM INH SCH (09:05)
[2017-04-13] MEDS: INSULIN LISPRO 100 UNIT/ML SUBCUT SCH ×2 (09:06→12:17)
[2017-04-13] MEDS: ENOXAPARIN 30 MG/0.3 ML SYRINGE SUBCUT SCH (09:07)
[2017-04-13 12:14] VITALS: BP 165/88
== END 2017-04-13 14:00 | disposition home or self-care (01) | DRG 194 ==
LOC: EDUNIT# → EDBD → N.ED 20:47 → N.EDINP 20:47 → N.4E 04-06 02:24 → SUATTDRO 04-07 14:59
PROVIDERS: ADMIT Family Medicine; ATTEND Internal Medicine

== ENCOUNTER 2017-04-13 17:40 | Inpatient (IN) ==
[2017-04-13 18:23] LABS: Basophils % 0.6 % (0.0-0.8); Eosinophils # 0.1 10*3/uL (0.0-0.87); Eosinophils % 1.5 % (0.00-10.9); Hematocrit 31.8 VOL% (35.7-47.0); Hemoglobin 10.2 GM/DL (12.0-16.0); Immature Granulocytes % 0.5 %; Immature Granulocytes Absolute 0.03 #; Lymphocytes # 0.5 10*3/uL (1.4-4.0); Lymphocytes % 8.1 % (21.3-54.2); Mean Corpuscular HGB Conc 32.1 GM/DL (32-36); Mean Corpuscular Hemoglobin 28 PG (27-34); Mean Corpuscular Volume 87.1 FL (87-102); Mean Platelet Volume 13.2 FL (9.6-12.0); Monocytes # 0.8 10*3/uL (0.11-0.8); Monocytes % 11.8 % (1.7-12.7); Neutrophils # 5.1 10*3/uL (1.4-7.4); Neutrophils % 77.5 % (38.7-73.9); Platelet Count 218 T/CUMM (130-400); Red Blood Count 3.65 MC/CUMM (3.8-5.5); Red Cell Distribution Width 17.4 % (9.3-17.3); White Blood Count 6.6 T/CUMM (4-12)
[2017-04-13 18:30] LABS: INR 1.1; PT Patient Result 11.2 SECS; Partial Thromboplastin Time 27.8 SECS (0-40)
[2017-04-13 18:49] LABS: Alanine Aminotransferase 38 U/L (13-56); Albumin 3.6 G/DL (3.4-5.0); Alkaline Phosphatase 958 U/L (45-117); Aspartate Amino Transferase 53 U/L (0-37); Blood Urea Nitrogen 55 MG/DL (7-18); Calcium 9.1 MG/DL (8.5-10.1); Glucose 136 MG/DL (74-106); Osmolality,Calculated 286.1 MOS/KG (273-304); Potassium 5.2 MMOL/L (3.5-5.1); Sodium 135 MMOL/L (136-145); Total Protein 8.3 G/DL (6.4-8.3); Troponin I Only 0.023 NG/ML (0.00-0.045)
[2017-04-13 19:11] LABS: Apearance,Urine Slightly Hazy (Clear); Bacteria,Urine Moderate /HPF (Few); Bilirubin,Urine Negative (Negative); Blood, Urine Negative (Negative); Glucose,Urine (UA) 50 mg/dL (Negative); Ketones,Urine Negative (Negative); Mucus,Urine Occasional /LPF (Occasional); Nitrite,Urine Negative (Negative); Protein,Urine >=500 MG/DL; RBC,Urine 14 /HPF (0-4); Squamous Epithelial Cell,Urine Occasional /HPF (0-10); Urine Color Amber (Yellow); Urine Specific Gravity 1.009 (1.001-1.035); WBC,Urine 3 /HPF (0-6)
[2017-04-13] MEDS ORDERED: ALBUTEROL 2.5 MG/3 ML NEB RESP TX PRN (21:16)
[2017-04-13] MEDS ORDERED: NITROGLYCERIN SL 0.4 MG TABLET SL PRN (21:16)
[2017-04-13] MEDS ORDERED: GLUCAGON 1 MG VIAL IM PRN (22:00)
[2017-04-13] MEDS ORDERED: DEXTROSE 50% 25 GM/50 ML VIAL IV PRN (22:00)
[2017-04-14] MEDS: BUMETANIDE 1 MG/4 ML VIAL IV SCH ×3 (01:22→20:08)
[2017-04-14 06:25] LABS: Basophils % 0.6 % (0.0-0.8); Eosinophils # 0.1 10*3/uL (0.0-0.87); Eosinophils % 2.1 % (0.00-10.9); Hemoglobin 10.2 GM/DL (12.0-16.0); Immature Granulocytes % 0.5 %; Immature Granulocytes Absolute 0.03 #; Lymphocytes # 0.7 10*3/uL (1.4-4.0); Lymphocytes % 11.3 % (21.3-54.2); Mean Corpuscular HGB Conc 32.9 GM/DL (32-36); Mean Corpuscular Hemoglobin 28 PG (27-34); Mean Corpuscular Volume 84.5 FL (87-102); Mean Platelet Volume 13.3 FL (9.6-12.0); Monocytes # 0.6 10*3/uL (0.11-0.8); Monocytes % 10.4 % (1.7-12.7); Neutrophils # 4.6 10*3/uL (1.4-7.4); Neutrophils % 75.1 % (38.7-73.9); Platelet Count 235 T/CUMM (130-400); Red Blood Count 3.67 MC/CUMM (3.8-5.5); Red Cell Distribution Width 17.4 % (9.3-17.3); White Blood Count 6.2 T/CUMM (4-12)
[2017-04-14 06:52] LABS: Albumin 3.5 G/DL (3.4-5.0); Bilirubin,Total 4.9 MG/DL (0.2-1.0); Calcium 9.2 MG/DL (8.5-10.1)
[2017-04-14] MEDS ORDERED: FUROSEMIDE 40 MG/4 ML VIAL IV ONE (07:59)
[2017-04-14] MEDS: BUDESONIDE/FORMOTEROL 160-4.5 INHALER 6 GM INH SCH ×2 (08:59→20:13)
[2017-04-14] MEDS: INSULIN LISPRO 100 UNIT/ML SUBCUT SCH ×4 (08:59→21:31)
[2017-04-14] MEDS ORDERED: BROMFENAC SODIUM LEFT EYE SCH (09:00)
[2017-04-14] MEDS: METOCLOPRAMIDE 10 MG/10 ML UDCUP PO SCH ×4 (09:00→20:07)
[2017-04-14] MEDS: GABAPENTIN 100 MG CAPSULE PO SCH ×2 (09:01→20:07)
[2017-04-14] MEDS: cloNIDine 0.1 MG TABLET PO SCH ×2 (09:01→20:07)
[2017-04-14] MEDS: ASCORBIC ACID 500 MG TABLET PO SCH ×2 (09:01→20:08)
[2017-04-14] MEDS: SODIUM BICARBONATE 650 MG TABLET PO SCH ×2 (09:01→20:07)
[2017-04-14] MEDS: MAGNESIUM OXIDE 400 MG TABLET PO SCH ×2 (09:01→20:07)
[2017-04-14] MEDS: ISOSORBIDE MONONITRATE 30 MG TABLET PO SCH (09:01)
[2017-04-14] MEDS: POTASSIUM CHLORIDE 20 MEQ TABLET PO SCH (09:07)
[2017-04-14 14:52] LABS: Bilirubin,Direct 2.88 MG/DL (0.0-0.20)
[2017-04-14] MEDS ORDERED: FLUCONAZOLE 100 MG TABLET PO ONE (21:04)
[2017-04-14] MEDS: INSULIN GLARGINE 100 UNIT/ML SUBCUT SCH (21:31)
[2017-04-15 06:41] LABS: Basophils # 0.1 10*3/uL (0.0-0.2); Basophils % 1.1 % (0.0-0.8); Eosinophils # 0.2 10*3/uL (0.0-0.87); Eosinophils % 2.8 % (0.00-10.9); Hemoglobin 9.8 GM/DL (12.0-16.0); Immature Granulocytes % 0.6 %; Immature Granulocytes Absolute 0.03 #; Lymphocytes # 0.9 10*3/uL (1.4-4.0); Lymphocytes % 16.2 % (21.3-54.2); Mean Corpuscular HGB Conc 32.7 GM/DL (32-36); Mean Corpuscular Hemoglobin 28 PG (27-34); Mean Corpuscular Volume 84.3 FL (87-102); Monocytes # 0.8 10*3/uL (0.11-0.8); Monocytes % 15.2 % (1.7-12.7); Neutrophils # 3.5 10*3/uL (1.4-7.4); Neutrophils % 64.1 % (38.7-73.9); Platelet Count 241 T/CUMM (130-400); Red Blood Count 3.56 MC/CUMM (3.8-5.5); White Blood Count 5.4 T/CUMM (4-12)
[2017-04-15 07:34] LABS: Calcium 9.4 MG/DL (8.5-10.1)
[2017-04-15 07:36] LABS: Albumin 3.2 G/DL (3.4-5.0); Bilirubin,Direct 2.56 MG/DL (0.0-0.20); Bilirubin,Indirect 0.6 MG/DL (0.0-1.0); Bilirubin,Total 3.2 MG/DL (0.2-1.0); Total Protein 6.9 G/DL (6.4-8.3)
[2017-04-15] MEDS: INSULIN LISPRO 100 UNIT/ML SUBCUT SCH ×4 (08:33→21:16)
[2017-04-15] MEDS: MAGNESIUM OXIDE 400 MG TABLET PO SCH ×2 (08:34→20:16)
[2017-04-15] MEDS: METOCLOPRAMIDE 10 MG/10 ML UDCUP PO SCH ×4 (08:34→20:17)
[2017-04-15] MEDS: cloNIDine 0.1 MG TABLET PO SCH ×2 (08:34→20:16)
[2017-04-15] MEDS: ISOSORBIDE MONONITRATE 30 MG TABLET PO SCH (08:34)
[2017-04-15] MEDS: SODIUM BICARBONATE 650 MG TABLET PO SCH ×2 (08:34→20:17)
[2017-04-15] MEDS: ASCORBIC ACID 500 MG TABLET PO SCH ×2 (08:34→20:17)
[2017-04-15] MEDS: GABAPENTIN 100 MG CAPSULE PO SCH ×2 (08:34→20:16)
[2017-04-15] MEDS: POTASSIUM CHLORIDE 20 MEQ TABLET PO SCH (08:34)
[2017-04-15] MEDS: BUMETANIDE 1 MG/4 ML VIAL IV SCH ×2 (08:54→20:17)
[2017-04-15] MEDS: BUDESONIDE/FORMOTEROL 160-4.5 INHALER 6 GM INH SCH ×2 (08:55→20:20)
[2017-04-15] MEDS ORDERED: DIAZEPAM 5 MG TABLET PO ONE (10:56)
[2017-04-15] MEDS: SODIUM CHLORIDE 0.45% 1,000 ML IV SCH (14:29)
[2017-04-15] MEDS: ACETAMINOPHEN 325 MG TABLET PO PRN (16:41)
[2017-04-15] MEDS: INSULIN GLARGINE 100 UNIT/ML SUBCUT SCH (21:17)
[2017-04-16 06:52] LABS: Basophils % 0.6 % (0.0-0.8); Eosinophils # 0.1 10*3/uL (0.0-0.87); Eosinophils % 1.4 % (0.00-10.9); Hematocrit 30.1 VOL% (35.7-47.0); Hemoglobin 9.9 GM/DL (12.0-16.0); Immature Granulocytes % 0.5 %; Immature Granulocytes Absolute 0.03 #; Lymphocytes # 0.7 10*3/uL (1.4-4.0); Lymphocytes % 11.1 % (21.3-54.2); Mean Corpuscular HGB Conc 32.9 GM/DL (32-36); Mean Corpuscular Hemoglobin 28 PG (27-34); Mean Corpuscular Volume 84.6 FL (87-102); Mean Platelet Volume 12.9 FL (9.6-12.0); Monocytes # 0.7 10*3/uL (0.11-0.8); Monocytes % 11.7 % (1.7-12.7); Neutrophils # 4.7 10*3/uL (1.4-7.4); Neutrophils % 74.7 % (38.7-73.9); Platelet Count 247 T/CUMM (130-400); Red Blood Count 3.56 MC/CUMM (3.8-5.5); Red Cell Distribution Width 17.2 % (9.3-17.3); White Blood Count 6.2 T/CUMM (4-12)
[2017-04-16 07:18] LABS: Calcium 9.2 MG/DL (8.5-10.1); Potassium 4.9 MMOL/L (3.5-5.1)
[2017-04-16 08:08] LABS: Albumin 2.9 G/DL (3.4-5.0); Bilirubin,Direct 2.47 MG/DL (0.0-0.20); Bilirubin,Indirect 0.5 MG/DL (0.0-1.0)
[2017-04-16] MEDS: METOCLOPRAMIDE 10 MG/10 ML UDCUP PO SCH ×4 (09:09→21:23)
[2017-04-16] MEDS: SODIUM BICARBONATE 650 MG TABLET PO SCH ×2 (09:10→21:21)
[2017-04-16] MEDS: ASCORBIC ACID 500 MG TABLET PO SCH ×2 (09:10→21:22)
[2017-04-16] MEDS: ISOSORBIDE MONONITRATE 30 MG TABLET PO SCH (09:10)
[2017-04-16] MEDS: MAGNESIUM OXIDE 400 MG TABLET PO SCH ×2 (09:10→21:21)
[2017-04-16] MEDS: POTASSIUM CHLORIDE 20 MEQ TABLET PO SCH (09:10)
[2017-04-16] MEDS: BUMETANIDE 1 MG/4 ML VIAL IV SCH ×2 (09:11→21:24)
[2017-04-16] MEDS: INSULIN LISPRO 100 UNIT/ML SUBCUT SCH ×4 (09:11→21:20)
[2017-04-16] MEDS: BUDESONIDE/FORMOTEROL 160-4.5 INHALER 6 GM INH SCH ×2 (09:16→21:23)
[2017-04-16] MEDS: GABAPENTIN 100 MG CAPSULE PO SCH ×2 (09:16→21:22)
[2017-04-16] MEDS: SODIUM CHLORIDE 0.45% 1,000 ML IV SCH (13:23)
[2017-04-16] MEDS: INSULIN GLARGINE 100 UNIT/ML SUBCUT SCH (21:23)
[2017-04-17 06:43] LABS: Basophils % 0.7 % (0.0-0.8); Eosinophils # 0.1 10*3/uL (0.0-0.87); Eosinophils % 2.5 % (0.00-10.9); Hematocrit 28.5 VOL% (35.7-47.0); Hemoglobin 9.5 GM/DL (12.0-16.0); Immature Granulocytes % 0.4 %; Immature Granulocytes Absolute 0.02 #; Lymphocytes # 0.9 10*3/uL (1.4-4.0); Lymphocytes % 15.5 % (21.3-54.2); Mean Corpuscular HGB Conc 33.3 GM/DL (32-36); Mean Corpuscular Hemoglobin 27 PG (27-34); Mean Corpuscular Volume 82.1 FL (87-102); Mean Platelet Volume 13.5 FL (9.6-12.0); Monocytes # 0.7 10*3/uL (0.11-0.8); Monocytes % 12.5 % (1.7-12.7); NRBC # 0.02 10*3/uL; Neutrophils # 3.8 10*3/uL (1.4-7.4); Neutrophils % 68.4 % (38.7-73.9); Platelet Count 242 T/CUMM (130-400); Red Blood Count 3.47 MC/CUMM (3.8-5.5); Red Cell Distribution Width 17.2 % (9.3-17.3); White Blood Count 5.6 T/CUMM (4-12)
[2017-04-17 07:21] LABS: Calcium 8.9 MG/DL (8.5-10.1); Osmolality,Calculated 291.1 MOS/KG (273-304); Potassium 5.4 MMOL/L (3.5-5.1)
[2017-04-17] MEDS ORDERED: SODIUM CHLORIDE 0.45% 1,000 ML IV SCH (07:30)
[2017-04-17] MEDS: METOCLOPRAMIDE 10 MG/10 ML UDCUP PO SCH ×4 (11:02→21:26)
[2017-04-17] MEDS: SODIUM BICARBONATE 650 MG TABLET PO SCH ×2 (11:17→21:25)
[2017-04-17] MEDS: ISOSORBIDE MONONITRATE 30 MG TABLET PO SCH (11:18)
[2017-04-17] MEDS: ASCORBIC ACID 500 MG TABLET PO SCH ×2 (11:18→21:25)
[2017-04-17] MEDS: MAGNESIUM OXIDE 400 MG TABLET PO SCH ×2 (11:20→21:26)
[2017-04-17] MEDS: GABAPENTIN 100 MG CAPSULE PO SCH ×2 (11:21→21:25)
[2017-04-17] MEDS: BUDESONIDE/FORMOTEROL 160-4.5 INHALER 6 GM INH SCH ×2 (11:21→21:29)
[2017-04-17] MEDS: BUMETANIDE 1 MG/4 ML VIAL IV SCH ×2 (11:25→21:27)
[2017-04-17] MEDS: INSULIN LISPRO 100 UNIT/ML SUBCUT SCH ×3 (13:12→21:28)
[2017-04-17] MEDS: INSULIN GLARGINE 100 UNIT/ML SUBCUT SCH (21:26)
[2017-04-18] MEDS ORDERED: ONDANSETRON 4 MG/2 ML VIAL IV PRN ×2 (00:44→01:16)
[2017-04-18] MEDS ORDERED: ONDANSETRON 4 MG/2 ML VIAL ONE (02:18)
[2017-04-18] MEDS: ACETAMINOPHEN 325 MG TABLET PO PRN (04:05)
[2017-04-18 06:10] LABS: Basophils # 0.1 10*3/uL (0.0-0.2); Eosinophils # 0.2 10*3/uL (0.0-0.87); Eosinophils % 3.5 % (0.00-10.9); Hematocrit 29.3 VOL% (35.7-47.0); Hemoglobin 9.8 GM/DL (12.0-16.0); Immature Granulocytes % 0.5 %; Immature Granulocytes Absolute 0.03 #; Lymphocytes % 16.6 % (21.3-54.2); Mean Corpuscular HGB Conc 33.4 GM/DL (32-36); Mean Corpuscular Hemoglobin 28 PG (27-34); Mean Platelet Volume 12.8 FL (9.6-12.0); Monocytes # 0.9 10*3/uL (0.11-0.8); Monocytes % 14.2 % (1.7-12.7); NRBC # 0.02 10*3/uL; Neutrophils % 64.2 % (38.7-73.9); Platelet Count 271 T/CUMM (130-400); Red Blood Count 3.53 MC/CUMM (3.8-5.5); Red Cell Distribution Width 17.3 % (9.3-17.3); White Blood Count 6.3 T/CUMM (4-12)
[2017-04-18 06:41] LABS: Calcium 9.1 MG/DL (8.5-10.1); Osmolality,Calculated 287.8 MOS/KG (273-304); Potassium 4.1 MMOL/L (3.5-5.1)
[2017-04-18] MEDS: METOCLOPRAMIDE 10 MG/10 ML UDCUP PO SCH ×4 (08:41→20:38)
[2017-04-18] MEDS: GABAPENTIN 100 MG CAPSULE PO SCH ×2 (08:42→20:39)
[2017-04-18] MEDS: MAGNESIUM OXIDE 400 MG TABLET PO SCH ×2 (08:42→20:38)
[2017-04-18] MEDS: SODIUM BICARBONATE 650 MG TABLET PO SCH ×2 (08:42→20:38)
[2017-04-18] MEDS: ASCORBIC ACID 500 MG TABLET PO SCH ×2 (08:43→20:39)
[2017-04-18] MEDS: ISOSORBIDE MONONITRATE 30 MG TABLET PO SCH (08:43)
[2017-04-18] MEDS: BUMETANIDE 1 MG/4 ML VIAL IV SCH ×2 (08:45→20:39)
[2017-04-18] MEDS: BUDESONIDE/FORMOTEROL 160-4.5 INHALER 6 GM INH SCH ×2 (08:53→20:40)
[2017-04-18] MEDS: INSULIN LISPRO 100 UNIT/ML SUBCUT SCH ×5 (12:09→21:56)
[2017-04-18] MEDS: INSULIN GLARGINE 100 UNIT/ML SUBCUT SCH (21:56)
[2017-04-18] MEDS: MAGNESIUM HYDROXIDE SUSP 30 ML UDCUP PO PRN (22:29)
[2017-04-19] MEDS: INSULIN LISPRO 100 UNIT/ML SUBCUT SCH ×4 (09:12→21:47)
[2017-04-19] MEDS: METOCLOPRAMIDE 10 MG/10 ML UDCUP PO SCH ×4 (09:13→21:46)
[2017-04-19] MEDS: BUMETANIDE 1 MG/4 ML VIAL IV SCH ×2 (09:13→21:48)
[2017-04-19] MEDS: ASCORBIC ACID 500 MG TABLET PO SCH ×2 (09:14→22:16)
[2017-04-19] MEDS: SODIUM BICARBONATE 650 MG TABLET PO SCH ×2 (09:14→21:46)
[2017-04-19] MEDS: ISOSORBIDE MONONITRATE 30 MG TABLET PO SCH (09:14)
[2017-04-19] MEDS: MAGNESIUM OXIDE 400 MG TABLET PO SCH ×2 (09:14→21:46)
[2017-04-19] MEDS: GABAPENTIN 100 MG CAPSULE PO SCH ×2 (09:14→21:55)
[2017-04-19] MEDS: BUDESONIDE/FORMOTEROL 160-4.5 INHALER 6 GM INH SCH ×2 (09:18→21:55)
[2017-04-19] MEDS: MAGNESIUM HYDROXIDE SUSP 30 ML UDCUP PO PRN (18:01)
[2017-04-19] MEDS ORDERED: INSULIN GLARGINE 100 UNIT/ML SUBCUT SCH (21:00)
[2017-04-19] MEDS: ACETAMINOPHEN 325 MG TABLET PO PRN (22:16)
[2017-04-20 06:50] LABS: Basophils # 0.1 10*3/uL (0.0-0.2); Basophils % 0.9 % (0.0-0.8); Eosinophils # 0.2 10*3/uL (0.0-0.87); Eosinophils % 2.4 % (0.00-10.9); Hematocrit 31.7 VOL% (35.7-47.0); Hemoglobin 9.9 GM/DL (12.0-16.0); Immature Granulocytes % 0.3 %; Immature Granulocytes Absolute 0.02 #; Lymphocytes # 1.1 10*3/uL (1.4-4.0); Lymphocytes % 16.2 % (21.3-54.2); Mean Corpuscular HGB Conc 31.2 GM/DL (32-36); Mean Corpuscular Hemoglobin 27 PG (27-34); Mean Corpuscular Volume 85.7 FL (87-102); Mean Platelet Volume 12.9 FL (9.6-12.0); Monocytes # 0.8 10*3/uL (0.11-0.8); Monocytes % 12.4 % (1.7-12.7); Neutrophils # 4.5 10*3/uL (1.4-7.4); Neutrophils % 67.8 % (38.7-73.9); Platelet Count 254 T/CUMM (130-400); Red Cell Distribution Width 17.9 % (9.3-17.3); White Blood Count 6.6 T/CUMM (4-12)
[2017-04-20 07:28] LABS: Calcium 8.7 MG/DL (8.5-10.1); Osmolality,Calculated 289.1 MOS/KG (273-304); Potassium 4.2 MMOL/L (3.5-5.1)
[2017-04-20] MEDS: BUMETANIDE 1 MG/4 ML VIAL IV SCH (09:40)
[2017-04-20] MEDS: GABAPENTIN 100 MG CAPSULE PO SCH (09:40)
[2017-04-20] MEDS: INSULIN LISPRO 100 UNIT/ML SUBCUT SCH ×2 (09:40→13:00)
[2017-04-20] MEDS: METOCLOPRAMIDE 10 MG/10 ML UDCUP PO SCH ×2 (09:40→13:00)
[2017-04-20] MEDS: ISOSORBIDE MONONITRATE 30 MG TABLET PO SCH (09:41)
[2017-04-20] MEDS: MAGNESIUM OXIDE 400 MG TABLET PO SCH (09:41)
[2017-04-20] MEDS: SODIUM BICARBONATE 650 MG TABLET PO SCH (09:41)
[2017-04-20] MEDS: ACETAMINOPHEN 325 MG TABLET PO PRN (09:48)
[2017-04-20] MEDS: ASCORBIC ACID 500 MG TABLET PO SCH (09:49)
[2017-04-20] MEDS: BUDESONIDE/FORMOTEROL 160-4.5 INHALER 6 GM INH SCH (09:50)
[2017-04-20 13:20] VITALS: BP 149/83
== END 2017-04-20 16:35 | disposition home health service (06) | DRG 194 ==
LOC: EDBD → EDUNIT# → N.ED 17:40 → N.EDINP 17:40 → N.5E 21:56 → SUATTDRO 04-14 10:23
PROVIDERS: ATTEND Internal Medicine

== ENCOUNTER 2017-05-21 10:29 | Inpatient (IN) ==
[2017-05-21] MEDS ORDERED: MAGNESIUM SULF RIDER 2 GM in PREMIX 1 EACH IV PRN (11:20)
[2017-05-21] MEDS ORDERED: MAGNESIUM SULF RIDER 4 GM in PREMIX 1 EACH IV PRN (11:20)
[2017-05-21] MEDS ORDERED: ALUMINUM/MAGNES/SIMETH MAX STR 30 ML UDCUP PO PRN (12:13)
[2017-05-21] MEDS ORDERED: DOCUSATE SODIUM 100 MG CAPSULE PO PRN (12:13)
[2017-05-21] MEDS ORDERED: POLYETHYLENE GLYCOL POWDER 17 GM PACK PO PRN (12:13)
[2017-05-21] MEDS ORDERED: NITROGLYCERIN SL 0.4 MG TABLET SL PRN (12:13)
[2017-05-21] MEDS ORDERED: ACETAMINOPHEN 325 MG TABLET PO PRN (12:13)
[2017-05-21] MEDS ORDERED: BISACODYL 10 MG SUPP RECTAL PRN (12:13)
[2017-05-21] MEDS ORDERED: GLUCAGON 1 MG VIAL IM PRN (12:18)
[2017-05-21] MEDS ORDERED: DEXTROSE 50% 25 GM/50 ML VIAL IV PRN (12:18)
[2017-05-21] MEDS: miSOPROStol 200 MCG TABLET PO SCH ×2 (17:55→20:40)
[2017-05-21] MEDS: INSULIN LISPRO 100 UNIT/ML SUBCUT SCH ×2 (17:55→20:44)
[2017-05-21] MEDS: ONDANSETRON 4 MG/2 ML VIAL IV PRN (17:55)
[2017-05-21] MEDS: ALBUMIN 25% 25 GM in PREMIX 1 EACH IV SCH ×2 (18:37→23:12)
[2017-05-21] MEDS: BUDESONIDE/FORMOTEROL 160-4.5 INHALER 6 GM INH SCH (20:40)
[2017-05-21] MEDS: GABAPENTIN 100 MG CAPSULE PO SCH (20:40)
[2017-05-21] MEDS: ENOXAPARIN 30 MG/0.3 ML SYRINGE SUBCUT SCH (20:40)
[2017-05-21] MEDS: cloNIDine 0.1 MG TABLET PO SCH (20:40)
[2017-05-21] MEDS: ASCORBIC ACID 500 MG TABLET PO SCH (20:40)
[2017-05-21] MEDS: CARVEDILOL 25 MG TABLET PO SCH (20:40)
[2017-05-22 05:17] LABS: Basophils # 0.1 10*3/uL (0.0-0.2); Basophils % 0.6 % (0.0-0.8); Eosinophils # 0.1 10*3/uL (0.0-0.87); Eosinophils % 0.9 % (0.00-10.9); Hemoglobin 8.7 GM/DL (12.0-16.0); Immature Granulocytes % 1.2 %; Lymphocytes # 0.9 10*3/uL (1.4-4.0); Lymphocytes % 10.8 % (21.3-54.2); Mean Corpuscular HGB Conc 33.5 GM/DL (32-36); Mean Corpuscular Hemoglobin 27 PG (27-34); Mean Corpuscular Volume 81.5 FL (87-102); Monocytes # 1.1 10*3/uL (0.11-0.8); Monocytes % 12.4 % (1.7-12.7); NRBC # 0.07 10*3/uL; Neutrophils # 6.4 10*3/uL (1.4-7.4); Neutrophils % 74.1 % (38.7-73.9); Platelet Count 164 T/CUMM (130-400); Red Blood Count 3.19 MC/CUMM (3.8-5.5); Red Cell Distribution Width 24.1 % (9.3-17.3); White Blood Count 8.6 T/CUMM (4-12)
[2017-05-22 05:44] LABS: Osmolality,Calculated 293.4 MOS/KG (273-304); Potassium 5.5 MMOL/L (3.5-5.1)
[2017-05-22 06:10] LABS: Band Neutrophils 1 % (0-10); Hypochromasia 2+; Lymphocytes 10 % (20-55); Microcytosis 1+; Nucleated Red Blood Cells 1 (0-5); Platelet Estimate Adequate; Segmented Neutrophils 75 % (50-85); Total Cells Counted 100
[2017-05-22] MEDS: INSULIN LISPRO 100 UNIT/ML SUBCUT SCH ×4 (07:59→21:13)
[2017-05-22] MEDS: INSULIN GLARGINE 100 UNIT/ML SUBCUT SCH (09:12)
[2017-05-22] MEDS: miSOPROStol 200 MCG TABLET PO SCH ×4 (09:13→21:13)
[2017-05-22] MEDS: ASCORBIC ACID 500 MG TABLET PO SCH ×2 (09:14→21:13)
[2017-05-22] MEDS: CARVEDILOL 25 MG TABLET PO SCH ×2 (09:14→18:21)
[2017-05-22] MEDS: ASPIRIN EC 81 MG TABLET PO SCH (09:14)
[2017-05-22] MEDS: PANTOPRAZOLE 40 MG TABLET PO SCH (09:14)
[2017-05-22] MEDS: ISOSORBIDE MONONITRATE 30 MG TABLET PO SCH (09:15)
[2017-05-22] MEDS: BUDESONIDE/FORMOTEROL 160-4.5 INHALER 6 GM INH SCH ×2 (09:15→21:13)
[2017-05-22] MEDS: cloNIDine 0.1 MG TABLET PO SCH ×2 (09:15→21:13)
[2017-05-22] MEDS: ALBUMIN 25% 25 GM in PREMIX 1 EACH IV SCH (12:14)
[2017-05-22] MEDS: ENOXAPARIN 30 MG/0.3 ML SYRINGE SUBCUT SCH (21:13)
[2017-05-22] MEDS: GABAPENTIN 100 MG CAPSULE PO SCH (21:13)
[2017-05-23 05:43] LABS: Basophils # 0.1 10*3/uL (0.0-0.2); Basophils % 0.7 % (0.0-0.8); Eosinophils # 0.1 10*3/uL (0.0-0.87); Hematocrit 26.4 VOL% (35.7-47.0); Hemoglobin 9.2 GM/DL (12.0-16.0); Immature Granulocytes % 2.1 %; Immature Granulocytes Absolute 0.14 #; Lymphocytes % 14.7 % (21.3-54.2); Mean Corpuscular HGB Conc 34.8 GM/DL (32-36); Mean Corpuscular Hemoglobin 27 PG (27-34); Mean Corpuscular Volume 78.6 FL (87-102); Monocytes # 0.9 10*3/uL (0.11-0.8); NRBC # 0.07 10*3/uL; Neutrophils # 4.6 10*3/uL (1.4-7.4); Neutrophils % 68.5 % (38.7-73.9); Platelet Count 174 T/CUMM (130-400); Red Blood Count 3.36 MC/CUMM (3.8-5.5); Red Cell Distribution Width 24.6 % (9.3-17.3); White Blood Count 6.7 T/CUMM (4-12)
[2017-05-23 06:05] LABS: Osmolality,Calculated 294.5 MOS/KG (273-304); Potassium 5.6 MMOL/L (3.5-5.1)
[2017-05-23] MEDS: INSULIN LISPRO 100 UNIT/ML SUBCUT SCH ×4 (08:31→21:04)
[2017-05-23] MEDS: INSULIN GLARGINE 100 UNIT/ML SUBCUT SCH (08:31)
[2017-05-23] MEDS: ASPIRIN EC 81 MG TABLET PO SCH (08:32)
[2017-05-23] MEDS: ISOSORBIDE MONONITRATE 30 MG TABLET PO SCH (08:32)
[2017-05-23] MEDS: cloNIDine 0.1 MG TABLET PO SCH ×2 (08:32→21:04)
[2017-05-23] MEDS: miSOPROStol 200 MCG TABLET PO SCH ×4 (08:32→21:04)
[2017-05-23] MEDS: PANTOPRAZOLE 40 MG TABLET PO SCH (08:32)
[2017-05-23] MEDS: ASCORBIC ACID 500 MG TABLET PO SCH ×2 (08:32→21:04)
[2017-05-23] MEDS: CARVEDILOL 25 MG TABLET PO SCH ×2 (08:32→16:21)
[2017-05-23] MEDS: BUDESONIDE/FORMOTEROL 160-4.5 INHALER 6 GM INH SCH ×2 (08:34→21:05)
[2017-05-23 10:47] LABS: Hypochromasia Slight; Macrocytosis 1+; Polychromasia Slight; Target Cells Slight
[2017-05-23] MEDS: SODIUM BICARB INJ 150 MEQ in STERILE WATER INJ 1,000 ML IV SCH (12:30)
[2017-05-23] MEDS: ENOXAPARIN 30 MG/0.3 ML SYRINGE SUBCUT SCH (21:04)
[2017-05-23] MEDS: GABAPENTIN 100 MG CAPSULE PO SCH (21:04)
[2017-05-23] MEDS: ZALEPLON 5 MG CAPSULE PO PRN (21:04)
[2017-05-24] MEDS: ONDANSETRON 4 MG/2 ML VIAL IV PRN ×2 (05:13→11:33)
[2017-05-24 05:20] LABS: Basophils % 0.6 % (0.0-0.8); Eosinophils # 0.1 10*3/uL (0.0-0.87); Eosinophils % 1.9 % (0.00-10.9); Hematocrit 26.1 VOL% (35.7-47.0); Hemoglobin 8.7 GM/DL (12.0-16.0); Immature Granulocytes Absolute 0.13 #; Lymphocytes # 0.8 10*3/uL (1.4-4.0); Lymphocytes % 13.2 % (21.3-54.2); Mean Corpuscular HGB Conc 33.3 GM/DL (32-36); Mean Corpuscular Hemoglobin 27 PG (27-34); Mean Corpuscular Volume 81.1 FL (87-102); Monocytes # 0.8 10*3/uL (0.11-0.8); Monocytes % 12.4 % (1.7-12.7); NRBC # 0.09 10*3/uL; Neutrophils # 4.4 10*3/uL (1.4-7.4); Neutrophils % 69.9 % (38.7-73.9); Platelet Count 181 T/CUMM (130-400); Red Blood Count 3.22 MC/CUMM (3.8-5.5); Red Cell Distribution Width 24.1 % (9.3-17.3); White Blood Count 6.4 T/CUMM (4-12)
[2017-05-24 05:47] LABS: Giant Platelets Few; Hypochromasia 1+; Platelet Estimate Normal; Target Cells Few
[2017-05-24 05:48] LABS: Microcytosis Slight
[2017-05-24 05:51] LABS: Osmolality,Calculated 296.2 MOS/KG (273-304); Potassium 4.7 MMOL/L (3.5-5.1)
[2017-05-24] MEDS: ASCORBIC ACID 500 MG TABLET PO SCH ×2 (09:07→20:42)
[2017-05-24] MEDS: PANTOPRAZOLE 40 MG TABLET PO SCH (09:08)
[2017-05-24] MEDS: cloNIDine 0.1 MG TABLET PO SCH ×2 (09:08→20:43)
[2017-05-24] MEDS: miSOPROStol 200 MCG TABLET PO SCH ×4 (09:08→20:43)
[2017-05-24] MEDS: ISOSORBIDE MONONITRATE 30 MG TABLET PO SCH (09:08)
[2017-05-24] MEDS: ASPIRIN EC 81 MG TABLET PO SCH (09:08)
[2017-05-24] MEDS: INSULIN GLARGINE 100 UNIT/ML SUBCUT SCH (09:13)
[2017-05-24] MEDS: INSULIN LISPRO 100 UNIT/ML SUBCUT SCH ×4 (09:29→20:53)
[2017-05-24] MEDS: CARVEDILOL 25 MG TABLET PO SCH ×2 (09:29→17:20)
[2017-05-24] MEDS: SODIUM BICARB INJ 150 MEQ in STERILE WATER INJ 1,000 ML IV SCH (09:50)
[2017-05-24] MEDS: BUDESONIDE/FORMOTEROL 160-4.5 INHALER 6 GM INH SCH ×2 (10:06→20:44)
[2017-05-24] MEDS: ISOSORBIDE MONONITRATE 60 MG TABLET PO SCH (15:18)
[2017-05-24 15:50] LABS: Apearance,Urine Slightly Hazy (Clear); Bilirubin,Urine Moderate mg/dL (Negative); Blood, Urine Negative (Negative); Glucose,Urine (UA) >=500 mg/dL (Negative); Ketones,Urine Negative (Negative); Nitrite,Urine Negative (Negative); Protein,Urine >=500 MG/DL; RBC,Urine 3 /HPF (0-4); Squamous Epithelial Cell,Urine Occasional /HPF (0-10); Urine Color Amber (Yellow); Urine Specific Gravity 1.012 (1.001-1.035); WBC,Urine 4 /HPF (0-6)
[2017-05-24] MEDS: ZALEPLON 5 MG CAPSULE PO PRN (20:43)
[2017-05-24] MEDS: GABAPENTIN 100 MG CAPSULE PO SCH (20:43)
[2017-05-24] MEDS: ENOXAPARIN 30 MG/0.3 ML SYRINGE SUBCUT SCH (20:46)
[2017-05-25 08:30] VITALS: BP 182/83
[2017-05-25] MEDS: ISOSORBIDE MONONITRATE 60 MG TABLET PO SCH (10:19)
[2017-05-25] MEDS: miSOPROStol 200 MCG TABLET PO SCH (10:19)
[2017-05-25] MEDS: ASCORBIC ACID 500 MG TABLET PO SCH (10:19)
[2017-05-25] MEDS: CARVEDILOL 25 MG TABLET PO SCH (10:19)
[2017-05-25] MEDS: ASPIRIN EC 81 MG TABLET PO SCH (10:19)
[2017-05-25] MEDS: cloNIDine 0.1 MG TABLET PO SCH (10:19)
[2017-05-25] MEDS: PANTOPRAZOLE 40 MG TABLET PO SCH (10:20)
[2017-05-25] MEDS: INSULIN GLARGINE 100 UNIT/ML SUBCUT SCH (10:22)
[2017-05-25] MEDS: BUDESONIDE/FORMOTEROL 160-4.5 INHALER 6 GM INH SCH (10:23)
[2017-05-25] MEDS: INSULIN LISPRO 100 UNIT/ML SUBCUT SCH (10:27)
[2017-05-25] MEDS: SODIUM BICARB INJ 150 MEQ in STERILE WATER INJ 1,000 ML IV SCH (10:28)
== END 2017-05-25 11:05 | disposition hospice, home (50) | DRG 194 ==
LOC: N.TELEN 14:27
PROVIDERS: ADMIT Internal Medicine Cardiovascular Disease; ATTEND Internal Medicine Cardiovascular Disease